=== PATIENT | male | born 1945 | race Caucasian/White ===

== ENCOUNTER 2019-10-08 14:46 | Outpatient (CLI) | payer MEDICARE, BC, SELFPAY ==
--- NOTE | ~2019-10-08 | US_ITS ---
EXAMINATION: US art doppler w press LE BI DATE: 10/08/2019 16:14 CDT INDICATION: Arterial insufficiency TECHNIQUE: Segmental pressures and plethysmographic and Doppler waveforms of the brachial and lower e xtremity arteries were obtained. COMPARISON: None. FINDINGS: Right and left brachial artery pressures of 139 mm Hg and 1:30 mm Hg, respectively, are concordant (n ormal difference <= 30 mmHg). The right high-thigh pressure index could not be calculated. (normal > 1.2). The right ankle-brachial index (MEÑO) is 1.33 (normal >= 0.9-1.0). The right great toe-brachial index (TBI) is 1.03 (normal >= 0.60). The right lower extremity segmental pressure gradients are normal (normal gradients <= 20-30 mmHg between adjacent levels on the same leg or the same levels on the two legs). Arterial Doppler wa veforms are biphasic. The left high-thigh pressure index is 1.37. The left MEÑO is 1.09. The left TBI is 0.99. The left lowe r extremity segmental pressure gradients are normal. Arterial Doppler waveforms are biphasic. IMPRESSION: 1. Normal bilateral ankle and toe brachial indices. Reviewed, dictated and finalized at location A.
== END 2019-10-08 14:47 | disposition home or self-care (01) ==
PROVIDERS: PCP Family Medicine; Visit Provider Orthopaedic Surgery
DX: I77.1 Stricture of artery (principal)
CPT/HCPCS: 93923

== ENCOUNTER 2022-01-24 15:46 | Inpatient (IN) | payer MEDICARE, BC, SELFPAY ==
--- NOTE | ~2022-01-24 | XR_ITS ---
EXAMINATION: XR foot LT 2V INDICATION: Left foot pain TECHNIQUE: Two views of the left foot are obtained in nonstandard projections. COMPARISON: None available FINDINGS: Fractures of the distal fibula and medial malleolus are described on the ankle radiographs. No definite additional fracture is identified. There is moderate osteoarthritis at the first metatar sophalangeal joint and severe osteoarthritis in multiple interphalangeal joints. IMPRESSION: 1. 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 2. Ankle fracture as detailed on the ankle radiographs. Reviewed, dictated and finalized at location A.
--- NOTE | ~2022-01-24 | XR_ITS ---
EXAMINATION: XR surgery orthopedic DATE: 02/02/2022 08:45 INDICATION: ORIF left ankle fracture. TECHNIQUE: 3 fluoroscopic images of the ankle were obtained during procedure performed by Dr. Hendrix . Radiologist was not present for the imaging or procedure. The amount of fluoroscopy time used durin g this procedure was 0.2 minutes. COMPARISON: 01/24/2022 FINDINGS: Interval open reduction internal fixation of the previously identified bimalleolar fracture of the le ft ankle. The medial malleolar fractures fixed with a single cannulated lag screw. The lateral malleo lar fractures fixed with a lateral plate and screws including 2 screws which span the distal tibiofib ular syndesmosis. Alignment appears near-anatomic. No new fractures identified. Expected small amount of postoperative gas in the soft tissues at the operative bed. The profiled portions of the tibiotal ar and subtalar joint spaces appear normal. IMPRESSION: 1. Near-anatomic alignment post internal fixation of medial and lateral malleolar fractures at the le ft ankle. Reviewed, dictated and finalized at location A. IMPRESSION: 1. Near-anatomic alignment post internal fixation of medial and lateral malleol ar fractures at the left ankle.
--- NOTE | ~2022-01-24 | XR_ITS ---
EXAMINATION: XR tibia fibula LT 2V INDICATION: Left leg pain and swelling TECHNIQUE: Two views of the left tibia and fibula are obtained. COMPARISON: None available FINDINGS: There are acute fractures of the distal fibula and medial malleolus, detailed on ankle radi ographs. No additional fracture is identified. Alignment at the knee is normal. IMPRESSION: 1. Acute fractures of the distal fibula and medial malleolus detailed on the ankle radiographs. Reviewed, dictated and finalized at location A. IMPRESSION: 1. Acute fractures of the distal fibula and medial malleolus detailed on the an kle radiographs.
--- NOTE | ~2022-01-24 | XR_ITS ---
EXAMINATION: XR chest 1V portable INDICATION: Tachycardia TECHNIQUE: Portable AP chest at 1755 hours COMPARISON: 09/15/2018 FINDINGS: The lungs are free of acute opacities. No pleural effusion or pneumothorax. The cardiomedia stinal silhouette is normal for technique. Changes of fusion procedure are noted in the lower cervica l spine. IMPRESSION: 1. No acute cardiopulmonary abnormality. Reviewed, dictated and finalized at location A.
--- NOTE | ~2022-01-24 | XR_ITS ---
EXAMINATION: XR ankle LT 2V DATE: 01/24/2022 16:51 INDICATION: Left ankle pain, initial encounter TECHNIQUE: Left ankle are obtained.. COMPARISON: None. FINDINGS: There is an acute, traumatic, closed, oblique fracture of the distal fibula extending to th e level of the tibial plafond. The distal fracture fragment is laterally displaced approximately one half shaft width. There is a transverse fracture of the medial malleolus just below the level of the tibial plafond. There is diffuse soft tissue swelling of ankle. Alignment at the tibiotalar joint joel ears to be maintained. No additional fracture is identified. IMPRESSION: 1. Acute oblique fracture of the distal fibula to the level of the tibial plafond with one half shaft width of lateral displacement of the distal fracture fragment. 2. Transverse fracture of the medial malleolus. Reviewed, dictated and finalized at location A. IMPRESSION: 1. Acute oblique fracture of the distal fibula to the level of the tibial plafo nd with one half shaft width of lateral displacement of the distal fracture fra gment. 2. Transverse fracture of the medial malleolus.
[2022-01-24 16:02] VITALS: BP 137/82; PULSE 101; RESP 16; TEMP 36.3; O2SAT 96
--- NOTE | 2022-01-24 16:24 | ED.LOWEXIN ---
HPI - Extremity Injury (Lower) General Chief Complaint: Extremity Injury, Lower Stated Complaint: FALL, LLE INJURY, ETOH ON BOARD Time Seen by Provider: 01/24/22 16:14 History of Present Illness HPI Narrative: pt drinks daily says no withdrawl shakes or sz but says fell yesterday or day before yesterday, son in room confirms it was yesterday due to etoh no loc/other injuryies all left ankle sweling bruising refusing pain meds on arrival not sure if previous injury Related Data Home Medications Medication Instructions Recorded Confirmed aspirin 81 mg tablet,delayed 81 mg PO DAILY 09/17/19 09/02/20 release (Adult Low Dose Aspirin) latanoprost 0.005 % eye drops 1 drop ophthalmic (eye) DAILY 09/17/19 09/02/20 donepezil 10 mg tablet 5 mg PO ONCE 09/01/20 09/02/20 Allergies Allergy/AdvReac Type Severity Reaction Status Date / Time house dust Allergy Unknown sneezing Verified 09/24/20 11:05 No Known Allergies Allergy Unknown Unverified 01/24/22 16:07 Review of Systems Constitutional: Comments: CONSTITUTIONAL: Denies fever, chills, or sweats. EYES: Denies visual changes, redness, or discharge. ENT: Denies rhinorrhea, congestion, sore throat, or otalgia. CARDIOVASCULAR: Denies chest pain, palpitations, or edema. RESPIRATORY: Denies cough or dyspnea. GASTROINTESTINAL: Denies abdominal pain, nausea, vomiting, or diarrhea. GENITOURINARY: Denies dysuria or hematuria. SKIN: Denies rash or itching. MUSCULOSKELETAL: Denies back pain, has left ankle bruising and swelling/injury NEUROLOGIC: Denies headache, numbness, or weakness. PSYCHIATRIC: Denies anxiety or depression. [facility] Past Medical History Medical History (Updated 01/24/22 @ 17:41 by Lucy Dee MD) Clawtoe, acquired Hallux valgus (acquired), right foot Hammertoe of right foot Family History Family History Father Family history of chronic obstructive pulmonary disease Patient's father is , Onset Age: 82 Diabetes mellitus Family history of hypercholesterolemia Family history of cardiovascular disease Family history of congestive heart failure Mother Family history of dementia Patient's mother is , Onset Age: 82 Diabetes mellitus Family history of hypercholesterolemia Family history of Alzheimer's disease Other Family history of arthritis Social History Social History Second hand tobacco smoke exposure: Yes Smoking end date: 07/30/77 Alcohol intake: current Alcohol use details: Patient is drinking at least a 12 pack of beer daily. Substance use: never Substance use type: does not use Gender identity (if verbalized by the patient): Male Exam Const: Other: APPEARANCE: Well appearing, no pain in distress, well-nourished. old etoh smell to breath Head normocephalic atraumtaic. EYES: PERRLA/EOMI, conjunctivae very clear. NOSE: Normal no drainage EARS:TMS clear Eris Snider, with good light reflex. THROAT: Pharynx clear, no exudate. NECK: Supple. No adenopathy, no masses. RESPIRATORY: Airway patent, repsirations nonlabored. Clear to auscultation bilaterally, no rales, rhonchi, wheezing. CARDIOVASCULAR: Regular rate and rhythm without murmurs rubs or gallops. ABDOMINAL: Soft, nontender, nondistended, no hepatosplenomegally MUSCULOSKELETAl: Moves all extremities. Strenght/ROM intact, No edema, No calf tenderness. but decreased rom left ankle with swelling/deformity some to foot and distal tib/fib no knee pain no hip pain or other ext injuries no neck or back pain NEURO: Alert. Cranial nerves II through XII intact. Good gait. Good coordination SKIN:: Warm, dry. Normal Color bruisin swelling left mid tib/fib to tip of toes PSYCHIATRIC: Normal affect/mood, normal interaction with parents. Course Consultations Consultation #1: called dr briones at 1730 wants admitted calling hospitalist at 1740 and pt updated and aw
[2022-01-24] MEDS: THIAMINE HCL 200 MG/2 ML VIAL 100 MG IV PUSH (17:44)
[2022-01-24] MEDS: LORazepam INJ (*CRX) 2 MG/ML VIAL 0.5 MG IV PUSH (17:44)
--- NOTE | 2022-01-24 17:48 | ECG_ITS ---
Measurements Intervals [place] Rate: 104 P: 52 NC: 198 QRS: 1 QRSD: 80 T: -21 QT: 325 QTc: 428 Interpretive Statements SINUS TACHYCARDIA NONSPECIFIC T-WAVE ABNORMALITY LOW VOLTAGE EKG COMPARED TO ECG 09/02/2018 19:35:59 SINUS TACHYCARDIA NOW PRESENT T-WAVE ABNORMALITY NOW PRESENT Electronically Signed On 01-24-2022 19:44:45 CDT by Priti Mendoza M.D.
[2022-01-24] MEDS: SODIUM CHLORIDE 0.9% IV 1,000 ML 150 ML IV CONT (17:52)
[2022-01-24 18:12] LABS: Basophils Percent Auto 0.3 % (0.2-1.2); Eosinophils Percent Auto 0.1 % (0-4.4); Hematocrit 41.1 % (42.0-52.0); Hemoglobin 14.5 g/dL (14.0-18.0); Immature Granulocyte Absolute 0.04 K/mm3 (0.00-0.031); Immature Granulocyte Percent A 0.4 % (0-0.5); Lymphocytes Absolute Auto 1.11 K/mm3 (0.9-3.2); Lymphocytes Percent Auto 10.5 % (18.3-44.2); Mean Corpuscular HGB Conc 35.3 g/dl (32-36); Mean Corpuscular Hemoglobin 33.1 pg (26-34); Mean Corpuscular Volume 93.8 fl (80-100); Monocytes Absolute Auto 0.9 K/mm3 (0.1-0.6); Monocytes Percent Auto 8.7 % (2.6-8.5); Neutrophils Absolute Auto 8.5 K/mm3 (1.3-6.7); Platelet Count Result 328 k/mm3 (150-375); Red Blood Count 4.38 M/mm3 (4.6-6.20); Red Cell Distribution Width 12.5 % (11.5-14.5); White Blood Count 10.6 K/mm3 (4.5-10.0)
[2022-01-24 18:21] LABS: Ethanol < 10 mg/dL (<10)
[2022-01-24 18:24] LABS: INR 1.2; Prothrombin Time 14.7 Seconds (11.1-14.7)
[2022-01-24 18:30] LABS: Alanine Aminotransferase 39 U/L (6-50); Albumin Level 4.5 g/dL (3.5-5.1); Alkaline Phosphatase 73 U/L (38-126); Anion Gap 10 mmol/L (8-16); Aspartate Amino Transferase 68 U/L (17-59); Bilirubin,Total 1.5 mg/dL (0.2-1.3); Blood Urea Nitrogen 7 mg/dL (9-20); Calcium 8.9 mg/dL (8.4-10.2); Carbon Dioxide 23 mmol/L (22-30); Chloride 94 mmol/L (98-107); Estimated CRCL calculation 69 ml/min; Estimated Glomerular Filt Rate > 60; Glucose 122 mg/dL (65-110); Magnesium 2.1 mg/dL (1.6-2.3); Potassium 4.2 mmol/L (3.4-5.0); Sodium 127 mmol/L (137-145)
[2022-01-24 18:53] VITALS: BP 154/94; PULSE 100; RESP 20; O2SAT 96
--- NOTE | 2022-01-24 19:00 | PM.IMHP ---
H&P: HPI History of Present Illness Date/Time: 01/24/22 190 Chief Complaint: Fall Narrative: Mr. Villalobos is a 76-year-old gentleman who states he fell yesterday and was having left ankle pain. Patient denies any lightheadedness, dizziness, syncopal, or near syncopal episodes. Patient states that he did simply tripped and fall. Patient denies any chest pain, shortness a breath, palpitations, orthopnea, or PND. States that he thought the pain would go away and then today when he was unable to move his ankle or bear weight he decided he needed to come to the hospital for further evaluation. Patient's son was at bedside earlier, but had to leave to go check on patient's spouse since she is hospitalized elsewhere. Patient's son did tell the emergency room provider that patient does drink daily between 6-12 beers. Patient's son stated that patient has gone through alcohol withdrawals in the past. Upon evaluation in emergency room patient was noted to have a bimalleolar fracture of the left lower extremity. Patient was noted to have a low-sodium, but it was improved from previous sodium of 123. Patient is unable to tell me what year it is or where he is at, but he is able to state who the president is. Patient did have a splint placed and Orthopedic surgery was consulted. Orthopedic surgery stated they would see patient in the a.m.. Patient has a known history of alcohol abuse, dyslipidemia, hypertension, Alzheimer's disease, and diabetes mellitus. Review of Systems Review of Systems: A 12 point review of systems was completed patient all pertinent positive and negative per HPI the remainder are unremarkable. [facility] Past Medical History Medical History (Updated 01/25/22 @ 00:55 by Susi Torres APRN) Alcohol abuse Benign essential HTN Clawtoe, acquired Dementia Hallux valgus (acquired), right foot Hammertoe of right foot Family History Family History Father Family history of chronic obstructive pulmonary disease Patient's father is , Onset Age: 82 Diabetes mellitus Family history of hypercholesterolemia Family history of cardiovascular disease Family history of congestive heart failure Mother Family history of dementia Patient's mother is , Onset Age: 82 Diabetes mellitus Family history of hypercholesterolemia Family history of Alzheimer's disease Other Family history of arthritis Social History Social History Smoking packs per day: 2 Smoking cigarettes per day: 40.0 Years smoked: 20 Smoking pack-years: 40.00 Smoking status: Former smoker Tobacco type: cigarettes Second hand tobacco smoke exposure: Yes Smoking end date: 01/25/80 Alcohol intake: never Drinks per week: 6 Alcohol use details: Patient is drinking at least a 12 pack of beer daily. Substance use: never Substance use type: does not use Gender identity (if verbalized by the patient): Male Spiritual care concerns: No Meds Home Medications and Allergies Home Medications Medication Instructions Recorded Confirmed Type aspirin 81 mg tablet,delayed 81 mg PO DAILY 09/17/19 01/24/22 History release (Adult Low Dose Aspirin) latanoprost 0.005 % eye drops 1 drop ophthalmic (eye) DAILY 09/17/19 01/24/22 History donepezil 10 mg tablet 5 mg PO ONCE 09/01/20 01/24/22 History amlodipine 5 mg tablet 5 mg PO DAILY 01/24/22 01/24/22 History atorvastatin 10 mg tablet 10 mg PO DAILY 01/24/22 01/24/22 History buspirone 10 mg tablet 10 mg PO BID 01/24/22 01/24/22 History lisinopril 20 1 tablet PO DAILY 01/24/22 01/24/22 History mg-hydrochlorothiazide 12.5 mg tablet metformin 500 mg tablet 500 mg PO BID 01/24/22 01/24/22 History quetiapine 25 mg tablet 25 mg PO BID 01/24/22 01/24/22 History sertraline 100 mg tablet 150 mg PO DAILY 01/24/22 01/24/22 History timolol maleate 0.5 % eye drops 1
[2022-01-24] MEDS: LORazepam INJ (*CRX) 2 MG/ML VIAL 1 MG IV PUSH (19:22)
[2022-01-24 20:00] VITALS: BP 148/75; PULSE 105; PULSE 99; RESP 18; TEMP 36.6; O2SAT 97
[2022-01-24 20:57] VITALS: BMI 28.3
--- NOTE | 2022-01-24 20:59 | ADMGEN ---
This patient, Zohaib Villalobos, was admitted to IMU Room 207-01. Patient/family oriented to hospital policies and general routines including ID bracelet, bed and alarms, visiting hours, pain management, procedures, bathroom and other care routines, personal items, smoking policy, room service/diet, and visiting hours. Information on how to activate the Rapid Response Team has been discussed. Patient/Family are encouraged to report perceived risks to care and to ask questions if they do not understand what they are told or what they should do.
[2022-01-24 22:00] VITALS: PULSE 112
[2022-01-24] MEDS: THIAMINE HCL INJ 100 MG, FOLIC ACID INJ 1 MG, MULTIVITAMINS-12 INJ VIAL 1 5 ML, MULTIVI... 125 MG IV CONT (22:30)
[2022-01-24] MEDS: chlordiazePOXIDE (*CRX) 25 MG CAPSULE PO (22:32)
[2022-01-25] VITALS (10 sets, daily range): BP systolic 138–158; BP diastolic 71–102; PULSE 77–99; RESP 18–22; TEMP 36.1–37.1; O2SAT 96–98
[2022-01-25 05:15] LABS: Basophils Percent Auto 0.3 % (0.2-1.2); Eosinophils Percent Auto 0.3 % (0-4.4); Hemoglobin 13.4 g/dL (14.0-18.0); Immature Granulocyte Absolute 0.04 K/mm3 (0.00-0.031); Immature Granulocyte Percent A 0.5 % (0-0.5); Lymphocytes Absolute Auto 1.34 K/mm3 (0.9-3.2); Lymphocytes Percent Auto 17.4 % (18.3-44.2); Mean Corpuscular HGB Conc 36.2 g/dl (32-36); Mean Corpuscular Hemoglobin 33.8 pg (26-34); Mean Corpuscular Volume 93.4 fl (80-100); Mean Platelet Volume 9.4 fl (7.4-10.4); Monocytes Absolute Auto 0.9 K/mm3 (0.1-0.6); Monocytes Percent Auto 11.2 % (2.6-8.5); Neutrophils Absolute Auto 5.4 K/mm3 (1.3-6.7); Neutrophils Percent Auto 70.3 % (45.5-73.1); Platelet Count Result 250 k/mm3 (150-375); Red Blood Count 3.96 M/mm3 (4.6-6.20); Red Cell Distribution Width 12.1 % (11.5-14.5); White Blood Count 7.7 K/mm3 (4.5-10.0)
[2022-01-25 05:26] LABS: Alanine Aminotransferase 32 U/L (6-50); Albumin Level 3.9 g/dL (3.5-5.1); Alkaline Phosphatase 61 U/L (38-126); Anion Gap 7 mmol/L (8-16); Aspartate Amino Transferase 47 U/L (17-59); Bilirubin,Total 1.4 mg/dL (0.2-1.3); Blood Urea Nitrogen 6 mg/dL (9-20); Calcium 8.2 mg/dL (8.4-10.2); Carbon Dioxide 25 mmol/L (22-30); Chloride 98 mmol/L (98-107); Estimated CRCL calculation 74 ml/min; Estimated Glomerular Filt Rate > 60; Glucose 87 mg/dL (65-110); Magnesium 2.2 mg/dL (1.6-2.3); Potassium 3.5 mmol/L (3.4-5.0); Sodium 130 mmol/L (137-145)
[2022-01-25] MEDS: chlordiazePOXIDE (*CRX) 25 MG CAPSULE PO ×3 (06:40→21:55)
--- NOTE | 2022-01-25 12:36 | PM.CNOR ---
Assessment and Plan Assessment and plan (1) Bimalleolar ankle fracture: Qualifiers: Encounter type: initial encounter Fracture type: closed Laterality: left Qualified Code(s): S82.842A - Displaced bimalleolar fracture of left lower leg, initial encounter for closed fracture Code(s): S82.843A - Displaced bimalleolar fracture of unspecified lower leg, initial encounter for closed fracture Status: Acute Assessment and Plan: Updated history, physical exam and radiographs reviewed with the patient. Interval changes reviewed. Previous patient for bilateral foot and toe deformity. Fall yesterday with left ankle fracture. Admitted for medical observation after splinting. Treatment options including surgical and nonoperative treatment were reviewed. Risks and benefits of each as well as alternatives reviewed. Conservative treatment ice, compression and elevation. Recommend surgical treatment once patient is medically stable. Discussed open reduction internal fixation. Nonweightbearing in the interim. History of Present Illness HPI Consult date: 01/25/22 Requesting physician: Lucy Dee MD Chief complaint: bimalleolar left ankle fx,etoh withdrawal/abuse Narrative: 76-year-old gentleman known to the Orthopedic service for bilateral foot deformity presented to the emergency room yesterday after a fall at home. Complaint of left ankle pain and swelling. Radiographs showed ankle fracture. Patient was splinted in the emergency room has been admitted to the hospital for further care. Patient has had history of multiple falls. He also has a history of neuropathy lower extremities. Complains of pain at the left ankle on both the inner and outer aspect. Denies loss of consciousness. Review of Systems Constitutional: Constitutional: Denies fever(s) Eyes: Eyes: Denies blurry vision ENT: Reports Normal hearing present Cardiovascular: Cardiovascular: Denies chest pain and Denies dyspnea Respiratory: Respiratory: Denies dyspnea and Denies wheezing Gastrointestinal: Gastrointestinal: Denies abdominal pain Genitourinary: Genitourinary: Denies urinary urgency Musculoskeletal: Musculoskeletal: Reports as per HPI and Denies numbness Integumentary/Breasts: Skin/Breast: Denies changing lesions and Denies sores Neurologic: Reports Normal hearing present, Denies behavioral changes, Denies confusion, Denies numbness and Denies convulsions Psychiatric: Psychiatric: Denies behavioral changes, Denies confusion and Denies hallucinations Endocrine: Endocrine: Denies heat intolerance Hematologic/Lymphatic: Hematologic/Lymphatic: Denies easy bleeding Allergic/Immunologic: Allergic/Immunologic: Denies wheezing PMFSH Past Medical History Medical History Alcohol abuse Benign essential HTN Clawtoe, acquired Dementia Hallux valgus (acquired), right foot Hammertoe of right foot Family History Family History Father Family history of chronic obstructive pulmonary disease Patient's father is , Onset Age: 82 Diabetes mellitus Family history of hypercholesterolemia Family history of cardiovascular disease Family history of congestive heart failure Mother Family history of dementia Patient's mother is , Onset Age: 82 Diabetes mellitus Family history of hypercholesterolemia Family history of Alzheimer's disease Other Family history of arthritis Social History Social History Smoking packs per day: 2 Smoking cigarettes per day: 40.0 Years smoked: 20 Smoking pack-years: 40.00 Smoking status: Former smoker Tobacco type: cigarettes Second hand tobacco smoke exposure: Yes Smoking end date: 01/25/80 Alcohol intake: never Drinks per week: 6 Alcohol use details: Patient is drinking at least a 12 pack
--- NOTE | 2022-01-25 14:02 | PM.IMPN ---
Progress Note: A&P Assessment and Plan (1) Bimalleolar ankle fracture: Qualifiers: Encounter type: initial encounter Fracture type: closed Laterality: left Qualified Code(s): S82.842A - Displaced bimalleolar fracture of left lower leg, initial encounter for closed fracture Code(s): S82.843A - Displaced bimalleolar fracture of unspecified lower leg, initial encounter for closed fracture Status: Acute Assessment and Plan: Orthopedic surgery has been consult and appreciate further recommendations. Patient does have a splint on at this time and states he is not having any pain. (2) Alcohol abuse: Code(s): F10.10 - Alcohol abuse, uncomplicated Status: Acute Assessment and Plan: Will place patient on CIWA protocol with p.r.n. Ativan IV. Will also place patient on scheduled Librium. Will also have banana bag infusing. (3) Benign essential HTN: Code(s): I10 - Essential (primary) hypertension Status: Acute Assessment and Plan: Will resume patient's home medications once verified home medication list and adjust medications accordingly for optimal blood pressure control. Subjective Date/time seen: 01/25/22 14:02 pain control no new complaints Exam Narrative: Constitutional: Patient is well-nourished in no acute distress. Patient is alert and oriented x1 HEENT: Moist mucous membranes. No scleral icterus. No lymphadenopathy. Neck: No carotid bruits noted no JVD noted Lungs: Lung sounds are clear to auscultation bilaterally. No accessory muscle use. No rhonchi, rales, or wheezes noted. Cardiovascular: Apical pulse is regular rate and rhythm. S1-S2 noted, no S3 or S4 noted. No gallops, murmurs, or rubs noted. Abdomen: Soft, round, and nontender. No palpable masses. Extremities: Patient has a splint noted to left lower extremity. Patient's cap refills less than 2 seconds. Patient is able to move toes without any difficulty. Skin: No rashes or lesions. Warm and dry. Skin is intact. Neurological: No focal neurological deficits. Cranial nerves II-XII grossly intact. Psychiatric: Cooperative, appropriate mood, and affect Objective Data Vital Signs Vital Signs: Vital Signs - 24 hr 01/24/22 16:02 01/24/22 18:53 01/24/22 20:00 Temperature 97.3 F L 97.9 F Pulse Rate 101 H 100 105 H Respiratory Rate 16 20 18 Blood Pressure 137/82 154/94 H 148/75 H Pulse Oximetry 96 96 97 Oxygen Delivery Room Air 01/25/22 00:00 01/24/22 20:00 01/25/22 00:00 Temperature 97.2 F L Pulse Rate 89 Respiratory Rate 20 Blood Pressure 152/95 H Pulse Oximetry 97 Oxygen Delivery Room Air Room Air 01/25/22 04:00 01/24/22 20:00 01/24/22 22:00 Temperature Pulse Rate 99 112 H Respiratory Rate Blood Pressure Pulse Oximetry Oxygen Delivery Room Air 01/25/22 00:00 01/25/22 02:00 01/25/22 04:00 Temperature Pulse Rate 88 93 95 Respiratory Rate Blood Pressure Pulse Oximetry Oxygen Delivery 01/25/22 06:00 01/25/22 04:00 01/25/22 08:03 Temperature 97.0 F L 98.6 F Pulse Rate 89 78 84 Respiratory Rate 22 H 20 Blood Pressure 138/88 143/83 H Pulse Oximetry 97 98 Oxygen Delivery 01/25/22 08:00 01/25/22 12:13 01/25/22 12:00 Temperature 98.8 F Pulse Rate 94 91 Respiratory Rate 20 Blood Pressure 150/85 H Pulse Oximetry 98 96 Oxygen Delivery Room Air Intake/Output Intake/Output: Intake & Output 01/22/22 01/23/22 01/24/22 01/25/22 23:59 23:59 23:59 23:59 Intake Total 1063.2 Output Total 225 Balance 838.2 Meds/Results Medications: Active Medications Generic Name Dose Route Start Last Admin Trade Name Freq PRN Reason Stop Dose Admin Chlordiazepoxide HCl 25 mg 01/24/22 22:00 01/25/22 06:40 Chlordiazepoxide (*Crx) 25 Mg Capsule PO 25 mg Q8HR HERMINIO Administration Lorazepam 1 mg 01/24/22 21:03 Lorazepam Inj (*Crx) 2 Mg/Ml Vial IV PUSH Q2H PRN Al
[2022-01-25 16:38] LABS: EDCOVIDSCREEN Negative (Negative)
--- NOTE | 2022-01-25 17:19 | PC.NURSE ---
This patient, Zohaib Villalobos, was transferred to [facility] on 01/25/22 at 1719. Personal belongings sent with patient. Report given to Caroline HUNTER. Appropriate documentation sent with patient.
[2022-01-25] MEDS: busPIRone HCL 10 MG TABLET PO (18:57)
[2022-01-25] MEDS: LATANOPROST 0.005% OP SOLN 2.5 ML BTL 1 DROP EACH EYE (21:55)
[2022-01-26 03:40] VITALS: O2SAT 95
[2022-01-26] MEDS: chlordiazePOXIDE (*CRX) 25 MG CAPSULE PO ×3 (05:53→21:22)
[2022-01-26 06:12] VITALS: BP 134/96; PULSE 76; RESP 18; TEMP 36.2; O2SAT 97
--- NOTE | 2022-01-26 09:21 | PM.PNORT ---
Progress Note: A&P Assessment and Plan (1) Bimalleolar ankle fracture: Qualifiers: Encounter type: initial encounter Fracture type: closed Laterality: left Qualified Code(s): S82.842A - Displaced bimalleolar fracture of left lower leg, initial encounter for closed fracture <Savannah Emelyn. Tanwe, COMPENSATION EXPERT - Last Filed: 01/26/22 12:43> Code(s): S82.843A - Displaced bimalleolar fracture of unspecified lower leg, initial encounter for closed fracture <Savannah M. Ruwe, COMPENSATION EXPERT - Last Filed: 01/26/22 12:43> Status: Acute <Savannah M. Ruwe, COMPENSATION EXPERT - Last Filed: 01/26/22 12:43> Assessment and Plan: Radiographs with left ankle fracture. The fracture type and injury as well as radiographs discussed with the patient. Operative and nonoperative treatment options reviewed. Patient is confused to place/situation today. Currently on ETOH withdrawal precautions. Risk of nonunion, malunion or late displacement discussed. Stiffness, pain and possible dysfunction of the joint discussed. Fracture precautions and activity restrictions reviewed. The patient verbalizes understanding. Plan: ORIF left ankle. Possibility of delayed surgical intervention due to swelling/current medical condition/mental status. Will determine surgical intervention plans pending discussion with Dr. Hendrix. Currently cleared from the hospitalist team to proceed with surgery. Continue NWB LLE. Pain control. Elevate heel. Ice. <Savannah Emelyn. Tanwe, COMPENSATION EXPERT - Last Filed: 01/26/22 12:43> (2) Hallux valgus (acquired), right foot: Code(s): M20.11 - Hallux valgus (acquired), right foot <Savannah M. Ruwe, COMPENSATION EXPERT - Last Filed: 01/26/22 12:43> Status: Acute <Savannah M. Tanwe, COMPENSATION EXPERT - Last Filed: 01/26/22 12:43> (3) Clawtoe, acquired: Qualifiers: Laterality: right Qualified Code(s): M20.5X1 - Other deformities of toe(s) (acquired), right foot <Savannah M. Ruwe, COMPENSATION EXPERT - Last Filed: 01/26/22 12:43> Code(s): M20.5X9 - Other deformities of toe(s) (acquired), unspecified foot <Savannah Callejas [facility] - Last Filed: 01/26/22 12:43> Status: Acute <Savannah Callejas [facility] - Last Filed: 01/26/22 12:43> (4) Hammertoe of right foot: Code(s): M20.41 - Other hammer toe(s) (acquired), right foot <Savannah Callejas [facility] - Last Filed: 01/26/22 12:43> Status: Acute <Savannah Callejas, [facility] - Last Filed: 01/26/22 12:43> (5) Alcohol abuse: Code(s): F10.10 - Alcohol abuse, uncomplicated <Savannah Callejas [facility] - Last Filed: 01/26/22 12:43> Status: Acute <Savannah Callejas [facility] - Last Filed: 01/26/22 12:43> Assessment and Plan: On ETOH withdrawal precautions. Disoriented to situation/place. <Savannah Callejas [facility] - Last Filed: 01/26/22 12:43> Additional Plan Concern for surgical treatment with patient's mental status inability to follow-up postoperative rehab limitations. In addition, patient with malnourishment and low oral intake. Current plan is to continue to monitor patient and if more stable proceed with surgery at that time. <Spenser Hendrix MD - Last Filed: 01/26/22 14:34> Subjective Subjective Date/Time Seen: 01/26/22 09:21 <Savannah Callejas [facility] - Last Filed: 01/26/22 12:43> Interval history: Left ankle fracture. Patient with some confusion regarding place/situation. Mild left ankle pain. Well controlled. No new concerns. <Savannah Callejas [facility] - Last Filed: 01/26/22 12:43> Review of Systems Review of Systems: All systems reviewed & are unremarkable except as noted in HPI and below <AMBROSE DaltonP - Last Filed: 01/26/22 12:43> Exam HENMT: Head: normal to inspection, normocephalic and atraumatic <FANNIE Dalton - Last Filed: 01/26/22 12:43> Neck: Neck: supple and nontender <FANNIE Dalton - Last Filed: 01/26/22 12:43> Chest: Chest palpation & inspection: normal inspection of the chest <FANNIE Dalton - Last Filed: 01/26/22 1
[2022-01-26] MEDS: busPIRone HCL 10 MG TABLET PO ×2 (09:40→16:38)
[2022-01-26] MEDS: SERTRALINE HCL 50 MG TABLET 150 MG PO (09:40)
[2022-01-26] MEDS: hydroCHLOROthiazide 12.5 MG CAPSULE PO (09:40)
[2022-01-26] MEDS: amLODIPine BESYLATE 5 MG TABLET PO (09:40)
[2022-01-26] MEDS: lisinopriL 20 MG TABLET PO (09:40)
[2022-01-26] MEDS: DONEPEZIL HCL 5 MG TABLET PO (09:41)
[2022-01-26] MEDS: ATORVASTATIN 10 MG TABLET PO (09:41)
[2022-01-26] MEDS: ASPIRIN 81 MG ENTERIC TABLET PO (09:41)
[2022-01-26] MEDS: TIMOLOL MALEATE 0.5% OP SOLN 5 ML BOTTLE 1 DROP EACH EYE (09:41)
--- NOTE | 2022-01-26 12:07 | PM.IMPN ---
Progress Note: A&P Assessment and Plan (1) Bimalleolar ankle fracture: Qualifiers: Encounter type: initial encounter Fracture type: closed Laterality: left Qualified Code(s): S82.842A - Displaced bimalleolar fracture of left lower leg, initial encounter for closed fracture Code(s): S82.843A - Displaced bimalleolar fracture of unspecified lower leg, initial encounter for closed fracture Status: Acute Assessment and Plan: Orthopedic surgery has been consult and appreciate further recommendations. Patient does have a splint on at this time and states he is not having any pain. patient is okay to proceed with surgery from medical standpoint. No further workup required preop. (2) Alcohol abuse: Code(s): F10.10 - Alcohol abuse, uncomplicated Status: Acute Assessment and Plan: Will place patient on CIWA protocol with p.r.n. Ativan IV. Will also place patient on scheduled Librium. Patient is not having any tremors or signs of withdrawal this point time. (3) Benign essential HTN: Code(s): I10 - Essential (primary) hypertension Status: Acute Assessment and Plan: Will resume patient's home medications once verified home medication list and adjust medications accordingly for optimal blood pressure control. Subjective Date/time seen: 01/26/22 12:07 Pain controlled, no new complaints Exam Narrative: Constitutional: Patient is well-nourished in no acute distress. Patient is alert and oriented x1 HEENT: Moist mucous membranes. No scleral icterus. No lymphadenopathy. Neck: No carotid bruits noted no JVD noted Lungs: Lung sounds are clear to auscultation bilaterally. No accessory muscle use. No rhonchi, rales, or wheezes noted. Cardiovascular: Apical pulse is regular rate and rhythm. S1-S2 noted, no S3 or S4 noted. No gallops, murmurs, or rubs noted. Abdomen: Soft, round, and nontender. No palpable masses. Extremities: Patient has a splint noted to left lower extremity. Patient's cap refills less than 2 seconds. Patient is able to move toes without any difficulty. Skin: No rashes or lesions. Warm and dry. Skin is intact. Neurological: No focal neurological deficits. Cranial nerves II-XII grossly intact. Psychiatric: Cooperative, appropriate mood, and affect Objective Data Vital Signs Vital Signs: Vital Signs - 24 hr 01/25/22 12:13 01/25/22 16:14 01/25/22 22:22 Temperature 98.8 F 98.1 F 97.7 F Pulse Rate 94 99 77 Respiratory Rate 20 20 18 Blood Pressure 150/85 H 151/71 H 158/102 H Pulse Oximetry 96 98 96 Oxygen Delivery 01/25/22 20:00 01/26/22 03:40 01/26/22 06:12 Temperature 97.2 F L Pulse Rate 76 Respiratory Rate 18 Blood Pressure 134/96 H Pulse Oximetry 95 97 Oxygen Delivery Room Air Room Air Intake/Output Intake/Output: Intake & Output 01/23/22 01/24/22 01/25/22 01/26/22 23:59 23:59 23:59 23:59 Intake Total 1620.2 150 Output Total 475 300 Balance 1145.2 -150 Meds/Results Medications: Active Medications Generic Name Dose Route Start Last Admin Trade Name Freq PRN Reason Stop Dose Admin Amlodipine Besylate 5 mg 01/26/22 09:00 01/26/22 09:40 Amlodipine Besylate 5 Mg Tablet PO 5 mg DAILY HERMINIO Administration Aspirin 81 mg 01/26/22 09:00 01/26/22 09:41 Aspirin 81 Mg Enteric Tablet PO 81 mg DAILY HERMINIO Administration Atorvastatin Calcium 10 mg 01/26/22 09:00 01/26/22 09:41 Atorvastatin 10 Mg Tablet PO 10 mg DAILY HERMINIO Administration Buspirone HCl 10 mg 01/25/22 17:00 01/26/22 09:40 Buspirone Hcl 10 Mg Tablet PO 10 mg BID HERMINIO Administration Chlordiazepoxide HCl 25 mg 01/24/22 22:00 01/26/22 05:53 Chlordiazepoxide (*Crx) 25 Mg Capsule PO 25 mg Q8HR HERMINIO Administration Donepezil HCl 5 mg 01/26/22 09:00 01/26/22 09:41 Donepezil Hcl 5 Mg Tablet PO 5 mg DAILY HERMINIO Administration Hydrochlorothiazide 12.5 mg 01/26/22 09:00 01/26/22 09:40
[2022-01-26 14:00] VITALS: BP 133/75; PULSE 80; RESP 16; TEMP 36.3; O2SAT 96
[2022-01-26] MEDS: LATANOPROST 0.005% OP SOLN 2.5 ML BTL 1 DROP EACH EYE (21:22)
[2022-01-26] MEDS: LORazepam INJ (*CRX) 2 MG/ML VIAL 1 MG IV PUSH (21:30)
[2022-01-26 21:55] VITALS: BP 128/74; PULSE 79; RESP 18; TEMP 36.3; O2SAT 94
[2022-01-26 21:59] LABS: Glucose Point of Care 111 mg/dl (65-105)
[2022-01-27] MEDS: chlordiazePOXIDE (*CRX) 25 MG CAPSULE PO ×3 (05:53→20:15)
[2022-01-27 06:00] VITALS: BP 153/105; PULSE 78; RESP 18; TEMP 36.6; O2SAT 97
[2022-01-27 08:02] LABS: Glucose Point of Care 111 mg/dl (65-105)
[2022-01-27] MEDS: amLODIPine BESYLATE 5 MG TABLET PO (09:09)
[2022-01-27] MEDS: ATORVASTATIN 10 MG TABLET PO (09:09)
[2022-01-27] MEDS: DONEPEZIL HCL 5 MG TABLET PO (09:09)
[2022-01-27] MEDS: ASPIRIN 81 MG ENTERIC TABLET PO (09:09)
[2022-01-27] MEDS: SERTRALINE HCL 50 MG TABLET 150 MG PO (09:09)
[2022-01-27] MEDS: hydroCHLOROthiazide 12.5 MG CAPSULE PO (09:09)
[2022-01-27] MEDS: busPIRone HCL 10 MG TABLET PO ×2 (09:10→17:49)
[2022-01-27] MEDS: TIMOLOL MALEATE 0.5% OP SOLN 5 ML BOTTLE 1 DROP EACH EYE (09:10)
[2022-01-27] MEDS: lisinopriL 20 MG TABLET PO (09:10)
[2022-01-27 09:33] LABS: Hematocrit 43.2 % (42.0-52.0); Hemoglobin 14.9 g/dL (14.0-18.0); Mean Corpuscular HGB Conc 34.5 g/dl (32-36); Mean Corpuscular Hemoglobin 33.1 pg (26-34); Mean Platelet Volume 9.2 fl (7.4-10.4); Platelet Count Result 293 k/mm3 (150-375); Red Cell Distribution Width 12.6 % (11.5-14.5); White Blood Count 8.7 K/mm3 (4.5-10.0)
[2022-01-27 09:51] LABS: Anion Gap 9 mmol/L (8-16); Blood Urea Nitrogen 8 mg/dL (9-20); Calcium 8.6 mg/dL (8.4-10.2); Carbon Dioxide 24 mmol/L (22-30); Chloride 98 mmol/L (98-107); Estimated CRCL calculation 74 ml/min; Estimated Glomerular Filt Rate > 60; Glucose 135 mg/dL (65-110); Potassium 3.3 mmol/L (3.4-5.0); Sodium 131 mmol/L (137-145)
--- NOTE | 2022-01-27 11:16 | PM.PNORT ---
Progress Note: A&P Assessment and Plan (1) Bimalleolar ankle fracture: Qualifiers: Encounter type: initial encounter Fracture type: closed Laterality: left Qualified Code(s): S82.842A - Displaced bimalleolar fracture of left lower leg, initial encounter for closed fracture Code(s): S82.843A - Displaced bimalleolar fracture of unspecified lower leg, initial encounter for closed fracture Status: Acute Assessment and Plan: More oriented today. Patient may have been in acute withdrawal. Pain controlled. Discussed operative and non operative treatment for his left ankle fracture. Patient needs to be coherent enough to follow postoperative rehab restrictions and protocol. Improved nutrition for wound healing. Tentatively scheduled for surgery next week if medically stable. Continue NWB LLE. Pain control. Elevate heel. Ice. Additional Plan Concern for surgical treatment with patient's mental status inability to follow-up postoperative rehab limitations. In addition, patient with malnourishment and low oral intake. Current plan is to continue to monitor patient and if more stable proceed with surgery at that time. Tentatively on schedule for February 02. Subjective Subjective Date/Time Seen: 01/27/22 11:16 Interval history: Left ankle fracture. Patient awake, more alert today. Oriented to self and place. Mild left ankle pain. Well controlled. No new concerns. Exam Const: General: No confusion Orientation/consciousness: No confusion HENMT: Head: normal to inspection, normocephalic and atraumatic Neck: Neck: supple and nontender Chest: Chest palpation & inspection: normal inspection of the chest Resp: Effort & Inspection: normal respiratory effort and no audible wheezes Cardio: Rate: regular rate : General: Yes deferred Skin: General skin exam: no rashes or lesions noted Neuro: General: No confusion Cranial nerves: Yes Normal hearing present Extrem: General: capillary refill normal Right upper extremity: normal to inspection Left upper extremity: normal to inspection Right lower extremity: normal to inspection and hip/thigh Details: normal to inspection Left lower extremity: hip/thigh Details: normal to inspection, knee Details: normal to inspection and knee ligament exam normal Details: anterior drawer test normal, valgus stress test normal, varus stress test normal and Chuy's test normal, ankle (no calf tenderness) Details: abnormal to inspection ( Obvious swelling at the ankle joint), tenderness ( lateral malleolus), swelling (moderate lateral ankle), abnormal ROM Details: pain with active ROM Details: with plantar flexion and with dorsiflexion and with range as follows ( limited secondary to injury), crepitus Details: at the lateral malleolus and other ( good capillary refill in toes, 2+ DP pulse) and foot Details: normal capillary refill, toes with normal ROM, vascular exam Details: dorsalis pedis pulse present and motor-sensory exam Psych: Affect: normal affect Objective Data Vital Signs Vital Signs: Vital Signs - 24 hr 01/26/22 13:06 01/26/22 13:27 01/26/22 14:00 Temperature 97.3 F L Pulse Rate 80 Respiratory Rate 16 Blood Pressure 133/75 Pulse Oximetry 96 Oxygen Delivery Room Air Room Air 01/26/22 21:55 01/26/22 20:00 01/27/22 06:00 Temperature 97.3 F L 97.8 F Pulse Rate 79 78 Respiratory Rate 18 18 Blood Pressure 128/74 153/105 H Pulse Oximetry 94 97 Oxygen Delivery Room Air Intake/Output Intake/Output: Intake & Output 01/24/22 01/25/22 01/26/22 01/27/22 23:59 23:59 23:59 23:59 Intake Total 1620.2 150 760 Output Total 475 300 200 Balance 1145.2 -150 560 Meds/Results Medications: Active Medications Generic Name Dose Route Start Last Admin Trade Name Freq PRN Reason Stop Dose Admin Amlodipine Besylate 5 mg 01/26/22 09:00 01/27/22 09:09 Amlodipine Besylate 5 Mg Tablet PO 5 mg DAILY [facility] Ad
[2022-01-27 11:42] LABS: Glucose Point of Care 120 mg/dl (65-105)
--- NOTE | 2022-01-27 11:43 | PM.IMPN ---
Progress Note: A&P Assessment and Plan (1) Bimalleolar ankle fracture: Qualifiers: Encounter type: initial encounter Fracture type: closed Laterality: left Qualified Code(s): S82.842A - Displaced bimalleolar fracture of left lower leg, initial encounter for closed fracture Code(s): S82.843A - Displaced bimalleolar fracture of unspecified lower leg, initial encounter for closed fracture Status: Acute Assessment and Plan: Orthopedic surgery has been consult and appreciate further recommendations. Patient does have a splint on at this time and states he is not having any pain. patient is okay to proceed with surgery from medical standpoint. That being said, patient did receive 1 dose of Ativan for confusion possibly related to alcohol withdrawal. Question baseline though. He may have some underlying dementia at baseline. Will discuss with family and see what baseline capacity is. (2) Alcohol abuse: Code(s): F10.10 - Alcohol abuse, uncomplicated Status: Acute Assessment and Plan: Will place patient on CIWA protocol with p.r.n. Ativan IV. Received 1 dose last night. (3) Benign essential HTN: Code(s): I10 - Essential (primary) hypertension Status: Acute Assessment and Plan: Continue current regimen Subjective Date/time seen: 01/27/22 11:43 Patient was mildly confused this morning. Was able to tell me he was at a medical facility but did know the name of the hospital and he also did not know the date. He was able to tell me why he was in the hospital understood was going on. He was able to tell me who the President and vice-president were. Denies pain or any other complaints. Question baseline capacity. He did receive 1 dose of Ativan last night for confusion but again I am unsure what his baseline is Exam Narrative: Constitutional: Patient is well-nourished in no acute distress. Patient is alert and oriented x2 HEENT: Moist mucous membranes. No scleral icterus. No lymphadenopathy. Neck: No carotid bruits noted no JVD noted Lungs: Lung sounds are clear to auscultation bilaterally. No accessory muscle use. No rhonchi, rales, or wheezes noted. Cardiovascular: Apical pulse is regular rate and rhythm. S1-S2 noted, no S3 or S4 noted. No gallops, murmurs, or rubs noted. Abdomen: Soft, round, and nontender. No palpable masses. Extremities: Patient has a splint noted to left lower extremity. Patient's cap refills less than 2 seconds. Patient is able to move toes without any difficulty. Skin: No rashes or lesions. Warm and dry. Skin is intact. Neurological: No focal neurological deficits. Cranial nerves II-XII grossly intact. Psychiatric: Cooperative, appropriate mood, and affect Objective Data Vital Signs Vital Signs: Vital Signs - 24 hr 01/26/22 13:06 01/26/22 13:27 01/26/22 14:00 Temperature 97.3 F L Pulse Rate 80 Respiratory Rate 16 Blood Pressure 133/75 Pulse Oximetry 96 Oxygen Delivery Room Air Room Air 01/26/22 21:55 01/26/22 20:00 01/27/22 06:00 Temperature 97.3 F L 97.8 F Pulse Rate 79 78 Respiratory Rate 18 18 Blood Pressure 128/74 153/105 H Pulse Oximetry 94 97 Oxygen Delivery Room Air Intake/Output Intake/Output: Intake & Output 01/24/22 01/25/22 01/26/22 01/27/22 23:59 23:59 23:59 23:59 Intake Total 1620.2 150 760 Output Total 475 300 200 Balance 1145.2 -150 560 Meds/Results Medications: Active Medications Generic Name Dose Route Start Last Admin Trade Name Freq PRN Reason Stop Dose Admin Amlodipine Besylate 5 mg 01/26/22 09:00 01/27/22 09:09 Amlodipine Besylate 5 Mg Tablet PO 5 mg DAILY HERMINIO Administration Aspirin 81 mg 01/26/22 09:00 01/27/22 09:09 Aspirin 81 Mg Enteric Tablet PO 81 mg DAILY HERMINIO Administration Atorvastatin Calcium 10 mg 01/26/22 09:00 01/27/22 09:09 Atorvastatin 10 Mg Tablet PO 10 mg DAILY HERMINIO Administration Buspirone HC
[2022-01-27 13:54] VITALS: BP 112/51; PULSE 63; RESP 18; TEMP 35.9; O2SAT 95
[2022-01-27 17:00] LABS: Glucose Point of Care 115 mg/dl (65-105)
[2022-01-27] MEDS: LATANOPROST 0.005% OP SOLN 2.5 ML BTL 1 DROP EACH EYE (20:16)
[2022-01-27] MEDS: LORazepam INJ (*CRX) 2 MG/ML VIAL 1 MG IV PUSH (20:19)
[2022-01-27 22:00] VITALS: BP 135/77; PULSE 70; RESP 16; TEMP 36.2; O2SAT 93
[2022-01-28] MEDS: chlordiazePOXIDE (*CRX) 25 MG CAPSULE PO ×2 (05:54→20:06)
[2022-01-28 06:00] VITALS: BP 152/95; PULSE 82; RESP 16; TEMP 36.1; O2SAT 93
[2022-01-28 07:39] LABS: Glucose Point of Care 93 mg/dl (65-105)
[2022-01-28] MEDS: SERTRALINE HCL 50 MG TABLET 150 MG PO (08:38)
[2022-01-28] MEDS: ATORVASTATIN 10 MG TABLET PO (08:39)
[2022-01-28] MEDS: ASPIRIN 81 MG ENTERIC TABLET PO (08:39)
[2022-01-28] MEDS: hydroCHLOROthiazide 12.5 MG CAPSULE PO (08:39)
[2022-01-28] MEDS: amLODIPine BESYLATE 5 MG TABLET PO (08:39)
[2022-01-28] MEDS: DONEPEZIL HCL 5 MG TABLET PO (08:39)
[2022-01-28] MEDS: TIMOLOL MALEATE 0.5% OP SOLN 5 ML BOTTLE 1 DROP EACH EYE (08:40)
[2022-01-28] MEDS: busPIRone HCL 10 MG TABLET PO ×2 (08:40→16:56)
[2022-01-28] MEDS: lisinopriL 20 MG TABLET PO (08:40)
[2022-01-28] MEDS: POTASSIUM CHLORIDE 20 MEQ PACKET (FOR LIQUID) 40 MEQ PO (10:13)
--- NOTE | 2022-01-28 10:47 | PM.PNORT ---
Progress Note: A&P Assessment and Plan (1) Bimalleolar ankle fracture: Qualifiers: Encounter type: initial encounter Fracture type: closed Laterality: left Qualified Code(s): S82.842A - Displaced bimalleolar fracture of left lower leg, initial encounter for closed fracture Code(s): S82.843A - Displaced bimalleolar fracture of unspecified lower leg, initial encounter for closed fracture Status: Acute Assessment and Plan: Pain controlled. Discussed operative and non operative treatment for his left ankle fracture. Patient needs to be coherent enough to follow postoperative rehab restrictions and protocol. Improved nutrition for wound healing. Tentatively scheduled for surgery next week if medically stable. Start nutritional support. Continue NWB LLE. Pain control. Elevate heel. Ice. Additional Plan Concern for surgical treatment with patient's mental status inability to follow-up postoperative rehab limitations. In addition, patient with malnourishment and low oral intake. Current plan is to continue to monitor patient and if more stable proceed with surgery at that time. Tentatively on schedule for February 02. Subjective Subjective Date/Time Seen: 01/28/22 10:47 Interval history: Left ankle fracture. Patient awake , no complaints at rest. Oriented to self and place. No new concerns. knows he is in hospital but not name of Hospital. Exam Const: General: No confusion Orientation/consciousness: No confusion HENMT: Head: normal to inspection, normocephalic and atraumatic Neck: Neck: supple and nontender Chest: Chest palpation & inspection: normal inspection of the chest Resp: Effort & Inspection: normal respiratory effort and no audible wheezes Cardio: Rate: regular rate : General: Yes deferred Skin: General skin exam: no rashes or lesions noted Neuro: General: No confusion Cranial nerves: Yes Normal hearing present Extrem: General: capillary refill normal Right upper extremity: normal to inspection Left upper extremity: normal to inspection Right lower extremity: normal to inspection and hip/thigh Details: normal to inspection Left lower extremity: hip/thigh Details: normal to inspection, knee Details: normal to inspection and knee ligament exam normal Details: anterior drawer test normal, valgus stress test normal, varus stress test normal and Chuy's test normal, ankle (no calf tenderness) Details: abnormal to inspection ( Obvious swelling at the ankle joint), tenderness ( lateral malleolus), swelling (moderate lateral ankle), abnormal ROM Details: pain with active ROM Details: with plantar flexion and with dorsiflexion and with range as follows ( limited secondary to injury), crepitus Details: at the lateral malleolus and other ( good capillary refill in toes, 2+ DP pulse) and foot Details: normal capillary refill, toes with normal ROM, vascular exam Details: dorsalis pedis pulse present and motor-sensory exam Psych: Affect: normal affect Objective Data Vital Signs Vital Signs: Vital Signs - 24 hr 01/27/22 13:54 01/27/22 22:00 01/27/22 20:00 Temperature 96.7 F L 97.1 F L Pulse Rate 63 70 Respiratory Rate 18 16 Blood Pressure 112/51 L 135/77 Pulse Oximetry 95 93 Oxygen Delivery Room Air 01/28/22 06:00 Temperature 96.9 F L Pulse Rate 82 Respiratory Rate 16 Blood Pressure 152/95 H Pulse Oximetry 93 Oxygen Delivery Intake/Output Intake/Output: Intake & Output 01/25/22 01/26/22 01/27/22 01/28/22 23:59 23:59 23:59 23:59 Intake Total 1620.2 150 1222 740 Output Total 475 300 700 500 Balance 1145.2 -150 522 240 Meds/Results Medications: Active Medications Generic Name Dose Route Start Last Admin Trade Name Freq PRN Reason Stop Dose Admin Amlodipine Besylate 5 mg 01/26/22 09:00 01/28/22 08:39 Amlodipine Besylate 5 Mg Tablet PO 5 mg DAILY HERMINIO Administration Aspirin 81 mg 01/26/22 09:00 01/28/22 08:39 Aspir
--- NOTE | 2022-01-28 12:36 | PM.IMPN ---
Progress Note: A&P Assessment and Plan (1) Bimalleolar ankle fracture: Qualifiers: Encounter type: initial encounter Fracture type: closed Laterality: left Qualified Code(s): S82.842A - Displaced bimalleolar fracture of left lower leg, initial encounter for closed fracture Code(s): S82.843A - Displaced bimalleolar fracture of unspecified lower leg, initial encounter for closed fracture Status: Acute Assessment and Plan: Orthopedic surgery has been consult and appreciate further recommendations. Patient does have a splint on at this time and states he is not having any pain. patient is okay to proceed with surgery from medical standpoint. Spoke with family and this is the patient's baseline functional capacity in mental status. (2) Alcohol abuse: Code(s): F10.10 - Alcohol abuse, uncomplicated Status: Acute Assessment and Plan: Will place patient on CIWA protocol with p.r.n. Ativan IV. Received 1 dose last night for confusion. . I think this is baseline I do not think this is related alcohol withdrawal. I will decrease his Librium and Dc his lorazepam. (3) Benign essential HTN: Code(s): I10 - Essential (primary) hypertension Status: Acute Assessment and Plan: Continue current regimen Subjective Date/time seen: 01/28/22 12:36 No acute issues. One dose of Ativan given Overnite for confusion. To the nurse spoke with the patient's family and he is apparently confused at baseline. This appears to be his baseline Exam Narrative: Constitutional: Patient is well-nourished in no acute distress. Patient is alert and oriented x2 HEENT: Moist mucous membranes. No scleral icterus. No lymphadenopathy. Neck: No carotid bruits noted no JVD noted Lungs: Lung sounds are clear to auscultation bilaterally. No accessory muscle use. No rhonchi, rales, or wheezes noted. Cardiovascular: Apical pulse is regular rate and rhythm. S1-S2 noted, no S3 or S4 noted. No gallops, murmurs, or rubs noted. Abdomen: Soft, round, and nontender. No palpable masses. Extremities: Patient has a splint noted to left lower extremity. Patient's cap refills less than 2 seconds. Patient is able to move toes without any difficulty. Skin: No rashes or lesions. Warm and dry. Skin is intact. Neurological: No focal neurological deficits. Cranial nerves II-XII grossly intact. Psychiatric: Cooperative, appropriate mood, and affect Objective Data Vital Signs Vital Signs: Vital Signs - 24 hr 01/27/22 13:54 01/27/22 22:00 01/27/22 20:00 Temperature 96.7 F L 97.1 F L Pulse Rate 63 70 Respiratory Rate 18 16 Blood Pressure 112/51 L 135/77 Pulse Oximetry 95 93 Oxygen Delivery Room Air 01/28/22 06:00 Temperature 96.9 F L Pulse Rate 82 Respiratory Rate 16 Blood Pressure 152/95 H Pulse Oximetry 93 Oxygen Delivery Intake/Output Intake/Output: Intake & Output 01/25/22 01/26/22 01/27/22 01/28/22 23:59 23:59 23:59 23:59 Intake Total 1620.2 150 1222 740 Output Total 475 300 700 500 Balance 1145.2 -150 522 240 Meds/Results Medications: Active Medications Generic Name Dose Route Start Last Admin Trade Name Freq PRN Reason Stop Dose Admin Amlodipine Besylate 5 mg 01/26/22 09:00 01/28/22 08:39 Amlodipine Besylate 5 Mg Tablet PO 5 mg DAILY HERMINIO Administration Aspirin 81 mg 01/26/22 09:00 01/28/22 08:39 Aspirin 81 Mg Enteric Tablet PO 81 mg DAILY HERMINIO Administration Atorvastatin Calcium 10 mg 01/26/22 09:00 01/28/22 08:39 Atorvastatin 10 Mg Tablet PO 10 mg DAILY HERMINIO Administration Buspirone HCl 10 mg 01/25/22 17:00 01/28/22 08:40 Buspirone Hcl 10 Mg Tablet PO 10 mg BID HERMINIO Administration Chlordiazepoxide HCl 25 mg 01/24/22 22:00 01/28/22 05:54 Chlordiazepoxide (*Crx) 25 Mg Capsule PO 25 mg Q8HR HERMINIO Administration Donepezil HCl 5 mg 01/26/22 09:00 01/28/22 08:39 Donepezil Hcl 5 Mg Tablet PO 5 mg DA
[2022-01-28 14:00] VITALS: BP 117/53; PULSE 77; RESP 16; TEMP 35.9; O2SAT 98
[2022-01-28] MEDS: LATANOPROST 0.005% OP SOLN 2.5 ML BTL 1 DROP EACH EYE (20:07)
[2022-01-28 22:00] VITALS: BP 113/69; PULSE 78; RESP 16; TEMP 36.2; O2SAT 96
[2022-01-29 05:47] LABS: Anion Gap 7 mmol/L (8-16); Blood Urea Nitrogen 11 mg/dL (9-20); Calcium 8.3 mg/dL (8.4-10.2); Carbon Dioxide 25 mmol/L (22-30); Chloride 98 mmol/L (98-107); Estimated CRCL calculation 74 ml/min; Estimated Glomerular Filt Rate > 60; Glucose 98 mg/dL (65-110); Potassium 3.2 mmol/L (3.4-5.0); Sodium 130 mmol/L (137-145)
[2022-01-29 06:00] VITALS: BP 122/84; PULSE 77; RESP 16; TEMP 36.2; O2SAT 95
[2022-01-29] MEDS: busPIRone HCL 10 MG TABLET PO ×2 (08:44→17:28)
[2022-01-29] MEDS: DONEPEZIL HCL 5 MG TABLET PO (08:44)
[2022-01-29] MEDS: SERTRALINE HCL 50 MG TABLET 150 MG PO (08:44)
[2022-01-29] MEDS: hydroCHLOROthiazide 12.5 MG CAPSULE PO (08:44)
[2022-01-29] MEDS: chlordiazePOXIDE (*CRX) 25 MG CAPSULE PO ×2 (08:44→20:03)
[2022-01-29] MEDS: lisinopriL 20 MG TABLET PO (08:44)
[2022-01-29] MEDS: amLODIPine BESYLATE 5 MG TABLET PO (08:45)
[2022-01-29] MEDS: TIMOLOL MALEATE 0.5% OP SOLN 5 ML BOTTLE 1 DROP EACH EYE (08:45)
[2022-01-29] MEDS: ATORVASTATIN 10 MG TABLET PO (08:45)
[2022-01-29] MEDS: ASPIRIN 81 MG ENTERIC TABLET PO (08:45)
[2022-01-29] MEDS: POTASSIUM CHLORIDE 20 MEQ PACKET (FOR LIQUID) 40 MEQ PO (08:47)
--- NOTE | 2022-01-29 11:04 | PM.IMPN ---
Progress Note: A&P Assessment and Plan (1) Bimalleolar ankle fracture: Qualifiers: Encounter type: initial encounter Fracture type: closed Laterality: left Qualified Code(s): S82.842A - Displaced bimalleolar fracture of left lower leg, initial encounter for closed fracture Code(s): S82.843A - Displaced bimalleolar fracture of unspecified lower leg, initial encounter for closed fracture Status: Acute Assessment and Plan: Orthopedic surgery has been consult and appreciate further recommendations. Patient does have a splint on at this time and states he is not having any pain. patient is okay to proceed with surgery from medical standpoint. Spoke with family and this is the patient's baseline functional capacity in mental status. Tentative plan for surgery for the 7th. (2) Alcohol abuse: Code(s): F10.10 - Alcohol abuse, uncomplicated Status: Acute Assessment and Plan: Monitor. (3) Benign essential HTN: Code(s): I10 - Essential (primary) hypertension Status: Acute Assessment and Plan: Continue current regimen Subjective Date/time seen: 01/29/22 11:04 No new complaints. Patient is pleasantly confused Exam Narrative: Constitutional: Patient is well-nourished in no acute distress. Patient is alert and oriented x2 HEENT: Moist mucous membranes. No scleral icterus. No lymphadenopathy. Neck: No carotid bruits noted no JVD noted Lungs: Lung sounds are clear to auscultation bilaterally. No accessory muscle use. No rhonchi, rales, or wheezes noted. Cardiovascular: Apical pulse is regular rate and rhythm. S1-S2 noted, no S3 or S4 noted. No gallops, murmurs, or rubs noted. Abdomen: Soft, round, and nontender. No palpable masses. Extremities: Patient has a splint noted to left lower extremity. Patient's cap refills less than 2 seconds. Patient is able to move toes without any difficulty. Skin: No rashes or lesions. Warm and dry. Skin is intact. Neurological: No focal neurological deficits. Cranial nerves II-XII grossly intact. Psychiatric: Cooperative, appropriate mood, and affect Objective Data Vital Signs Vital Signs: Vital Signs - 24 hr 01/28/22 14:00 01/28/22 22:00 01/28/22 20:00 Temperature 96.7 F L 97.1 F L Pulse Rate 77 78 Respiratory Rate 16 16 Blood Pressure 117/53 L 113/69 Pulse Oximetry 98 96 Oxygen Delivery Room Air 01/29/22 06:00 01/29/22 08:45 Temperature 97.2 F L Pulse Rate 77 Respiratory Rate 16 Blood Pressure 122/84 Pulse Oximetry 95 Oxygen Delivery Room Air Intake/Output Intake/Output: Intake & Output 01/26/22 01/27/22 01/28/22 01/29/22 23:59 23:59 23:59 23:59 Intake Total 150 1222 1562 980 Output Total 300 700 500 600 Balance -328 723 1825 380 Meds/Results Medications: Active Medications Generic Name Dose Route Start Last Admin Trade Name Freq PRN Reason Stop Dose Admin Amlodipine Besylate 5 mg 01/26/22 09:00 01/29/22 08:45 Amlodipine Besylate 5 Mg Tablet PO 5 mg DAILY HERMINIO Administration Aspirin 81 mg 01/26/22 09:00 01/29/22 08:45 Aspirin 81 Mg Enteric Tablet PO 81 mg DAILY HERMINIO Administration Atorvastatin Calcium 10 mg 01/26/22 09:00 01/29/22 08:45 Atorvastatin 10 Mg Tablet PO 10 mg DAILY HERMINIO Administration Buspirone HCl 10 mg 01/25/22 17:00 01/29/22 08:44 Buspirone Hcl 10 Mg Tablet PO 10 mg BID HERMINIO Administration Chlordiazepoxide HCl 25 mg 01/28/22 21:00 01/29/22 08:44 Chlordiazepoxide (*Crx) 25 Mg Capsule PO 25 mg Q12HR HERMINIO Administration Donepezil HCl 5 mg 01/26/22 09:00 01/29/22 08:44 Donepezil Hcl 5 Mg Tablet PO 5 mg DAILY HERMINIO Administration Hydrochlorothiazide 12.5 mg 01/26/22 09:00 01/29/22 08:44 Hydrochlorothiazide 12.5 Mg Capsule PO 02/25/22 08:59 12.5 mg DAILY HERMINIO Administration Latanoprost 1 drop 01/25/22 21:00 01/28/22 20:07 Latanoprost 0.005% Op Soln 2.5 Ml Btl EACH EYE 1
[2022-01-29 14:00] VITALS: BP 151/90; PULSE 78; RESP 20; TEMP 36.1; O2SAT 96
[2022-01-29 14:33] VITALS: O2SAT 95
[2022-01-29] MEDS: LATANOPROST 0.005% OP SOLN 2.5 ML BTL 1 DROP EACH EYE (20:05)
[2022-01-30 01:47] VITALS: BP 135/85; PULSE 77; RESP 18; TEMP 36.1; O2SAT 94
[2022-01-30 06:33] VITALS: BP 125/79; PULSE 75; RESP 18; TEMP 36.4; O2SAT 92
[2022-01-30 07:49] LABS: Glucose Point of Care 105 mg/dl (65-105)
[2022-01-30] MEDS: ASPIRIN 81 MG ENTERIC TABLET PO (09:10)
[2022-01-30] MEDS: hydroCHLOROthiazide 12.5 MG CAPSULE PO (09:10)
[2022-01-30] MEDS: DONEPEZIL HCL 5 MG TABLET PO (09:10)
[2022-01-30] MEDS: SERTRALINE HCL 50 MG TABLET 150 MG PO (09:10)
[2022-01-30] MEDS: amLODIPine BESYLATE 5 MG TABLET PO (09:11)
[2022-01-30] MEDS: busPIRone HCL 10 MG TABLET PO ×2 (09:11→16:39)
[2022-01-30] MEDS: lisinopriL 20 MG TABLET PO (09:11)
[2022-01-30] MEDS: ENOXAPARIN 40 MG/0.4 ML SYRINGE SUB-Q (09:11)
[2022-01-30] MEDS: TIMOLOL MALEATE 0.5% OP SOLN 5 ML BOTTLE 1 DROP EACH EYE (09:11)
[2022-01-30] MEDS: ATORVASTATIN 10 MG TABLET PO (09:11)
[2022-01-30 11:14] LABS: Glucose Point of Care 111 mg/dl (65-105)
--- NOTE | 2022-01-30 13:10 | PM.IMPN ---
Progress Note: A&P Assessment and Plan (1) Bimalleolar ankle fracture: Qualifiers: Encounter type: initial encounter Fracture type: closed Laterality: left Qualified Code(s): S82.842A - Displaced bimalleolar fracture of left lower leg, initial encounter for closed fracture Code(s): S82.843A - Displaced bimalleolar fracture of unspecified lower leg, initial encounter for closed fracture Status: Acute Assessment and Plan: Orthopedic surgery has been consult and appreciate further recommendations. Patient does have a splint on at this time and states he is not having any pain. patient is okay to proceed with surgery from medical standpoint. Spoke with family and this is the patient's baseline functional capacity in mental status. Tentative plan for surgery for the 7th. (2) Alcohol abuse: Code(s): F10.10 - Alcohol abuse, uncomplicated Status: Acute Assessment and Plan: Monitor. (3) Benign essential HTN: Code(s): I10 - Essential (primary) hypertension Status: Acute Assessment and Plan: Continue current regimen Subjective Date/time seen: 01/30/22 13:10 No new complaints. Exam Narrative: Constitutional: Patient is well-nourished in no acute distress. Patient is alert and oriented x2 HEENT: Moist mucous membranes. No scleral icterus. No lymphadenopathy. Neck: No carotid bruits noted no JVD noted Lungs: Lung sounds are clear to auscultation bilaterally. No accessory muscle use. No rhonchi, rales, or wheezes noted. Cardiovascular: Apical pulse is regular rate and rhythm. S1-S2 noted, no S3 or S4 noted. No gallops, murmurs, or rubs noted. Abdomen: Soft, round, and nontender. No palpable masses. Extremities: Patient has a splint noted to left lower extremity. Patient's cap refills less than 2 seconds. Patient is able to move toes without any difficulty. Skin: No rashes or lesions. Warm and dry. Skin is intact. Neurological: No focal neurological deficits. Cranial nerves II-XII grossly intact. Psychiatric: Cooperative, appropriate mood, and affect Objective Data Vital Signs Vital Signs: Vital Signs - 24 hr 01/29/22 14:00 01/29/22 14:33 01/30/22 01:47 Temperature 96.9 F L 97 F L Pulse Rate 78 77 Respiratory Rate 20 18 Blood Pressure 151/90 H 135/85 Pulse Oximetry 96 95 94 Oxygen Delivery Room Air 01/30/22 06:33 Temperature 97.6 F Pulse Rate 75 Respiratory Rate 18 Blood Pressure 125/79 Pulse Oximetry 92 Oxygen Delivery Intake/Output Intake/Output: Intake & Output 01/27/22 01/28/22 01/29/22 01/30/22 23:59 23:59 23:59 23:59 Intake Total 1222 1562 1450 50 Output Total 322 542 6487 500 Balance 522 1062 350 -450 Meds/Results Medications: Active Medications Generic Name Dose Route Start Last Admin Trade Name Freq PRN Reason Stop Dose Admin Amlodipine Besylate 5 mg 01/26/22 09:00 01/30/22 09:11 Amlodipine Besylate 5 Mg Tablet PO 5 mg DAILY HERMINIO Administration Aspirin 81 mg 01/26/22 09:00 01/30/22 09:10 Aspirin 81 Mg Enteric Tablet PO 81 mg DAILY HERMINIO Administration Atorvastatin Calcium 10 mg 01/26/22 09:00 01/30/22 09:11 Atorvastatin 10 Mg Tablet PO 10 mg DAILY HERMINIO Administration Buspirone HCl 10 mg 01/25/22 17:00 01/30/22 09:11 Buspirone Hcl 10 Mg Tablet PO 10 mg BID HERMINIO Administration Donepezil HCl 5 mg 01/26/22 09:00 01/30/22 09:10 Donepezil Hcl 5 Mg Tablet PO 5 mg DAILY HERMINIO Administration Enoxaparin Sodium 40 mg 01/30/22 09:00 01/30/22 09:11 Enoxaparin 40 Mg/0.4 Ml Syringe SUB-Q 40 mg DAILY HERMINIO Administration Hydrochlorothiazide 12.5 mg 01/26/22 09:00 01/30/22 09:10 Hydrochlorothiazide 12.5 Mg Capsule PO 02/25/22 08:59 12.5 mg DAILY HERMINIO Administration Latanoprost 1 drop 01/25/22 21:00 01/29/22 20:05 Latanoprost 0.005% Op Soln 2.5 Ml Btl EACH EYE 1 drop HS HERMINIO Administration Lisinopril 20 mg 01/26/22 09:00
[2022-01-30 16:11] LABS: Glucose Point of Care 127 mg/dl (65-105)
[2022-01-30] MEDS: chlordiazePOXIDE (*CRX) 25 MG CAPSULE PO (16:39)
[2022-01-30 17:00] VITALS: BP 122/64; PULSE 76; RESP 18; TEMP 36.6; O2SAT 94
[2022-01-30] MEDS: LATANOPROST 0.005% OP SOLN 2.5 ML BTL 1 DROP EACH EYE (21:21)
[2022-01-31 01:00] VITALS: BP 133/83; PULSE 87; RESP 16; TEMP 36.7; O2SAT 96
[2022-01-31 07:39] LABS: Hematocrit 41.3 % (42.0-52.0); Hemoglobin 14.8 g/dL (14.0-18.0); Mean Corpuscular HGB Conc 35.8 g/dl (32-36); Mean Corpuscular Hemoglobin 34.4 pg (26-34); Mean Platelet Volume 10.8 fl (7.4-10.4); Platelet Count Result 304 k/mm3 (150-375); Red Cell Distribution Width 12.5 % (11.5-14.5); White Blood Count 8.9 K/mm3 (4.5-10.0)
[2022-01-31 07:45] LABS: Glucose Point of Care 112 mg/dl (65-105)
[2022-01-31 08:22] VITALS: BP 117/68; PULSE 76; RESP 16; TEMP 36.8; O2SAT 97
[2022-01-31 09:02] LABS: Anion Gap 7 mmol/L (8-16); Blood Urea Nitrogen 12 mg/dL (9-20); Calcium 8.5 mg/dL (8.4-10.2); Carbon Dioxide 26 mmol/L (22-30); Chloride 98 mmol/L (98-107); Estimated CRCL calculation 74 ml/min; Estimated Glomerular Filt Rate > 60; Glucose 102 mg/dL (65-110); Potassium 3.3 mmol/L (3.4-5.0); Sodium 131 mmol/L (137-145)
--- NOTE | 2022-01-31 09:26 | PM.PNORT ---
Progress Note: A&P Assessment and Plan (1) Bimalleolar ankle fracture: Qualifiers: Encounter type: initial encounter Fracture type: closed Laterality: left Qualified Code(s): S82.842A - Displaced bimalleolar fracture of left lower leg, initial encounter for closed fracture Code(s): S82.843A - Displaced bimalleolar fracture of unspecified lower leg, initial encounter for closed fracture Status: Acute Assessment and Plan: Pain continues to be well controlled, patient requiring reorientation regarding broken ankle today. Discussed operative and non operative treatment for his left ankle fracture. Patient now showing signs of improvement in mentation, still with some concern regarding ability to follow postoperative rehab and protocols. Plan for surgery on 02/02 with ORIF of the left ankle. Continue conservative care in the interim. Continue NWB LLE. Pain control. Elevate heel. Ice. Subjective Subjective Date/Time Seen: 01/31/22 09:26 Interval history: Patient alert and oriented today to place/time today. Improvement in mentation overall but mildly confused about reason for hospitalization and situation. Unaware that his ankle was fractured. No other concerns. Review of Systems Review of Systems: All systems reviewed & are unremarkable except as noted in HPI and below Exam Const: General: No confusion Orientation/consciousness: No confusion HENMT: Head: normal to inspection, normocephalic and atraumatic Neck: Neck: supple and nontender Chest: Chest palpation & inspection: normal inspection of the chest Resp: Effort & Inspection: normal respiratory effort and no audible wheezes Cardio: Rate: regular rate : General: Yes deferred Skin: General skin exam: no rashes or lesions noted Neuro: General: No confusion Cranial nerves: Yes Normal hearing present Extrem: General: capillary refill normal Right upper extremity: normal to inspection Left upper extremity: normal to inspection Right lower extremity: normal to inspection and hip/thigh Details: normal to inspection Left lower extremity: hip/thigh Details: normal to inspection, knee Details: normal to inspection and knee ligament exam normal Details: anterior drawer test normal, valgus stress test normal, varus stress test normal and Chuy's test normal, ankle (no calf tenderness) Details: abnormal to inspection ( Obvious swelling at the ankle joint), tenderness ( lateral malleolus), swelling (moderate lateral ankle), abnormal ROM Details: pain with active ROM Details: with plantar flexion and with dorsiflexion and with range as follows ( limited secondary to injury), crepitus Details: at the lateral malleolus and other ( good capillary refill in toes, 2+ DP pulse) and foot Details: normal capillary refill, toes with normal ROM, vascular exam Details: dorsalis pedis pulse present and motor-sensory exam Psych: Affect: normal affect Objective Data Vital Signs Vital Signs: Vital Signs - 24 hr 01/30/22 17:00 01/30/22 20:00 01/31/22 01:00 Temperature 36.6 C 36.7 C Pulse Rate 76 87 Respiratory Rate 18 16 Blood Pressure 122/64 133/83 Pulse Oximetry 94 96 Oxygen Delivery Room Air 01/31/22 08:22 Temperature 36.8 C Pulse Rate 76 Respiratory Rate 16 Blood Pressure 117/68 Pulse Oximetry 97 Oxygen Delivery Intake/Output Intake/Output: Intake & Output 01/28/22 01/29/22 01/30/22 01/31/22 23:59 23:59 23:59 23:59 Intake Total 1562 1450 894 Output Total 500 1100 500 Balance 1062 350 394 Meds/Results Medications: Active Medications Generic Name Dose Route Start Last Admin Trade Name Freq PRN Reason Stop Dose Admin Amlodipine Besylate 5 mg 01/26/22 09:00 01/30/22 09:11 Amlodipine Besylate 5 Mg Tablet PO 5 mg DAILY HERMINIO Administration Aspirin 81 mg 01/26/22 09:00 01/30/22 09:10 Aspirin 81 Mg Enteric Tablet PO 81 mg DAILY HERMINIO Administration Atorvastatin Calcium
[2022-01-31] MEDS: SERTRALINE HCL 50 MG TABLET 150 MG PO (09:39)
[2022-01-31] MEDS: lisinopriL 20 MG TABLET PO (09:39)
[2022-01-31] MEDS: ATORVASTATIN 10 MG TABLET PO (09:39)
[2022-01-31] MEDS: busPIRone HCL 10 MG TABLET PO ×2 (09:39→17:16)
[2022-01-31] MEDS: ASPIRIN 81 MG ENTERIC TABLET PO (09:40)
[2022-01-31] MEDS: ENOXAPARIN 40 MG/0.4 ML SYRINGE SUB-Q (09:40)
[2022-01-31] MEDS: DONEPEZIL HCL 5 MG TABLET PO (09:40)
[2022-01-31] MEDS: amLODIPine BESYLATE 5 MG TABLET PO (09:40)
[2022-01-31] MEDS: hydroCHLOROthiazide 12.5 MG CAPSULE PO (09:40)
[2022-01-31] MEDS: chlordiazePOXIDE (*CRX) 25 MG CAPSULE PO ×2 (09:41→19:57)
[2022-01-31] MEDS: TIMOLOL MALEATE 0.5% OP SOLN 5 ML BOTTLE 1 DROP EACH EYE (09:45)
[2022-01-31 11:20] LABS: Glucose Point of Care 201 mg/dl (65-105)
--- NOTE | 2022-01-31 12:38 | PM.IMPN ---
Progress Note: A&P Assessment and Plan (1) Bimalleolar ankle fracture: Qualifiers: Encounter type: initial encounter Fracture type: closed Laterality: left Qualified Code(s): S82.842A - Displaced bimalleolar fracture of left lower leg, initial encounter for closed fracture Code(s): S82.843A - Displaced bimalleolar fracture of unspecified lower leg, initial encounter for closed fracture Status: Acute Assessment and Plan: Orthopedic surgery has been consult and appreciate further recommendations. Patient does have a splint on at this time and states he is not having any pain. patient is okay to proceed with surgery from medical standpoint. Spoke with family and this is the patient's baseline functional capacity in mental status. Tentative plan for surgery for the 7th. (2) Alcohol abuse: Code(s): F10.10 - Alcohol abuse, uncomplicated Status: Acute Assessment and Plan: Monitor. (3) Benign essential HTN: Code(s): I10 - Essential (primary) hypertension Status: Acute Assessment and Plan: Continue current regimen Subjective Date/time seen: 01/31/22 12:38 No new complaints Exam Narrative: Constitutional: Patient is well-nourished in no acute distress. Patient is alert and oriented x2 HEENT: Moist mucous membranes. No scleral icterus. No lymphadenopathy. Neck: No carotid bruits noted no JVD noted Lungs: Lung sounds are clear to auscultation bilaterally. No accessory muscle use. No rhonchi, rales, or wheezes noted. Cardiovascular: Apical pulse is regular rate and rhythm. S1-S2 noted, no S3 or S4 noted. No gallops, murmurs, or rubs noted. Abdomen: Soft, round, and nontender. No palpable masses. Extremities: Patient has a splint noted to left lower extremity. Patient's cap refills less than 2 seconds. Patient is able to move toes without any difficulty. Skin: No rashes or lesions. Warm and dry. Skin is intact. Neurological: No focal neurological deficits. Cranial nerves II-XII grossly intact. Psychiatric: Cooperative, appropriate mood, and affect Objective Data Vital Signs Vital Signs: Vital Signs - 24 hr 01/30/22 17:00 01/30/22 20:00 01/31/22 01:00 Temperature 98 F 98.1 F Pulse Rate 76 87 Respiratory Rate 18 16 Blood Pressure 122/64 133/83 Pulse Oximetry 94 96 Oxygen Delivery Room Air 01/31/22 08:22 Temperature 98.2 F Pulse Rate 76 Respiratory Rate 16 Blood Pressure 117/68 Pulse Oximetry 97 Oxygen Delivery Intake/Output Intake/Output: Intake & Output 01/28/22 01/29/22 01/30/22 01/31/22 23:59 23:59 23:59 23:59 Intake Total 1562 1450 894 240 Output Total 500 1100 500 Balance 1062 350 394 240 Meds/Results Medications: Active Medications Generic Name Dose Route Start Last Admin Trade Name Raven PRN Reason Stop Dose Admin Amlodipine Besylate 5 mg 01/26/22 09:00 01/31/22 09:40 Amlodipine Besylate 5 Mg Tablet PO 5 mg DAILY HERMINIO Administration Aspirin 81 mg 01/26/22 09:00 01/31/22 09:40 Aspirin 81 Mg Enteric Tablet PO 81 mg DAILY HERMINIO Administration Atorvastatin Calcium 10 mg 01/26/22 09:00 01/31/22 09:39 Atorvastatin 10 Mg Tablet PO 10 mg DAILY HERMINIO Administration Buspirone HCl 10 mg 01/25/22 17:00 01/31/22 09:39 Buspirone Hcl 10 Mg Tablet PO 10 mg BID HERMINIO Administration Chlordiazepoxide HCl 25 mg 01/30/22 16:25 01/31/22 09:41 Chlordiazepoxide (*Crx) 25 Mg Capsule PO 25 mg Q12HR HERMINIO Administration Donepezil HCl 5 mg 01/26/22 09:00 01/31/22 09:40 Donepezil Hcl 5 Mg Tablet PO 5 mg DAILY HERMINIO Administration Enoxaparin Sodium 40 mg 01/30/22 09:00 01/31/22 09:40 Enoxaparin 40 Mg/0.4 Ml Syringe SUB-Q 40 mg DAILY HERMINIO Administration Hydrochlorothiazide 12.5 mg 01/26/22 09:00 01/31/22 09:40 Hydrochlorothiazide 12.5 Mg Capsule PO 02/25/22 08:59 12.5 mg DAILY HERMINIO Administration Latanoprost 1 drop 01/25/22 21:00 01/30/22 2
--- NOTE | 2022-01-31 13:02 | PCNWS ---
Weekly nutritional screen. Patient is tolerating current diabetic consistent carbohydrate diet. His intakes are improving and he is drinking his Ensure Enlive TID: 350 kcals, 20 grams protein per shake. Weight is stable. No nutritional needs at this time.
--- NOTE | 2022-01-31 13:15 | PCOTNOTE ---
Attempted to see patient this am, however patient refused. Upon entering room, patient set off bed alarm sitting up between bed rails. Pt refused activity, however requested to sit edge of bed a few minutes. Assisted patient to call and sit edge of bed approximately 10 minutes, then returned to bed.
--- NOTE | 2022-01-31 13:15 | PCNSR ---
On 01/31/22, the student, Yumiko Pretty, provided care and completed [facility] documentation on this patient. I have reviewed the student's documentation and agree with the findings.
[2022-01-31] MEDS: POTASSIUM CHLORIDE 20 MEQ PACKET (FOR LIQUID) 40 MEQ PO (15:41)
[2022-01-31] MEDS: LATANOPROST 0.005% OP SOLN 2.5 ML BTL 1 DROP EACH EYE (19:57)
[2022-01-31 22:07] VITALS: BP 125/82; PULSE 93; RESP 18; TEMP 37.2; O2SAT 94
[2022-02-01 06:00] VITALS: BP 117/82; PULSE 84; RESP 20; TEMP 36.8; O2SAT 94
[2022-02-01] MEDS: ENOXAPARIN 40 MG/0.4 ML SYRINGE SUB-Q (09:09)
[2022-02-01] MEDS: SERTRALINE HCL 50 MG TABLET 150 MG PO (09:09)
[2022-02-01] MEDS: amLODIPine BESYLATE 5 MG TABLET PO (09:09)
[2022-02-01] MEDS: busPIRone HCL 10 MG TABLET PO ×2 (09:09→17:03)
[2022-02-01] MEDS: hydroCHLOROthiazide 12.5 MG CAPSULE PO (09:09)
[2022-02-01] MEDS: ASPIRIN 81 MG ENTERIC TABLET PO (09:09)
[2022-02-01] MEDS: TIMOLOL MALEATE 0.5% OP SOLN 5 ML BOTTLE 1 DROP EACH EYE (09:09)
[2022-02-01] MEDS: ATORVASTATIN 10 MG TABLET PO (09:09)
[2022-02-01] MEDS: lisinopriL 20 MG TABLET PO (09:10)
[2022-02-01] MEDS: DONEPEZIL HCL 5 MG TABLET PO (09:10)
[2022-02-01] MEDS: chlordiazePOXIDE (*CRX) 25 MG CAPSULE PO ×2 (09:12→20:04)
--- NOTE | 2022-02-01 13:06 | WPDANESEPPF ---
Anes - Initial Pre Proc Eval Procedure: Operation Date: 02/02/22 07:30 Proposed Procedures p Open Reduction Internal Fixation Left Ankle - Spenser Hendrix MD Date/Time: 02/01/22 13:06 Surgeon: Thelma Donovan DO Pre Op Diagnosis: bimalleolar left ankle fx,etoh withdrawal/abuse Patient Data Age: 76 Gender: M Height: 1.8 m Weight: 88.6 kg Last Vital Signs Temp 36.8 C 02/01/22 06:00 Pulse 84 02/01/22 06:00 Resp 20 02/01/22 06:00 BP 117/82 02/01/22 06:00 Pulse Ox 94 02/01/22 06:00 O2 Del Method Room Air 01/31/22 20:00 Allergies Allergy/AdvReac Type Severity Reaction Status Date / Time house dust Allergy Unknown sneezing Verified 01/27/22 12:56 Home Medications Medication Instructions Recorded Confirmed Type aspirin 81 mg tablet,delayed 81 mg PO DAILY 09/17/19 01/24/22 History release (Adult Low Dose Aspirin) latanoprost 0.005 % eye drops 1 drop ophthalmic (eye) DAILY 09/17/19 01/24/22 History donepezil 10 mg tablet 5 mg PO ONCE 09/01/20 01/24/22 History amlodipine 5 mg tablet 5 mg PO DAILY 01/24/22 01/24/22 History atorvastatin 10 mg tablet 10 mg PO DAILY 01/24/22 01/24/22 History buspirone 10 mg tablet 10 mg PO BID 01/24/22 01/24/22 History lisinopril 20 1 tablet PO DAILY 01/24/22 01/24/22 History mg-hydrochlorothiazide 12.5 mg tablet metformin 500 mg tablet 500 mg PO BID 01/24/22 01/24/22 History quetiapine 25 mg tablet 25 mg PO BID 01/24/22 01/24/22 History sertraline 100 mg tablet 150 mg PO DAILY 01/24/22 01/24/22 History timolol maleate 0.5 % eye drops 1 drop ophthalmic (eye) QAM 01/24/22 01/24/22 History Patient hx anesthesia problems: none Family hx anesthesia problems: none Results Review: All pre-operative results and documents have been reviewed as part of the pre-operative evaluation. [facility] Past Medical History Medical History (Updated 02/01/22 @ 13:08 by Junior Marie MD) Alcohol abuse Alzheimer disease Benign essential HTN Cirrhosis Clawtoe, acquired Dementia Diabetes Hallux valgus (acquired), right foot Hammertoe of right foot Hyperlipidemia Seizure Family History Family History Father Family history of chronic obstructive pulmonary disease Patient's father is , Onset Age: 82 Diabetes mellitus Family history of hypercholesterolemia Family history of cardiovascular disease Family history of congestive heart failure Mother Family history of dementia Patient's mother is , Onset Age: 82 Diabetes mellitus Family history of hypercholesterolemia Family history of Alzheimer's disease Other Family history of arthritis Social History Social History Smoking packs per day: 2 Smoking cigarettes per day: 40.0 Years smoked: 20 Smoking pack-years: 40.00 Smoking status: Former smoker Tobacco type: cigarettes Second hand tobacco smoke exposure: Yes Smoking end date: 01/25/80 Alcohol intake: never Drinks per week: 6 Alcohol use details: Patient is drinking at least a 12 pack of beer daily. Substance use: never Substance use type: does not use Gender identity (if verbalized by the patient): Male Spiritual care concerns: No Anes - Eval Final PreProcedure Day of Procedure 02/01/22 13:06 Patient weight: overweight Heart: regular rate and rhythm Lungs: clear to auscultation and normal air movement Airway: Mallampati scale class II Neurological: alert and oriented Last oral intake: >/= 8 hours ASA classification: IV Emergent: no Anesthetic plan: proceed Anesthesia type and monitoring: general LMA Results Review: All pre-operative results and documents have been reviewed as part of the pre-operative evaluation. Informed Consent: The patient's anesthetic plan and its attendant risks and benefits were discussed with the patient/family/POA. Questions were solicited and
[2022-02-01 14:00] VITALS: BP 114/70; PULSE 84; RESP 20; TEMP 36.8; O2SAT 94
--- NOTE | 2022-02-01 16:38 | PM.PNORT ---
Progress Note: A&P Assessment and Plan (1) Bimalleolar ankle fracture: Qualifiers: Encounter type: initial encounter Fracture type: closed Laterality: left Qualified Code(s): S82.842A - Displaced bimalleolar fracture of left lower leg, initial encounter for closed fracture Code(s): S82.843A - Displaced bimalleolar fracture of unspecified lower leg, initial encounter for closed fracture Status: Acute Assessment and Plan: Pain continues to be well controlled. Discussed operative and non operative treatment for his left ankle fracture. Patient now showing signs of improvement in mentation, still with some concern regarding ability to follow postoperative rehab and protocols. Time allowed for edema control and improvement in swelling. Questions answered. Patient would like to proceed with operative treatment. Discussed nonoperative and operative treatment options with the patient. Risks and benefits of each as well as alternatives were reviewed. All of the patient's questions were answered. The risks of surgery reviewed including but not limited to: Neurovascular damage, wound complication, infection, blood clot, pulmonary embolus, stroke, myocardial infarction, and anesthetic risks up to and including . Continued pain and possible dysfunction were explained. Specific risks of the procedure including later recurrence of deformity. No guarantees were offered. If hardware used, discussed risk of failure/ breakage and possible need for removal. If complications occur, the patient understands the need for further treatment, possible further surgery. Patient verbalizes understanding and wishes to proceed. PLAN: Plan for surgery on 02/02 with ORIF of the left ankle. Continue NWB LLE. Pain control. Elevate heel. Ice. Subjective Subjective Date/Time Seen: 02/01/22 16:38 Interval history: Left ankle fracture. Patient awake , no complaints at rest. Oriented to self and place. No new concerns. knows he is in hospital but not name of Hospital. Review of Systems Constitutional: Constitutional: Denies fever(s) Eyes: Eyes: Denies blurry vision ENT: Reports Normal hearing present Cardiovascular: Cardiovascular: Denies chest pain and Denies dyspnea Respiratory: Respiratory: Denies dyspnea and Denies wheezing Gastrointestinal: Gastrointestinal: Denies abdominal pain Genitourinary: Genitourinary: Denies urinary urgency Musculoskeletal: Musculoskeletal: Reports as per HPI and Denies numbness Integumentary/Breasts: Skin/Breast: Denies changing lesions and Denies sores Neurologic: Reports Normal hearing present, Denies behavioral changes, Denies confusion, Denies numbness and Denies convulsions Psychiatric: Psychiatric: Denies behavioral changes, Denies confusion and Denies hallucinations Endocrine: Endocrine: Denies heat intolerance Hematologic/Lymphatic: Hematologic/Lymphatic: Denies easy bleeding Allergic/Immunologic: Allergic/Immunologic: Denies wheezing Exam Const: General: No confusion Orientation/consciousness: No confusion HENMT: Head: normal to inspection, normocephalic and atraumatic Neck: Neck: supple and nontender Chest: Chest palpation & inspection: normal inspection of the chest Resp: Effort & Inspection: normal respiratory effort and no audible wheezes Cardio: Rate: regular rate : General: Yes deferred Skin: General skin exam: no rashes or lesions noted Neuro: General: No confusion Cranial nerves: Yes Normal hearing present Extrem: General: capillary refill normal Right upper extremity: normal to inspection Left upper extremity: normal to inspection Right lower extremity: normal to inspection and hip/thigh Details: normal to inspection Left lower extremity: hip/thigh Details: normal to inspection, knee Details: normal to inspection and knee ligament exam normal Details: anterior drawer test normal, valgus stress test normal, varus
--- NOTE | 2022-02-01 17:26 | PM.IMPN ---
Progress Note: A&P Assessment and Plan (1) Bimalleolar ankle fracture: Qualifiers: Encounter type: initial encounter Fracture type: closed Laterality: left Qualified Code(s): S82.842A - Displaced bimalleolar fracture of left lower leg, initial encounter for closed fracture Code(s): S82.843A - Displaced bimalleolar fracture of unspecified lower leg, initial encounter for closed fracture Status: Acute Assessment and Plan: Orthopedic surgery has been consult and appreciate further recommendations. Patient does have a splint on at this time and states he is not having any pain. patient is okay to proceed with surgery from medical standpoint. Spoke with family and this is the patient's baseline functional capacity in mental status. Tentative plan for surgery for the 7th. 02/02/2022 Interval history: patient is 76-year-old male with dementia presented emergency department with complaint of fall and pain in left ankle and his found to have by malleolar fracture, patient seen by orthopedic surgeon and scheduled to have ORIF tomorrow and will follow-up and monitor. patient unable to provide detailed review of symptom (2) Alcohol abuse: Code(s): F10.10 - Alcohol abuse, uncomplicated Status: Acute Assessment and Plan: Monitor. (3) Benign essential HTN: Code(s): I10 - Essential (primary) hypertension Status: Acute Assessment and Plan: Continue current regimen Subjective Date/time seen: 02/01/22 17:26 02/02/2022 Interval history: patient is 76-year-old male with dementia presented emergency department with complaint of fall and pain in left ankle and his found to have by malleolar fracture, patient seen by orthopedic surgeon and scheduled to have ORIF tomorrow and will follow-up and monitor. patient unable to provide detailed review of symptom Exam Narrative: Patient is comfortable, NAD HEENT: eyes are clear and none icteric LUNGS: normal respiratory effort ABD: distended Lower extremities: no edema MS: left lower extremity in immobilizer SKIN: nonjaundiced Neuro: grossly intact. Objective Data Vital Signs Vital Signs: Vital Signs - 24 hr 01/31/22 22:07 01/31/22 20:00 02/01/22 06:00 Temperature 99.0 F 98.2 F Pulse Rate 93 84 Respiratory Rate 18 20 Blood Pressure 125/82 117/82 Pulse Oximetry 94 94 Oxygen Delivery Room Air 02/01/22 14:00 02/01/22 09:05 Temperature 98.3 F Pulse Rate 84 Respiratory Rate 20 Blood Pressure 114/70 Pulse Oximetry 94 Oxygen Delivery Room Air Intake/Output Intake/Output: Intake & Output 01/29/22 01/30/22 01/31/22 02/01/22 23:59 23:59 23:59 23:59 Intake Total 1450 894 700 340 Output Total 1100 500 Balance 350 394 700 340 Meds/Results Medications: Active Medications Generic Name Dose Route Start Last Admin Trade Name Freq PRN Reason Stop Dose Admin Amlodipine Besylate 5 mg 01/26/22 09:00 02/01/22 09:09 Amlodipine Besylate 5 Mg Tablet PO 5 mg DAILY HERMINIO Administration Aspirin 81 mg 01/26/22 09:00 02/01/22 09:09 Aspirin 81 Mg Enteric Tablet PO 81 mg DAILY HERMINIO Administration Atorvastatin Calcium 10 mg 01/26/22 09:00 02/01/22 09:09 Atorvastatin 10 Mg Tablet PO 10 mg DAILY HERMINIO Administration Buspirone HCl 10 mg 01/25/22 17:00 02/01/22 17:03 Buspirone Hcl 10 Mg Tablet PO 10 mg BID HERMINIO Administration Chlordiazepoxide HCl 25 mg 01/30/22 16:25 02/01/22 09:12 Chlordiazepoxide (*Crx) 25 Mg Capsule PO 25 mg Q12HR HERMINIO Administration Donepezil HCl 5 mg 01/26/22 09:00 02/01/22 09:10 Donepezil Hcl 5 Mg Tablet PO 5 mg DAILY HERMINIO Administration Enoxaparin Sodium 40 mg 01/30/22 09:00 02/01/22 09:09 Enoxaparin 40 Mg/0.4 Ml Syringe SUB-Q 40 mg DAILY HERMINIO Administration Fentanyl Citrate 25 mcg 02/01/22 13:02 Fentanyl Citrate Inj (*Crx) 100 Mcg/2 Ml Vial IV PUSH Q2M PRN Pain Hydrochlorothiazide 12.5 mg
[2022-02-01] MEDS: LATANOPROST 0.005% OP SOLN 2.5 ML BTL 1 DROP EACH EYE (20:03)
[2022-02-01 21:00] VITALS: BP 118/83; PULSE 85; RESP 16; TEMP 36.3; O2SAT 93
[2022-02-02] VITALS (16 sets, daily range): BP systolic 93–144; BP diastolic 61–105; PULSE 62–93; RESP 12–18; TEMP 36.2–37.2; O2SAT 92–100
--- NOTE | 2022-02-02 06:50 | WPDHPUPDATE1 ---
History and Physical Update Update Date/Time: 02/02/22 06:50 History and Physical has been reviewed, including an updated exam of the patient. There are NO changes in the patient's condition. Risks, benefits, and alternatives have been discussed and questions answered. Patient agrees to proceed with procedure.
--- NOTE | 2022-02-02 06:54 | SUR.PREOP ---
SPOKE TO DR MEDRANO. DO NOT REMOVE SPLINT, NO SHAVE
[2022-02-02] MEDS: LACTATED RINGERS 1,000 ML 30 ML IV CONT (07:01)
[2022-02-02] MEDS: KETOROLAC 15 MG/ML VIAL (*BKC) IV PUSH (07:02)
[2022-02-02] MEDS: ACETAMINOPHEN 500 MG TABLET 1000 MG PO (07:04)
[2022-02-02 07:22] LABS: Glucose Point of Care 101 mg/dl (65-105)
[2022-02-02] MEDS: ceFAZolin 2 GM/D5W 50 ML 2 GM/50 ML BAG IVPB (07:34)
[2022-02-02] MEDS: BUPIVACAINE/EPINEPHRINE 0.25% 50 ML VIAL INFILTRATE (08:01)
--- NOTE | 2022-02-02 09:12 | W.PM.PROC2 ---
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 Has been medically stabilized and cleared for surgery. Description of Procedure After informed consent, the operative extremity was marked in the preoperative holding area. Patient received intravenous antibiotics. Patient was then taken to the operating room and underwent general anesthesia by the anesthesia team. Positioned supine on the operating room table with a soft bump under the ipsilateral hip. A time-out was performed confirming the patient, site of the surgery, operative plan. Lower extremity then prepped and draped in the usual sterile surgical fashion using ChloraPrep skin solution. Foot and ankle exsanguinated and a thigh tourniquet inflated to 250 mmHg. Longitudinal incision made over the lateral ankle distal fibula with a 15 blade knife. Hemostasis controlled with electrocautery. Full-thickness soft tissue flaps developed and the fascia was incised in line with the skin incision. Fracture identified and cleared with a dental pick, irrigation and rongeur. Large amount of fracture hematoma extending to the anterior ankle joint evacuated. Fracture reduced and held with bone-holding clamp. Image intensification confirmed reduction of the fracture and the ankle mortise. Neutralization with a lateral plate with unicortical screws distal to fracture and bicortical screws proximal to the fracture. Good alignment and stability of the fracture noted. Image intensification used to confirm reduction of the fracture and placement of the hardware. Medial side then addressed. Longitudinal incision made with a 15 blade knife over the medial malleolus fracture. Hemostasis controlled with electrocautery. Fascia incised in line with skin incision. Periosteum cleared from the medial malleolus fracture. Medial side of the joint inspected and noted to have mild amount of trauma to the chondral surface. Thorough irrigation of the ankle joint and suctioned out. Fracture reduced and provisionally pinned. Fixation achieved with 4.0 mm partially threaded cancellous screws x1 placed in cannulated screw fashion. Image intensification confirmed reduction of the fracture and placement of the hardware. Stress of the ankle performed with instability of the syndesmosis noted. Visualization of the syndesmosis anterior to the fibula at the tibial incisura performed. Fibular reduced. Fixation achieved with 3.5 mm cortical screws placed from lateral to medial. Verified with image intensification. Ankle taken through range of motion as well as stability with fluoroscopy and noted to be stable in all directions. Wounds thoroughly irrigated with antibiotic solution. Fascia repaired with 00 Vicryl interrupted suture. Subcutaneous tissue repaired with 000 Monocryl interrupted suture and Skin approximated with interrupted 4-0 nylon suture Sterile dressings applied followed by bulky dressing and splint. Patient awoken from anesthesia, extubated and taken to the recovery room in stable condition. All sponge, needle and instrument counts correct at the end of the case. Palpable dorsalis pedis pulse noted prior to dressing. Implants Arthrex 08/01 tubular 8 hole locking plate. 4.0 mm cannulated screw x1. 3.5 mm syndesmosis screws x2 Estimated Blood Loss 10 Tourniquet Time 65 Urine Output 300 Drains No Packing No Pathology None sent Complications None Condition Stable Disposition PACU
[2022-02-02 09:15] LABS: Glucose Point of Care 107 mg/dl (65-105)
--- NOTE | 2022-02-02 10:15 | PC.NURSE ---
Back from OR via bed. Report received from Tone HUNTER.
--- NOTE | 2022-02-02 13:20 | PM.IMPN ---
Progress Note: A&P Assessment and Plan (1) Bimalleolar ankle fracture: Qualifiers: Encounter type: initial encounter Fracture type: closed Laterality: left Qualified Code(s): S82.842A - Displaced bimalleolar fracture of left lower leg, initial encounter for closed fracture Code(s): S82.843A - Displaced bimalleolar fracture of unspecified lower leg, initial encounter for closed fracture Status: Acute Assessment and Plan: Orthopedic surgery has been consult and appreciate further recommendations. Patient does have a splint on at this time and states he is not having any pain. patient is okay to proceed with surgery from medical standpoint. Spoke with family and this is the patient's baseline functional capacity in mental status. Tentative plan for surgery for the 7th. 02/02/2022 Interval history: patient is 76-year-old male with dementia presented emergency department with complaint of fall and pain in left ankle and his found to have by malleolar fracture, patient seen by orthopedic surgeon and scheduled to have ORIF tomorrow and will follow-up and monitor. patient unable to provide detailed review of symptom. 02/03/2022 Interval history: patient is 76-year-old male with dementia presented emergency department with complaint of fall and pain in left ankle and he is found to have by bimalleolar fracture, patient wasseen by orthopedic surgeon and had ORIF today and will follow-up and monitor. patient unable to provide detailed review of symptom, will have a PT OT evaluate the patient patient will benefit going to acute rehab (2) Alcohol abuse: Code(s): F10.10 - Alcohol abuse, uncomplicated Status: Acute Assessment and Plan: Monitor. (3) Benign essential HTN: Code(s): I10 - Essential (primary) hypertension Status: Acute Assessment and Plan: Continue current regimen Subjective Date/time seen: 02/02/22 13:20 02/03/2022 Interval history: patient is 76-year-old male with dementia presented emergency department with complaint of fall and pain in left ankle and he is found to have by bimalleolar fracture, patient wasseen by orthopedic surgeon and had ORIF today and will follow-up and monitor. patient unable to provide detailed review of symptom, will have a PT OT evaluate the patient patient will benefit going to acute rehab Exam Narrative: Patient is comfortable, NAD HEENT: eyes are clear and none icteric LUNGS: normal respiratory effort ABD: distended Lower extremities: no edema MS: left lower extremity in immobilizer SKIN: nonjaundiced Neuro: grossly intact. Objective Data Vital Signs Vital Signs: Vital Signs - 24 hr 02/01/22 14:00 02/01/22 21:00 02/01/22 20:00 Temperature 98.3 F 97.4 F L Pulse Rate 84 85 Respiratory Rate 20 16 Blood Pressure 114/70 118/83 Pulse Oximetry 94 93 Oxygen Delivery Room Air Oxygen Flow Rate 02/02/22 06:00 02/02/22 07:08 02/02/22 09:05 Temperature 97.2 F L 99 F 97.5 F L Pulse Rate 93 87 62 Respiratory Rate 18 18 13 Blood Pressure 142/98 H 134/91 H 98/68 L Pulse Oximetry 93 96 98 Oxygen Delivery Room Air Simple Face Mask Oxygen Flow Rate 8 02/02/22 09:20 02/02/22 09:35 02/02/22 09:50 Temperature Pulse Rate 65 66 79 Respiratory Rate 12 12 12 Blood Pressure 103/71 111/61 137/92 H Pulse Oximetry 94 100 92 Oxygen Delivery Simple Face Mask Simple Face Mask Room Air Oxygen Flow Rate 8 8 02/02/22 10:05 02/02/22 10:13 02/02/22 10:28 Temperature 97.8 F 97.8 F Pulse Rate 77 77 80 Respiratory Rate 12 14 16 Blood Pressure 132/83 127/73 115/76 Pulse Oximetry 99 99 98 Oxygen Delivery Nasal Cannula Oxygen Flow Rate 2 02/02/22 10:58 02/02/22 12:54 02/02/22 10:15 Temperature 97.8 F 97.7 F Pulse Rate 76 77 Respiratory Rate 16 16 Blood Pressure 105/72 108/78 Pulse Oximetry 95 95 99 Oxygen Delivery Nasal Cannula Oxygen Flow Rate 1 Intake/Output Intake/Output: Inta
[2022-02-02] MEDS: KCL 20 MEQ/D5/0.45% SOD CHL 1,000 ML 80 ML IV CONT (13:26)
[2022-02-02] MEDS: hydroCHLOROthiazide 12.5 MG CAPSULE PO (16:00)
[2022-02-02] MEDS: amLODIPine BESYLATE 5 MG TABLET PO (16:00)
[2022-02-02] MEDS: busPIRone HCL 10 MG TABLET PO ×2 (16:00→21:34)
[2022-02-02] MEDS: ASPIRIN 81 MG ENTERIC TABLET PO (16:01)
[2022-02-02] MEDS: ATORVASTATIN 10 MG TABLET PO (16:01)
[2022-02-02] MEDS: DONEPEZIL HCL 5 MG TABLET PO (16:04)
[2022-02-02] MEDS: SERTRALINE HCL 50 MG TABLET 150 MG PO (16:04)
[2022-02-02] MEDS: TIMOLOL MALEATE 0.5% OP SOLN 5 ML BOTTLE 1 DROP EACH EYE (16:04)
[2022-02-02] MEDS: lisinopriL 20 MG TABLET PO (16:04)
[2022-02-02] MEDS: ENOXAPARIN 40 MG/0.4 ML SYRINGE SUB-Q (16:04)
[2022-02-02] MEDS: FAMOTIDINE 20 MG TABLET PO (21:33)
[2022-02-02] MEDS: chlordiazePOXIDE (*CRX) 25 MG CAPSULE PO (21:34)
[2022-02-02] MEDS: LATANOPROST 0.005% OP SOLN 2.5 ML BTL 1 DROP EACH EYE (21:34)
[2022-02-02] MEDS: ACETAMINOPHEN 325 MG TABLET 650 MG PO (23:28)
[2022-02-03] VITALS (7 sets, daily range): BP systolic 116–140; BP diastolic 63–84; PULSE 83–101; RESP 18–22; TEMP 36.3–37.2; O2SAT 93–98; BMI 10.0
[2022-02-03 06:29] LABS: Anion Gap 8 mmol/L (8-16); Blood Urea Nitrogen 12 mg/dL (9-20); Calcium 8.4 mg/dL (8.4-10.2); Carbon Dioxide 20 mmol/L (22-30); Chloride 98 mmol/L (98-107); Estimated CRCL calculation 66 ml/min; Estimated Glomerular Filt Rate > 60; Glucose 112 mg/dL (65-110); Potassium 3.7 mmol/L (3.4-5.0); Sodium 126 mmol/L (137-145)
[2022-02-03 07:56] LABS: Basophils Percent Auto 0.3 % (0.2-1.2); Eosinophils Percent Auto 0.3 % (0-4.4); Hematocrit 42.3 % (42.0-52.0); Hemoglobin 14.5 g/dL (14.0-18.0); Immature Granulocyte Absolute 0.04 K/mm3 (0.00-0.031); Immature Granulocyte Percent A 0.3 % (0-0.5); Lymphocytes Absolute Auto 1.65 K/mm3 (0.9-3.2); Lymphocytes Percent Auto 14.4 % (18.3-44.2); Mean Corpuscular HGB Conc 34.3 g/dl (32-36); Mean Corpuscular Hemoglobin 33.6 pg (26-34); Mean Corpuscular Volume 98.1 fl (80-100); Mean Platelet Volume 9.6 fl (7.4-10.4); Monocytes Absolute Auto 1.5 K/mm3 (0.1-0.6); Monocytes Percent Auto 12.9 % (2.6-8.5); Neutrophils Absolute Auto 8.2 K/mm3 (1.3-6.7); Neutrophils Percent Auto 71.8 % (45.5-73.1); Platelet Count Result 292 k/mm3 (150-375); Red Blood Count 4.31 M/mm3 (4.6-6.20); Red Cell Distribution Width 12.2 % (11.5-14.5); White Blood Count 11.4 K/mm3 (4.5-10.0)
[2022-02-03] MEDS: amLODIPine BESYLATE 5 MG TABLET PO (09:58)
[2022-02-03] MEDS: ASPIRIN 81 MG ENTERIC TABLET PO (09:58)
[2022-02-03] MEDS: ATORVASTATIN 10 MG TABLET PO (09:58)
[2022-02-03] MEDS: FAMOTIDINE 20 MG TABLET PO ×2 (09:58→21:13)
[2022-02-03] MEDS: hydroCHLOROthiazide 12.5 MG CAPSULE PO (09:58)
[2022-02-03] MEDS: lisinopriL 20 MG TABLET PO (09:58)
[2022-02-03] MEDS: busPIRone HCL 10 MG TABLET PO ×2 (09:59→18:46)
[2022-02-03] MEDS: SENNA/DOCUSATE SODIUM TABLET 2 TAB PO ×2 (09:59→18:46)
[2022-02-03] MEDS: chlordiazePOXIDE (*CRX) 25 MG CAPSULE PO ×2 (09:59→21:13)
[2022-02-03] MEDS: DONEPEZIL HCL 5 MG TABLET PO (09:59)
[2022-02-03] MEDS: polyethylene glycoL 3350 17 GM POWD.PACK PO (09:59)
[2022-02-03] MEDS: TIMOLOL MALEATE 0.5% OP SOLN 5 ML BOTTLE 1 DROP EACH EYE (10:00)
[2022-02-03] MEDS: SERTRALINE HCL 50 MG TABLET 150 MG PO (10:31)
--- NOTE | 2022-02-03 11:17 | PM.PNORT ---
Subjective Subjective Date/Time Seen: 02/03/22 11:17 Post Op day: 1 Principal diagnosis: Left ankle fracture Interval history: patient complains of muscle spasms left leg. Some pain with movement. Exam Const: General: No confusion Orientation/consciousness: No confusion HENMT: Head: normal to inspection, normocephalic and atraumatic Neck: Neck: supple and nontender Chest: Chest palpation & inspection: normal inspection of the chest Resp: Effort & Inspection: normal respiratory effort and no audible wheezes Cardio: Rate: regular rate : General: Yes deferred Skin: General skin exam: no rashes or lesions noted Neuro: General: No confusion Cranial nerves: Yes Normal hearing present Extrem: General: capillary refill normal Right upper extremity: normal to inspection Left upper extremity: normal to inspection Right lower extremity: normal to inspection and hip/thigh Details: normal to inspection Left lower extremity: hip/thigh Details: normal to inspection, knee Details: normal to inspection and knee ligament exam normal Details: anterior drawer test normal, valgus stress test normal, varus stress test normal and Chuy's test normal, ankle (no calf tenderness) Details: abnormal to inspection ( Obvious swelling at the ankle joint), tenderness ( lateral malleolus), swelling (moderate lateral ankle), abnormal ROM Details: pain with active ROM Details: with plantar flexion and with dorsiflexion and with range as follows ( limited secondary to injury), crepitus Details: at the lateral malleolus and other ( good capillary refill in toes, 2+ DP pulse) and foot Details: normal capillary refill, toes with normal ROM, vascular exam Details: dorsalis pedis pulse present and motor-sensory exam Other: Splint in place left ankle. Toes pink and warm. Able to move. Psych: Affect: normal affect Objective Data Vital Signs Vital Signs: Vital Signs - 24 hr 02/02/22 12:54 02/02/22 14:43 02/02/22 16:15 Temperature 97.7 F 97.1 F L Pulse Rate 77 85 Respiratory Rate 16 18 Blood Pressure 108/78 93/65 L Pulse Oximetry 95 94 Oxygen Delivery Nasal Cannula Oxygen Flow Rate 1 02/02/22 19:58 02/02/22 20:00 02/02/22 23:58 Temperature 97.3 F L 98.7 F Pulse Rate 83 86 Respiratory Rate 18 18 Blood Pressure 144/105 H 128/80 Pulse Oximetry 94 93 Oxygen Delivery Room Air Oxygen Flow Rate 02/03/22 03:58 02/03/22 07:58 Temperature 97.3 F L 97.8 F Pulse Rate 83 90 Respiratory Rate 18 20 Blood Pressure 140/84 125/70 Pulse Oximetry 98 98 Oxygen Delivery Oxygen Flow Rate Intake/Output Intake/Output: Intake & Output 01/31/22 02/01/22 02/02/22 02/03/22 23:59 23:59 23:59 23:59 Intake Total 671 762 9237 200 Output Total 300 300 300 Balance 945 604 1628 -100 Meds/Results Medications: Active Medications Generic Name Dose Route Start Last Admin Trade Name Freq PRN Reason Stop Dose Admin Acetaminophen 650 mg 02/02/22 10:13 02/02/22 23:28 Acetaminophen 325 Mg Tablet PO 650 mg Q6H PRN Administration Pain Rated 1-3 Amlodipine Besylate 5 mg 01/26/22 09:00 02/03/22 09:58 Amlodipine Besylate 5 Mg Tablet PO 5 mg DAILY HERMINIO Administration Aspirin 81 mg 01/26/22 09:00 02/03/22 09:58 Aspirin 81 Mg Enteric Tablet PO 81 mg DAILY HERMINIO Administration Atorvastatin Calcium 10 mg 01/26/22 09:00 02/03/22 09:58 Atorvastatin 10 Mg Tablet PO 10 mg DAILY HERMINIO Administration Bisacodyl 10 mg 02/02/22 10:13 Bisacodyl 10 Mg Suppository RECTAL DAILY PRN Constipation Buspirone HCl 10 mg 01/25/22 17:00 02/03/22 09:59 Buspirone Hcl 10 Mg Tablet PO 10 mg BID HERMINIO Administration Chlordiazepoxide HCl 25 mg 01/30/22 16:25 02/03/22 09:59 Chlordiazepoxide (*Crx) 25 Mg Capsule PO 25 mg Q12HR HERMINIO Administration Donepezil HCl 5 mg 01/26/22 09:00 02/03/22 09:59 Donepezil Hcl 5 Mg Tablet PO 5 mg DAILY HERMINIO Administration
[2022-02-03] MEDS: LORazepam INJ (*CRX) 2 MG/ML VIAL 1 MG IV PUSH (11:33)
--- NOTE | 2022-02-03 14:16 | PM.IMPN ---
Progress Note: A&P Assessment and Plan (1) Bimalleolar ankle fracture: Qualifiers: Encounter type: initial encounter Fracture type: closed Laterality: left Qualified Code(s): S82.842A - Displaced bimalleolar fracture of left lower leg, initial encounter for closed fracture Code(s): S82.843A - Displaced bimalleolar fracture of unspecified lower leg, initial encounter for closed fracture Status: Acute Assessment and Plan: Orthopedic surgery has been consult and appreciate further recommendations. Patient does have a splint on at this time and states he is not having any pain. patient is okay to proceed with surgery from medical standpoint. Spoke with family and this is the patient's baseline functional capacity in mental status. Tentative plan for surgery for the 7th. 02/01/2022 Interval history: patient is 76-year-old male with dementia presented emergency department with complaint of fall and pain in left ankle and his found to have by malleolar fracture, patient seen by orthopedic surgeon and scheduled to have ORIF tomorrow and will follow-up and monitor. patient unable to provide detailed review of symptom. 02/02/2022 Interval history: patient is 76-year-old male with dementia presented emergency department with complaint of fall and pain in left ankle and he is found to have by bimalleolar fracture, patient wasseen by orthopedic surgeon and had ORIF today and will follow-up and monitor. patient unable to provide detailed review of symptom, will have a PT OT evaluate the patient patient will benefit going to acute rehab, 02/03/2022 Interval history: patient is 76-year-old male with dementia presented emergency department with complaint of fall and pain in left ankle and he is found to have by bimalleolar fracture, patient was seen by orthopedic surgeon and had ORIF on 02/02 POD #1, today patient stats pain in the leg persist, and will follow-up and monitor. patient unable to provide detailed review of symptom, will have a PT OT evaluate the patient patient will benefit going to acute rehab. (2) Alcohol abuse: Code(s): F10.10 - Alcohol abuse, uncomplicated Status: Acute Assessment and Plan: Monitor. (3) Benign essential HTN: Code(s): I10 - Essential (primary) hypertension Status: Acute Assessment and Plan: Continue current regimen Subjective Date/time seen: 02/03/22 14:16 02/03/2022 Interval history: patient is 76-year-old male with dementia presented emergency department with complaint of fall and pain in left ankle and he is found to have by bimalleolar fracture, patient was seen by orthopedic surgeon and had ORIF on 02/02 POD #1, today patient stats pain in the leg persist, and will follow-up and monitor. patient unable to provide detailed review of symptom, will have a PT OT evaluate the patient patient will benefit going to acute rehab. Exam Narrative: Patient is comfortable, NAD HEENT: eyes are clear and none icteric LUNGS: normal respiratory effort ABD: distended Lower extremities: no edema MS: left lower extremity in immobilizer SKIN: nonjaundiced Neuro: grossly intact. Objective Data Vital Signs Vital Signs: Vital Signs - 24 hr 02/02/22 14:43 02/02/22 16:15 02/02/22 19:58 Temperature 97.1 F L 97.3 F L Pulse Rate 85 83 Respiratory Rate 18 18 Blood Pressure 93/65 L 144/105 H Pulse Oximetry 94 94 Oxygen Delivery Nasal Cannula Oxygen Flow Rate 1 02/02/22 20:00 02/02/22 23:58 02/03/22 03:58 Temperature 98.7 F 97.3 F L Pulse Rate 86 83 Respiratory Rate 18 18 Blood Pressure 128/80 140/84 Pulse Oximetry 93 98 Oxygen Delivery Room Air Oxygen Flow Rate 02/03/22 07:58 02/03/22 08:00 02/03/22 11:58 Temperature 97.8 F 98.8 F Pulse Rate 90 97 Respiratory Rate 20 22 H Blood Pressure 125/70 116/63 Pulse Oximetry 98 98 95 Oxygen Delivery Room Air Oxygen Flow Rate Intake/Output Intake/O
[2022-02-03] MEDS: LATANOPROST 0.005% OP SOLN 2.5 ML BTL 1 DROP EACH EYE (21:13)
[2022-02-04 05:49] VITALS: BP 117/74; PULSE 93; RESP 20; TEMP 36.8; O2SAT 97
[2022-02-04] MEDS: lisinopriL 20 MG TABLET PO (09:02)
[2022-02-04] MEDS: TIMOLOL MALEATE 0.5% OP SOLN 5 ML BOTTLE 1 DROP EACH EYE (09:02)
[2022-02-04] MEDS: SENNA/DOCUSATE SODIUM TABLET 2 TAB PO (09:02)
[2022-02-04] MEDS: FAMOTIDINE 20 MG TABLET PO ×2 (09:02→20:05)
[2022-02-04] MEDS: SERTRALINE HCL 50 MG TABLET 150 MG PO (09:02)
[2022-02-04] MEDS: amLODIPine BESYLATE 5 MG TABLET PO (09:02)
[2022-02-04] MEDS: ATORVASTATIN 10 MG TABLET PO (09:02)
[2022-02-04] MEDS: hydroCHLOROthiazide 12.5 MG CAPSULE PO (09:02)
[2022-02-04] MEDS: ASPIRIN 81 MG ENTERIC TABLET PO (09:02)
[2022-02-04] MEDS: DONEPEZIL HCL 5 MG TABLET PO (09:02)
[2022-02-04] MEDS: busPIRone HCL 10 MG TABLET PO ×2 (09:02→17:12)
--- NOTE | 2022-02-04 10:31 | PM.DS ---
DS: Summary Time Spent with Patient Time attestation: Total time spent providing and/or coordinating discharge services: Discharge Plan Discharge Attending physician on discharge: Brett Tello Consulting providers: Spenser Hendrix Discharging Clinician: Brett Tello Patient Disposition: Acute Care Hospital Activity: no driving and as tolerated Diet: heart healthy Discharge Instructions: patient to follow discharge care instruction from his surgeon and follow up as scheduled, patient to follow up with is primary care provider as soon as possible. if any symptoms worsen, please go to nearest ER. Patient Instructions: Antibiotic Form, Hyponatremia (DC), Abuse of Alcohol (DC), Alcohol Withdrawal (DC), ORIF of an Arm Fracture (DC) Follow-up/Referrals: Waldo Gil MD [Primary Care Provider] - Spenser Hendrix MD [Physician] - Discharge Medications: New loperamide 2 mg Capsule 2 mg PO PRN PRN (Reason: Diarrhea) Qty: 20 0RF sennosides-docusate sodium [Senokot-S] 8.6-50 mg Tablet 2 tab PO BID Qty: 30 0RF famotidine 20 mg Tablet 20 mg PO Q12HR Qty: 30 0RF polyethylene glycol 3350 [Miralax] 17 gram Powder In Packet 17 g PO QAM Qty: 30 0RF Continued latanoprost 0.005 % drops 1 drop EACH EYE DAILY aspirin [Adult Low Dose Aspirin] 81 mg tablet,delayed release (DR/EC) 81 mg PO DAILY donepezil 10 mg tablet 5 mg PO ONCE metformin 500 mg tablet 500 mg PO BID buspirone 10 mg tablet 10 mg PO BID amlodipine 5 mg tablet 5 mg PO DAILY quetiapine 25 mg tablet 25 mg PO BID atorvastatin 10 mg tablet 10 mg PO DAILY lisinopril-hydrochlorothiazide 20-12.5 mg tablet 1 tablet PO DAILY sertraline 100 mg tablet 150 mg PO DAILY timolol maleate 0.5 % drops 1 drop EACH EYE QAM Date of admission: 01/24/22 17:50 Primary Care Provider: Waldo Gil Admitting Provider: Thelma Donovan Attending physician on admission: Thelma Donovan Condition: Stable
[2022-02-04] MEDS: KCL 20 MEQ/D5/0.45% SOD CHL 1,000 ML 80 ML IV CONT (12:42)
--- NOTE | 2022-02-04 13:30 | PM.IMPN ---
Progress Note: A&P Assessment and Plan (1) Bimalleolar ankle fracture: Qualifiers: Encounter type: initial encounter Fracture type: closed Laterality: left Qualified Code(s): S82.842A - Displaced bimalleolar fracture of left lower leg, initial encounter for closed fracture Code(s): S82.843A - Displaced bimalleolar fracture of unspecified lower leg, initial encounter for closed fracture Status: Acute Assessment and Plan: (1) Bimalleolar ankle fracture: ?Qualifiers: ?Encounter type:?initial encounter??Fracture type:?closed??Laterality:?left? Qualified Code(s):?S82.842A - Displaced bimalleolar fracture of left lower leg, initial encounter for closed fracture ?Code(s): S82.843A - Displaced bimalleolar fracture of unspecified lower leg, initial encounter for closed fracture ?Status:?Acute ?Assessment and Plan: Orthopedic surgery has been consult and appreciate further recommendations.? Patient does have a splint on at this time and states he is not having any pain. patient is okay to proceed with surgery from medical standpoint.? Spoke with family and this is the patient's baseline functional capacity in mental status.? Tentative plan for surgery for the 7th. 02/01/2022 Interval history:? patient is 76-year-old male with dementia presented emergency department with complaint of fall and pain in left ankle and his found to have by malleolar fracture, patient seen by orthopedic surgeon and scheduled to have ORIF tomorrow and will follow-up and monitor.? patient unable to provide detailed review of symptom. 02/02/2022 Interval history:? patient is 76-year-old male with dementia presented emergency department with complaint of fall and pain in left ankle and he is? found to have by bimalleolar fracture, patient wasseen by orthopedic surgeon and had ORIF today and will follow-up and monitor.? patient unable to provide detailed review of symptom,? will have a PT OT evaluate the patient patient will benefit going to acute rehab, 02/03/2022 Interval history:? patient is 76-year-old male with dementia presented emergency department with complaint of fall and pain in left ankle and he is? found to have by bimalleolar fracture, patient was seen by orthopedic surgeon and had ORIF on 02/02 POD #1, today patient stats pain in the leg persist,? and will follow-up and monitor.? patient unable to provide detailed review of symptom,? will have a PT OT evaluate the patient patient will benefit going to acute rehab. 02/04/2022 Interval history:? patient is 76-year-old male with dementia presented emergency department with complaint of fall and pain in left ankle and he is? found to have by bimalleolar fracture, patient was seen by orthopedic surgeon and had ORIF on 02/02 POD #2 today patient stats pain in the leg persist,?today patient sodium levle is 126, will place patient on fluids restriction, will monitor and will follow-up and monitor.? patient unable to provide detailed review of symptom,? will have a PT OT evaluate the patient patient will benefit going to acute rehab. (2) Alcohol abuse: Code(s): F10.10 - Alcohol abuse, uncomplicated Status: Acute Assessment and Plan: remains clinically stable does not show any sign of DT (3) Benign essential HTN: Code(s): I10 - Essential (primary) hypertension Status: Acute Assessment and Plan: will continue home regimen Subjective Date/time seen: 02/04/22 13:30 02/04/2022 Interval history:? patient is 76-year-old male with dementia presented emergency department with complaint of fall and pain in left ankle and he is? found to have by bimalleolar fracture, patient was seen by orthopedic surgeon and had ORIF on 02/02 POD #2 today patient stats pain in the leg persist,?today patient sodium levle is 126, will place patient on fluids restriction, will monitor and will follow-up and monitor.? patient unable to provide detailed review of symptom,?
[2022-02-04 14:00] VITALS: BP 104/69; PULSE 107; RESP 14; TEMP 36.4; O2SAT 95
[2022-02-04] MEDS: SODIUM CHLORIDE 0.9% IV 250 ML 999 ML (14:46)
[2022-02-04] MEDS: LATANOPROST 0.005% OP SOLN 2.5 ML BTL 1 DROP EACH EYE (20:05)
[2022-02-04 21:19] VITALS: BP 132/76; PULSE 100; RESP 18; TEMP 36.5; O2SAT 92
[2022-02-04 22:27] VITALS: O2SAT 93
[2022-02-05] MEDS: KCL 20 MEQ/D5/0.45% SOD CHL 1,000 ML 80 ML IV CONT (03:25)
[2022-02-05 06:23] VITALS: BP 129/79; PULSE 90; RESP 20; TEMP 36.1; O2SAT 96
[2022-02-05 06:42] LABS: Hematocrit 36.7 % (42.0-52.0); Hemoglobin 12.2 g/dL (14.0-18.0); Mean Corpuscular HGB Conc 33.2 g/dl (32-36); Mean Corpuscular Hemoglobin 32.7 pg (26-34); Mean Corpuscular Volume 98.4 fl (80-100); Mean Platelet Volume 9.4 fl (7.4-10.4); Platelet Count Result 344 k/mm3 (150-375); Red Blood Count 3.73 M/mm3 (4.6-6.20); Red Cell Distribution Width 12.3 % (11.5-14.5); White Blood Count 9.5 K/mm3 (4.5-10.0)
[2022-02-05 06:57] LABS: Anion Gap 1 mmol/L (8-16); Blood Urea Nitrogen 13 mg/dL (9-20); Calcium 8.3 mg/dL (8.4-10.2); Carbon Dioxide 33 mmol/L (22-30); Chloride 98 mmol/L (98-107); Estimated CRCL calculation 74 ml/min; Estimated Glomerular Filt Rate > 60; Glucose 123 mg/dL (65-110); Potassium 3.4 mmol/L (3.4-5.0); Sodium 132 mmol/L (137-145)
[2022-02-05] MEDS: ATORVASTATIN 10 MG TABLET PO (08:52)
[2022-02-05] MEDS: busPIRone HCL 10 MG TABLET PO (08:52)
[2022-02-05] MEDS: ASPIRIN 81 MG ENTERIC TABLET PO (08:52)
[2022-02-05] MEDS: amLODIPine BESYLATE 5 MG TABLET PO (08:52)
[2022-02-05] MEDS: TIMOLOL MALEATE 0.5% OP SOLN 5 ML BOTTLE 1 DROP EACH EYE (08:53)
[2022-02-05] MEDS: hydroCHLOROthiazide 12.5 MG CAPSULE PO (08:53)
[2022-02-05] MEDS: lisinopriL 20 MG TABLET PO (08:53)
[2022-02-05] MEDS: FAMOTIDINE 20 MG TABLET PO (08:53)
[2022-02-05] MEDS: DONEPEZIL HCL 5 MG TABLET PO (08:53)
[2022-02-05] MEDS: SERTRALINE HCL 50 MG TABLET 150 MG PO (08:53)
--- NOTE | 2022-02-05 10:16 | PM.DS ---
DS: Admitting Diagnosis Discharge Date 02/05/2022 Admitting Diagnosis Fall DS: Discharge Diagnosis Discharge Diagnosis (1) Bimalleolar ankle fracture: Qualifiers: Encounter type: subsequent encounter Fracture healing: with routine healing Fracture type: closed Laterality: left Qualified Code(s): S82.842D - Displaced bimalleolar fracture of left lower leg, subsequent encounter for closed fracture with routine healing Code(s): S82.843A - Displaced bimalleolar fracture of unspecified lower leg, initial encounter for closed fracture Status: Acute Assessment and Plan: (1) Bimalleolar ankle fracture: ?Qualifiers: ?Encounter type:?initial encounter??Fracture type:?closed??Laterality:?left? Qualified Code(s):?S82.842A - Displaced bimalleolar fracture of left lower leg, initial encounter for closed fracture ?Code(s): S82.843A - Displaced bimalleolar fracture of unspecified lower leg, initial encounter for closed fracture ?Status:?Acute ?Assessment and Plan: Orthopedic surgery has been consult and appreciate further recommendations.? Patient does have a splint on at this time and states he is not having any pain. patient is okay to proceed with surgery from medical standpoint.? Spoke with family and this is the patient's baseline functional capacity in mental status.? Tentative plan for surgery for the 7th. 02/01/2022 Interval history:? patient is 76-year-old male with dementia presented emergency department with complaint of fall and pain in left ankle and his found to have by malleolar fracture, patient seen by orthopedic surgeon and scheduled to have ORIF tomorrow and will follow-up and monitor.? patient unable to provide detailed review of symptom. 02/02/2022 Interval history:? patient is 76-year-old male with dementia presented emergency department with complaint of fall and pain in left ankle and he is? found to have by bimalleolar fracture, patient wasseen by orthopedic surgeon and had ORIF today and will follow-up and monitor.? patient unable to provide detailed review of symptom,? will have a PT OT evaluate the patient patient will benefit going to acute rehab, 02/03/2022 Interval history:? patient is 76-year-old male with dementia presented emergency department with complaint of fall and pain in left ankle and he is? found to have by bimalleolar fracture, patient was seen by orthopedic surgeon and had ORIF on 02/02 POD #1, today patient stats pain in the leg persist,? and will follow-up and monitor.? patient unable to provide detailed review of symptom,? will have a PT OT evaluate the patient patient will benefit going to acute rehab. 02/04/2022 Interval history:? patient is 76-year-old male with dementia presented emergency department with complaint of fall and pain in left ankle and he is? found to have by bimalleolar fracture, patient was seen by orthopedic surgeon and had ORIF on 02/02 POD #2 today patient stats pain in the leg persist,?today patient sodium levle is 126, will place patient on fluids restriction, will monitor and will follow-up and monitor.? patient unable to provide detailed review of symptom,? will have a PT OT evaluate the patient patient will benefit going to acute rehab. (2) Alcohol abuse: Code(s): F10.10 - Alcohol abuse, uncomplicated Status: Acute Assessment and Plan: remains clinically stable does not show any sign of DT (3) Benign essential HTN: Code(s): I10 - Essential (primary) hypertension Status: Acute Assessment and Plan: will continue home regimen DS: Summary Hospital Course Reason for hospitalization: Chief Complaint: Fall Narrative: Mr. Villalobos is a 76-year-old gentleman who states he fell yesterday and was having left ankle pain.? Patient denies any lightheadedness, dizziness, syncopal, or near syncopal episodes.? Patient states that he did simply tripped and fall.? Patient denies any chest pain, shortness a
== END 2022-02-05 12:30 | DRG 494 ==
LOC: ANHED 17:41 → ANHIMU 01-25 06:32 → ANH3MEDSUR 01-26 10:49 → ANHIMU 02-07 08:37
PROVIDERS: Chiropractor; Nurse Practitioner Adult Health; Orthopaedic Surgery; Admitting Provider Student in an Organized Health Care Education/Training Program; Emergency Provider Emergency Medicine; PCP Family Medicine; Visit Provider Family Medicine
PROC: 0QSK04Z Reposition Left Fibula with Internal Fixation Device, Open Approach (ICD-10-PCS; principal; 2022-02-02 07:30)
DX: S82.842A Displaced bimalleolar fracture of left lower leg, initial encounter for closed fracture (principal); F10.10 Alcohol abuse, uncomplicated; G30.9 Alzheimer's disease, unspecified; F02.80 Dementia in other diseases classified elsewhere, unspecified severity, without behavioral disturbance, psychotic disturbance, mood disturbance, and anxiety; S93.432A Sprain of tibiofibular ligament of left ankle, initial encounter; Z20.822 Contact with and (suspected) exposure to COVID-19; E78.5 Hyperlipidemia, unspecified; E11.40 Type 2 diabetes mellitus with diabetic neuropathy, unspecified; M20.11 Hallux valgus (acquired), right foot; I10 Essential (primary) hypertension; M20.41 Other hammer toe(s) (acquired), right foot; M20.5X1 Other deformities of toe(s) (acquired), right foot; W01.0XXA Fall on same level from slipping, tripping and stumbling without subsequent striking against object, initial encounter; Z79.82 Long term (current) use of aspirin; Z79.84 Long term (current) use of oral hypoglycemic drugs; Z87.891 Personal history of nicotine dependence
CPT/HCPCS: 36415; 71045; 73590; 73600; 73620; 80048; 80053; 80307; 82948; 83735; 85025; 85027; 85610; 85730; 87426; 93005; 96374; 96375; 97110; 97162; 97165; 97166; 97530; 97535; 99285; A9270; C1713; C1769; C9803; J0690; J1100; J1650; J1885; J2060; J2405; J2704; J3010; J3411; J3475; J3480; J7030; J7050; J7120

== ENCOUNTER 2022-02-08 16:04 | Emergency (ER) | payer OTHER, BC, SELFPAY ==
[2022-02-08] VITALS (16 sets, daily range): BP systolic 123–157; BP diastolic 81–97; PULSE 80–88; RESP 12–21; TEMP 36.4; O2SAT 95–98
--- NOTE | ~2022-02-08 | CT_ITS ---
EXAMINATION: CT brain wo con DATE: 02/08/2022 17:18 INDICATION: Status post fall. Head injury. TECHNIQUE: Computed tomography (CT) of the head was performed without intravenous contrast. The dose- length product was 832.33 mGy-cm. Automated exposure control and iterative reconstruction technique w ere employed. COMPARISON: CT dated 10/13/2018 FINDINGS: Generalized atrophy. There are scattered moderate-severe periventricular and subcortical wh ite matter changes, most likely related to small vessel ischemic disease (microangiopathy). No midlin e shift. Basilar cisterns are patent. There is intracranial atherosclerosis. Study limited by motion artifact. Paranasal sinuses and mastoids are pneumatized. No depressed skull fractures. Midline sagit chris images demonstrate a normal corpus callosum and craniovertebral junction. IMPRESSION: 1. No acute intracranial abnormality. Chronic age-related findings. Reviewed, dictated and finalized at location A.
--- NOTE | ~2022-02-08 | XR_ITS ---
XR shoulder LT min 2V 02/08/2022 19:03 Indication: Post reduction left shoulder Procedure: 2 views left shoulder Comparison: Comparison to multiple prior studies sequentially, with oldest reviewed study dated 10/2014. Findings: Interval reduction of anterior shoulder dislocation post reduction. There are superior subl uxation of humeral head suggesting rotator cuff tear. There are degenerative changes of the shoulder. No acute fracture is identified. Impression: 1: Near-anatomic alignment of the left shoulder post reduction. Superior subluxation of the humeral h ead suggests rotator cuff tear. Reviewed, dictated and finalized at location A. Impression: 1: Near-anatomic alignment of the left shoulder post reduction. Superior sublux ation of the humeral head suggests rotator cuff tear.
--- NOTE | ~2022-02-08 | CT_ITS ---
EXAMINATION: CT cervical spine wo con DATE: 02/08/2022 17:18 INDICATION: Status post fall. Neck pain. TECHNIQUE: Computed tomography (CT) of the cervical spine was performed without intravenous contrast. The dose-length product was 486 mGy-cm. Automated exposure control and iterative reconstruction tech nique were employed. COMPARISON: C-spine CT dated 10/13/2018 FINDINGS: There is 3 mm anterolisthesis at C7-T1. There are changes of anterior fusion at C5-6 with i nterbody bone graft and anterior plate with screws. Vertebral body heights are maintained. There is d isc narrowing at all cervical spine levels. Odontoid process is unremarkable. Lung apices are normal. No paraspinal soft tissue abnormalities. No acute fracture or traumatic malalignment. IMPRESSION: 1. No acute fracture. 2: Severe cervical spondylosis with anterior cervical fusion at C5-6. Reviewed, dictated and finalized at location A.
--- NOTE | ~2022-02-08 | XR_ITS ---
XR shoulder LT min 2V 02/08/2022 17:28 Indication: Left shoulder deformity after fall Procedure: 3 views left shoulder Comparison: Comparison to multiple prior studies sequentially, with oldest reviewed study dated 06/29. Findings: There is a left anterior shoulder dislocation with Hill-Sachs fracture deformity of the hum erus, likely chronic. No acute fracture is identified. There are degenerative changes of the acromioc lavicular joint. Impression: 1: Left anterior shoulder dislocation with probable chronic Hill-Sachs fracture deformity of the fritz madalyn. Reviewed, dictated and finalized at location A. Impression: 1: Left anterior shoulder dislocation with probable chronic Hill-Sachs fracture deformity of the humerus.
--- NOTE | ~2022-02-08 | XR_ITS ---
XR ankle LT min 3V 02/08/2022 17:28 Indication: Left ankle pain after fall Procedure: 3 views left ankle Comparison: 01/24/2022 Findings: There is anatomic alignment of the left ankle status post internal fixation with fibular si deplate, screws as well as lag screw transfixing the medial malleolus. Ankle mortise intact. Study pe rformed in plaster cast which obscures bone detail. Talar dome is unremarkable. No gross fracture celio e is identified. There are mild degenerative changes of the midfoot. Osteopenia. Impression: 1: Anatomic alignment of left ankle post reduction with sideplate and screws. Reviewed, dictated and finalized at location A. Impression: 1: Anatomic alignment of left ankle post reduction with sideplate and screws.
[2022-02-08] MEDS: HYDROmorphone HCL INJ (*CRX) 1 MG/ML SYR IV PUSH (18:02)
[2022-02-08] MEDS: ONDANSETRON INJ 4 MG/2 ML VIAL IV PUSH (18:03)
--- NOTE | 2022-02-08 18:14 | ED.FALL ---
HPI - Fall General Chief Complaint: Fall Stated Complaint: GLF LF SHOULDER AND HEAD INJURY Time Seen by Provider: 02/08/22 16:34 Source: patient, family, RN notes reviewed and old records reviewed Mode of arrival: EMS Limitations: dementia History of Present Illness HPI Narrative: This is a 76 year old male with history of dementia who presents for evaluation after a fall. Patient's son is at bedside to assist with history. HE states he received a call that patient fell and he has left shoulder dislocation. Nursing reports patient was walking when he is not suppose to and he tripped. He fell and hit his head. Patient denies headache, dizzy, nausea, vomiting rib pain. He has mild left shoulder pain. He denies chest pain or shortness of breath. He has suffered left ankle fracture that was repaired last week. Related Data Home Medications Medication Instructions Recorded Confirmed aspirin 81 mg tablet,delayed 81 mg PO DAILY 09/17/19 01/24/22 release (Adult Low Dose Aspirin) latanoprost 0.005 % eye drops 1 drop ophthalmic (eye) DAILY 09/17/19 01/24/22 donepezil 10 mg tablet 5 mg PO ONCE 09/01/20 01/24/22 amlodipine 5 mg tablet 5 mg PO DAILY 01/24/22 01/24/22 atorvastatin 10 mg tablet 10 mg PO DAILY 01/24/22 01/24/22 buspirone 10 mg tablet 10 mg PO BID 01/24/22 01/24/22 lisinopril 20 1 tablet PO DAILY 01/24/22 01/24/22 mg-hydrochlorothiazide 12.5 mg tablet metformin 500 mg tablet 500 mg PO BID 01/24/22 01/24/22 quetiapine 25 mg tablet 25 mg PO BID 01/24/22 01/24/22 sertraline 100 mg tablet 150 mg PO DAILY 01/24/22 01/24/22 timolol maleate 0.5 % eye drops 1 drop ophthalmic (eye) QAM 01/24/22 01/24/22 Allergies Allergy/AdvReac Type Severity Reaction Status Date / Time house dust Allergy Unknown sneezing Verified 01/27/22 12:56 Review of Systems Review of Systems: All systems reviewed & are unremarkable except as noted in HPI and below Constitutional: Constitutional: Denies chills, Denies fatigue and Denies fever(s) Cardiovascular: Cardiovascular: Denies chest pain Respiratory: Respiratory: Denies chest congestion and Denies cough PMFSH Past Medical History Medical History Alcohol abuse Alzheimer disease Benign essential HTN Cirrhosis Clawtoe, acquired Dementia Diabetes Hallux valgus (acquired), right foot Hammertoe of right foot Hyperlipidemia Seizure Family History Family History Father Family history of chronic obstructive pulmonary disease Patient's father is , Onset Age: 82 Diabetes mellitus Family history of hypercholesterolemia Family history of cardiovascular disease Family history of congestive heart failure Mother Family history of dementia Patient's mother is , Onset Age: 82 Diabetes mellitus Family history of hypercholesterolemia Family history of Alzheimer's disease Other Family history of arthritis Social History Social History Smoking packs per day: 2 Smoking cigarettes per day: 40.0 Years smoked: 20 Smoking pack-years: 40.00 Smoking status: Former smoker Tobacco type: cigarettes Second hand tobacco smoke exposure: Yes Smoking end date: 01/25/80 Alcohol intake: never Drinks per week: 6 Alcohol use details: Patient is drinking at least a 12 pack of beer daily. Substance use: never Substance use type: does not use Gender identity (if verbalized by the patient): Male Spiritual care concerns: No Exam Const: General: no acute distress and alert Other: oriented to self and place HENMT: Head: normal to inspection Face and sinus: normal facial exam Mouth: Yes Normal oral and palatal mucosa present Throat: posterior oropharynx normal Eyes: Conjunctivae: conjunctivae normal Pupils: Equal, round and reactive pupils present EOM: EOMs intact rach
== END 2022-02-08 21:13 | disposition home or self-care (01) ==
PROVIDERS: Emergency Provider General Practice; PCP Physician Assistant
DX: S43.005A Unspecified dislocation of left shoulder joint, initial encounter (principal); S09.90XA Unspecified injury of head, initial encounter; S82.892D Other fracture of left lower leg, subsequent encounter for closed fracture with routine healing; I10 Essential (primary) hypertension; E11.9 Type 2 diabetes mellitus without complications; E78.5 Hyperlipidemia, unspecified; G30.9 Alzheimer's disease, unspecified; F02.80 Dementia in other diseases classified elsewhere, unspecified severity, without behavioral disturbance, psychotic disturbance, mood disturbance, and anxiety; Z87.891 Personal history of nicotine dependence; Z79.82 Long term (current) use of aspirin; Z79.84 Long term (current) use of oral hypoglycemic drugs; W01.0XXA Fall on same level from slipping, tripping and stumbling without subsequent striking against object, initial encounter
CPT/HCPCS: 23650; 70450; 72125; 73030; 73610; 96374; 96375; 99285; J1170; J2405

== ENCOUNTER 2022-04-27 17:49 | Emergency (ER) | payer MEDICARE, BC, SELFPAY ==
--- NOTE | ~2022-04-27 | CT_ITS ---
EXAMINATION: CT brain wo con DATE: 04/27/2022 20:30 INDICATION: Syncope. Possible head injury. TECHNIQUE: Computed tomography (CT) of the head was performed without intravenous contrast. Sagittal and coronal reconstructions were performed. The mA was adjusted according to patient size. Iterative reconstruction technique was employed. The dose-length product was 605.33 mGy-cm. COMPARISON: head CT dated 02/08/2022 FINDINGS: No fracture. No acute intracranial hemorrhage, acute infarction or abnormal extra axial fluid collect ion. There is moderate scattered white matter hypoattenuation consistent with chronic small vessel is chemic disease. Symmetric prominence of the sulci and ventricles consistent with moderate age-appropr iate diffuse cerebral volume loss. No mass/mass effect. The orbits, paranasal sinuses and mastoid air cells are normal. IMPRESSION: 1. No fracture or acute intracranial process. 2. Age-related changes including moderate diffuse volume loss and moderate scattered white matter hyp oattenuation consistent with chronic small vessel ischemic disease. Reviewed, dictated and finalized at location A. IMPRESSION: 1. No fracture or acute intracranial process. 2. Age-related changes including moderate diffuse volume loss and moderate scat tered white matter hypoattenuation consistent with chronic small vessel ischemi c disease.
[2022-04-27 17:53] VITALS: BP 160/93; PULSE 66; RESP 16; TEMP 36.6; O2SAT 99
--- NOTE | 2022-04-27 18:59 | ECG_ITS ---
Measurements Intervals [place] Rate: 64 P: 2 ME: 184 QRS: 2 QRSD: 89 T: -10 QT: 404 QTc: 417 Interpretive Statements SINUS RHYTHM VENTRICULAR PREMATURE COMPLEX EARLY PRECORDIAL R/S TRANSITION BORDERLINE ST-T WAVE ABNORMALITY- INFERIOR LEADS BASELINE ARTIFACT- I, III, AVR, AVL BORDERLINE ECG COMPARED TO ECG 01/24/2022 18:39:57 SINUS RHYTHM NOW PRESENT Electronically Signed On 04-27-2022 20:15:39 CDT by Thanh Massey D.O.
[2022-04-27 19:21] LABS: Basophils Percent Auto 0.3 % (0.2-1.2); Eosinophils Absolute Auto 0.1 K/mm3 (0-0.3); Eosinophils Percent Auto 0.7 % (0-4.4); Immature Granulocyte Absolute 0.03 K/mm3 (0.00-0.031); Immature Granulocyte Percent A 0.3 % (0-0.5); Lymphocytes Absolute Auto 3.02 K/mm3 (0.9-3.2); Lymphocytes Percent Auto 31.1 % (18.3-44.2); Mean Corpuscular HGB Conc 33.3 g/dl (32-36); Mean Corpuscular Hemoglobin 32.3 pg (26-34); Mean Corpuscular Volume 96.8 fl (80-100); Mean Platelet Volume 9.8 fl (7.4-10.4); Monocytes Absolute Auto 0.6 K/mm3 (0.1-0.6); Monocytes Percent Auto 6.6 % (2.6-8.5); Neutrophils Absolute Auto 5.9 K/mm3 (1.3-6.7); Platelet Count Result 351 k/mm3 (150-375); Red Blood Count 4.03 M/mm3 (4.6-6.20); Red Cell Distribution Width 12.3 % (11.5-14.5); White Blood Count 9.7 K/mm3 (4.5-10.0)
[2022-04-27 19:31] LABS: Alanine Aminotransferase 15 U/L (6-50); Albumin Level 4.3 g/dL (3.5-5.1); Alkaline Phosphatase 66 U/L (38-126); Anion Gap 14 mmol/L (8-16); Aspartate Amino Transferase 22 U/L (17-59); Bilirubin,Total 0.5 mg/dL (0.2-1.3); Blood Urea Nitrogen 9 mg/dL (9-20); Calcium 8.9 mg/dL (8.4-10.2); Carbon Dioxide 26 mmol/L (22-30); Chloride 98 mmol/L (98-107); Estimated CRCL calculation 47 ml/min; Estimated Glomerular Filt Rate > 60; Glucose 132 mg/dL (65-110); Potassium 3.8 mmol/L (3.4-5.0); Sodium 138 mmol/L (137-145)
--- NOTE | 2022-04-27 19:41 | ED.SYNCOPE ---
HPI - Syncope General Chief Complaint: Syncope Stated Complaint: SYNCOPE AFTER POSITION CHANGE Time Seen by Provider: 04/27/22 19:30 Source: patient, family, EMS and RN notes reviewed Mode of arrival: EMS Limitations: dementia History of Present Illness HPI narrative: This is a 76 year old male with history of dementia, hypertension and anxiety who presents for evaluation of syncopal episode. Nursing reports patient got up too fast and he passed out. Patient is unsure if he passed out. He denies any complaints. He denies headache, dizziness, chest pain , shortness of breath, nausea, vomiting, diarrhea or abdominal pain. His is at bedside and she states this is patient's first episode. He was started on Depakote today for treatment of anxiety per his . She states patient used to take xanax until a few months ago. He has been having increasing issues with anxiety and panic attacks. Related Data Home Medications Medication Instructions Recorded Confirmed aspirin 81 mg tablet,delayed 81 mg PO DAILY 09/17/19 02/17/22 release (Adult Low Dose Aspirin) latanoprost 0.005 % eye drops 1 drop ophthalmic (eye) DAILY 09/17/19 02/17/22 amlodipine 5 mg tablet 5 mg PO DAILY 01/24/22 02/17/22 buspirone 10 mg tablet 10 mg PO BID 01/24/22 02/17/22 metformin 500 mg tablet 500 mg PO BID 01/24/22 02/17/22 quetiapine 25 mg tablet 25 mg PO BID 01/24/22 02/17/22 sertraline 100 mg tablet 150 mg PO DAILY 01/24/22 02/17/22 timolol maleate 0.5 % eye drops 1 drop ophthalmic (eye) QAM 01/24/22 02/17/22 bisacodyl 10 mg rectal suppository 10 mg RECTAL DAILY PRN 02/21/22 cephalexin 500 mg capsule 500 mg PO Q6H 02/21/22 cholecalciferol (vitamin D3) 25 25 mcg PO DAILY 02/21/22 mcg (1,000 unit) capsule gentamicin sulfate ointment 0.1% topical DIRECTED 02/21/22 magnesium citrate (Citroma oral 296 ml PO DAILY PRN 02/21/22 solution) magnesium hydroxide 400 mg/5 mL 5 ml PO DAILY PRN 02/21/22 oral suspension (Milk of Magnesia) sodium phosphates [Fleet Enema RECTAL DIRECTED 02/21/22 Extra] Allergies Allergy/AdvReac Type Severity Reaction Status Date / Time house dust Allergy Unknown sneezing Verified 02/17/22 11:01 Review of Systems Review of Systems: CONSTITUTIONAL: Denies fever, chills, or sweats. EYES: Denies visual changes, redness, or discharge. ENT: Denies rhinorrhea, congestion, sore throat, or otalgia. CARDIOVASCULAR: Denies chest pain, palpitations, or edema. RESPIRATORY: Denies cough or dyspnea. GASTROINTESTINAL: Denies abdominal pain, nausea, vomiting, or diarrhea. GENITOURINARY: Denies dysuria or hematuria. SKIN: Denies rash or itching. MUSCULOSKELETAL: Denies back pain, joint pain, or myalgia. NEUROLOGIC: Denies headache, numbness, or weakness. PSYCHIATRIC: Denies anxiety or depression. All systems reviewed & are unremarkable except as noted in HPI and below PMFSH Past Medical History Medical History (Updated 04/27/22 @ 22:38 by Fior Blackwood MD) Alcohol abuse Alzheimer disease Anxiety Benign essential HTN Cirrhosis Clawtoe, acquired Convulsions Dementia Depression Diabetes Hallux valgus (acquired), right foot Hammertoe of right foot Hyperlipidemia Seizure Vitamin D deficiency Family History Family History Father Family history of chronic obstructive pulmonary disease Patient's father is , Onset Age: 82 Diabetes mellitus Family history of hypercholesterolemia Family history of cardiovascular disease Family history of congestive heart failure Mother Family history of dementia Patient's mother is , Onset Age: 82 Diabetes mellitus Family history of hypercholesterolemia Family history of Alzheimer's disease Other Family history of arthritis Social History Social History Smoking packs per day: 2 Smoking cigarettes per day: 40.0 Years smoked: 20
[2022-04-27 21:13] LABS: Valproic Acid < 10.0 ug/mL (50-120)
[2022-04-27 22:24] VITALS: BP 136/91; BP 139/91; PULSE 62; PULSE 68
[2022-04-27 22:25] VITALS: BP 148/80; PULSE 76
[2022-04-27 23:07] VITALS: BP 145/89; PULSE 67; RESP 20; O2SAT 98
== END 2022-04-27 23:22 | disposition home or self-care (01) ==
PROVIDERS: Emergency Medicine; Emergency Provider General Practice
DX: R55 Syncope and collapse (principal); I10 Essential (primary) hypertension; F41.9 Anxiety disorder, unspecified; G30.9 Alzheimer's disease, unspecified; F02.80 Dementia in other diseases classified elsewhere, unspecified severity, without behavioral disturbance, psychotic disturbance, mood disturbance, and anxiety; E11.9 Type 2 diabetes mellitus without complications; K74.60 Unspecified cirrhosis of liver; E78.5 Hyperlipidemia, unspecified; E55.9 Vitamin D deficiency, unspecified; Z79.84 Long term (current) use of oral hypoglycemic drugs; Z79.82 Long term (current) use of aspirin; Z87.891 Personal history of nicotine dependence; I49.3 Ventricular premature depolarization; R94.31 Abnormal electrocardiogram [ECG] [EKG]
CPT/HCPCS: 36415; 70450; 80053; 80164; 85025; 93005; 99284

== ENCOUNTER 2022-04-29 19:39 | Inpatient (IN) | payer MEDICARE, BC, SELFPAY ==
--- NOTE | ~2022-04-29 | US_ITS ---
EXAMINATION: US carotid duplex BI DATE: 04/30/2022 11:51 INDICATION: Left-sided numbness TECHNIQUE: Grayscale, color Doppler, and pulsed Doppler images of the cervical carotid arteries were obtained. The degree of vessel stenosis is placed in one of the following categories: normal, <50%, 5 0-69%, >=70% but less than near-occlusion, near-occlusion, or total occlusion. Note that percent sten osis relative to normal distal artery lumen diameter is indirectly measured from velocity measurement s as described by Oswaldo, et al. Radiology 2003; 229:340-346. COMPARISON: None. FINDINGS: RIGHT: The right common carotid artery (CCA) peak systolic velocity (PSV) is 67 cm/s. The right internal car otid artery (ICA) PSV is 50 cm/s. The right ICA end-diastolic velocity (EDV) is 17 cm/s. The right IC A/CCA PSV ratio is 0.7. Grayscale and color Doppler images yield an estimate of <50% diameter reducti on from plaque in the ICA. The external carotid artery (ECA) PSV is 52 cm/s. There is antegrade flow in the right vertebral artery. LEFT: The left CCA PSV is 48 cm/s. The left ICA PSV is 55 cm/s. The left ICA EDV is 18 cm/s. The left ICA/C CA PSV ratio is 1.1. Grayscale and color Doppler images yield an estimate of <50% diameter reduction from plaque in the ICA. The ECA PSV is 63 cm/s. There is antegrade flow in the left vertebral artery. IMPRESSION: 1. <50% stenosis in the right internal carotid artery. 2. <50% stenosis in the left internal carotid artery. Reviewed, dictated and finalized at location A.
--- NOTE | ~2022-04-29 | XR_ITS ---
EXAMINATION: XR chest 1V portable Exam Date/Time: 04/29/2022 19:45 CDT HISTORY: BILATERAL HAND NUMBNESS. HX BENIGN ESSENTIAL HTN Comparison: 01/24/2022. RESULT: Lines, tubes, and devices: Incompletely visualized cervical fusion hardware. Lungs and pleura: Senescent change. Cardiomediastinal silhouette: Stable. Other: No acute osseous or upper abdominal finding. IMPRESSION: No acute cardiopulmonary process. Reviewed, dictated and finalized at location K.
--- NOTE | ~2022-04-29 | MR_ITS ---
EXAMINATION: MR brain/brain stem wo/w con DATE: 04/30/2022 12:50 INDICATION: Left-sided numbness. TECHNIQUE: Magnetic resonance imaging (MRI) of the brain and brainstem was performed without and with 17 mL MultiHance intravenous contrast. COMPARISON: Head CT 04/29/2022, 02/08/2022 FINDINGS: There is no acute ischemic infarct. There is chronic encephalomalacia in right frontopariet al region with old blood products. There are scattered areas of nonspecific increased T2-weighted sig nal intensity in the cerebral white matter and randell. There is a 6 mm lesion of cortical enhancement i n left frontal lobe. The ventricles are normal in size. The paranasal sinuses are clear. The orbits a re normal. The mastoid air cells are normal. IMPRESSION: 1. 6 mm lesion of cortical enhancement in left frontal lobe, most likely a subacute infarct. Brain MR I without and with contrast is recommended in 3 months to exclude malignancy. 2. Chronic encephalomalacia in right frontoparietal region with old blood products. 3. Moderate nonspecific cerebral white matter disease and pontine disease, which likely represents ch ronic small vessel ischemic disease. Reviewed, dictated and finalized at location A. IMPRESSION: 1. 6 mm lesion of cortical enhancement in left frontal lobe, most likely a suba cute infarct. Brain MRI without and with contrast is recommended in 3 months to exclude malignancy. 2. Chronic encephalomalacia in right frontoparietal region with old blood produ cts. 3. Moderate nonspecific cerebral white matter disease and pontine disease, whic h likely represents chronic small vessel ischemic disease.
--- NOTE | ~2022-04-29 | CT_ITS ---
EXAMINATION: CT brain wo con DATE: 04/29/2022 20:49 INDICATION: r side facial numbness that has resolved, bilat hand numbnes . TECHNIQUE: Computed tomography (CT) of the head was performed without intravenous contrast. The mA wa s adjusted according to patient size. Iterative reconstruction technique was employed. The dose-lengt h product was 605.33 mGy-cm. COMPARISON: 04/27/2022 FINDINGS: No acute intracranial hemorrhage or extra-axial fluid collection. No hydrocephalus, mass, or herniation. No acute ischemic infarct. Unremarkable dural venous sinus attenuation. No acute osseous abnormality. The aerated spaces are clear. Moderate atrophy. Severe chronic white matter change. Atherosclerotic intracranial calcifications. IMPRESSION: No acute intracranial process. Reviewed, dictated and finalized at location K.
[2022-04-29 19:38] VITALS: BP 137/80; PULSE 65; RESP 17; TEMP 36.6; O2SAT 99
--- NOTE | 2022-04-29 19:45 | ECG_ITS ---
Measurements Intervals [place] Rate: 62 P: 15 AL: 182 QRS: 9 QRSD: 85 T: -15 QT: 420 QTc: 427 Interpretive Statements SINUS RHYTHM WITH OCCASIONAL VENTRICULAR PREMATURE COMPLEXES ST-T WAVE ABNORMALITY IN INFERIOR LEADS COMPARED TO ECG 04/27/2022 19:07:51 NO SIGNIFICANT CHANGES Electronically Signed On 04-30-2022 17:41:47 CDT by Pratik Norris M.D.
--- NOTE | 2022-04-29 19:46 | ED.GENADULT ---
HPI - General Adult General Chief complaint: Extremity Problem,Nontraumatic Stated complaint: numbness to both hands Source: RN notes reviewed History of Present Illness HPI narrative: Patient presents emergency department from [facility] via EMS for left-sided numbness. Patient states symptoms began approximately 1 PM today he states he noticed numbness in his left face as well and is in his left arm he states he has been having numbness in his bilateral fingertips over the past week but the facial numbness left arm numbness was new. He states that his numbness is improved at this time. He denies any extremity weakness during this time he denies any difficulty speaking or dizziness he denies any chest pain or shortness of breath. Patient states that he had no trouble eating or drinking Related Data Home Medications Medication Instructions Recorded Confirmed aspirin 81 mg tablet,delayed 81 mg PO DAILY 09/17/19 02/17/22 release (Adult Low Dose Aspirin) latanoprost 0.005 % eye drops 1 drop ophthalmic (eye) DAILY 09/17/19 02/17/22 amlodipine 5 mg tablet 5 mg PO DAILY 01/24/22 02/17/22 buspirone 10 mg tablet 10 mg PO BID 01/24/22 02/17/22 metformin 500 mg tablet 500 mg PO BID 01/24/22 02/17/22 quetiapine 25 mg tablet 25 mg PO BID 01/24/22 02/17/22 sertraline 100 mg tablet 150 mg PO DAILY 01/24/22 02/17/22 timolol maleate 0.5 % eye drops 1 drop ophthalmic (eye) QAM 01/24/22 02/17/22 bisacodyl 10 mg rectal suppository 10 mg RECTAL DAILY PRN 02/21/22 cephalexin 500 mg capsule 500 mg PO Q6H 02/21/22 cholecalciferol (vitamin D3) 25 25 mcg PO DAILY 02/21/22 mcg (1,000 unit) capsule gentamicin sulfate ointment 0.1% topical DIRECTED 02/21/22 magnesium citrate (Citroma oral 296 ml PO DAILY PRN 02/21/22 solution) magnesium hydroxide 400 mg/5 mL 5 ml PO DAILY PRN 02/21/22 oral suspension (Milk of Magnesia) sodium phosphates [Fleet Enema RECTAL DIRECTED 02/21/22 Extra] Allergies Allergy/AdvReac Type Severity Reaction Status Date / Time house dust Allergy Unknown sneezing Verified 02/17/22 11:01 Review of Systems Review of Systems: Gen.: Denies fevers or chills Eyes: Denies eye pain or visual change ENT: Denies congestion Respiratory: Denies shortness of breath or cough CV: Denies chest pain or palpitations GI: Denies abdominal pain nausea, emesis or diarrhea Musculoskeletal: Denies back pain or muscle pain Neuro: See HPI Skin: Denies rash Except as documented, all other systems reviewed and negative [facility] Past Medical History Medical History Alcohol abuse Alzheimer disease Anxiety Benign essential HTN Cirrhosis Clawtoe, acquired Convulsions Dementia Depression Diabetes Hallux valgus (acquired), right foot Hammertoe of right foot Hyperlipidemia Seizure Vitamin D deficiency Family History Family History Father Family history of chronic obstructive pulmonary disease Patient's father is , Onset Age: 82 Diabetes mellitus Family history of hypercholesterolemia Family history of cardiovascular disease Family history of congestive heart failure Mother Family history of dementia Patient's mother is , Onset Age: 82 Diabetes mellitus Family history of hypercholesterolemia Family history of Alzheimer's disease Other Family history of arthritis Social History Social History Smoking packs per day: 2 Smoking cigarettes per day: 40.0 Years smoked: 20 Smoking pack-years: 40.00 Smoking status: Former smoker Tobacco type: cigarettes Second hand tobacco smoke exposure: Yes Smoking end date: 01/25/80 Alcohol intake: never Drinks per week: 6 Alcohol use details: Patient is drinking at least a 12 pack of beer daily. Substance use: never Substance use type: does not use Gender identity (if verbali
[2022-04-29 19:56] LABS: Glucose Point of Care 107 mg/dl (65-105)
[2022-04-29 19:57] VITALS: PULSE 65; RESP 17; O2SAT 97
[2022-04-29 20:09] LABS: Basophils Percent Auto 0.4 % (0.2-1.2); Eosinophils Absolute Auto 0.2 K/mm3 (0-0.3); Eosinophils Percent Auto 2.2 % (0-4.4); Hematocrit 38.4 % (42.0-52.0); Hemoglobin 13.1 g/dL (14.0-18.0); Immature Granulocyte Absolute 0.02 K/mm3 (0.00-0.031); Immature Granulocyte Percent A 0.2 % (0-0.5); Lymphocytes Absolute Auto 2.77 K/mm3 (0.9-3.2); Lymphocytes Percent Auto 34.3 % (18.3-44.2); Mean Corpuscular HGB Conc 34.1 g/dl (32-36); Mean Corpuscular Hemoglobin 32.8 pg (26-34); Mean Corpuscular Volume 96.2 fl (80-100); Mean Platelet Volume 9.6 fl (7.4-10.4); Monocytes Absolute Auto 0.7 K/mm3 (0.1-0.6); Monocytes Percent Auto 8.3 % (2.6-8.5); Neutrophils Absolute Auto 4.4 K/mm3 (1.3-6.7); Neutrophils Percent Auto 54.6 % (45.5-73.1); Platelet Count Result 345 k/mm3 (150-375); Red Blood Count 3.99 M/mm3 (4.6-6.20); Red Cell Distribution Width 12.3 % (11.5-14.5); White Blood Count 8.1 K/mm3 (4.5-10.0)
[2022-04-29 20:19] LABS: Alanine Aminotransferase 15 U/L (6-50); Alkaline Phosphatase 60 U/L (38-126); Anion Gap 8 mmol/L (8-16); Aspartate Amino Transferase 21 U/L (17-59); Bilirubin,Total 0.5 mg/dL (0.2-1.3); Blood Urea Nitrogen 14 mg/dL (9-20); Calcium 8.5 mg/dL (8.4-10.2); Carbon Dioxide 25 mmol/L (22-30); Chloride 101 mmol/L (98-107); Estimated CRCL calculation 55 ml/min; Estimated Glomerular Filt Rate > 60; Glucose 101 mg/dL (65-110); Sodium 134 mmol/L (137-145)
[2022-04-29 20:21] LABS: INR 1.1; Prothrombin Time 14.1 Seconds (11.1-14.7)
[2022-04-29 20:22] LABS: Partial Thromboplastin Time 24.1 SECONDS (22.3-36.8)
[2022-04-29 20:30] LABS: Troponin I < 0.012 ng/mL (0.000-0.034)
[2022-04-29 21:48] LABS: Valproic Acid 25.7 ug/mL (50-120)
[2022-04-29 22:21] VITALS: BP 112/76; PULSE 65; RESP 14; O2SAT 98
[2022-04-29] MEDS: ASPIRIN 81 MG CHEWABLE TABLET 324 MG PO (22:40)
[2022-04-29 22:58] VITALS: BP 109/71; PULSE 64; RESP 15; O2SAT 100
[2022-04-29 23:30] VITALS: BP 135/82; PULSE 65; RESP 19; O2SAT 98
[2022-04-29 23:38] VITALS: BMI 30.2
[2022-04-29 23:40] VITALS: BP 127/94; PULSE 61; RESP 16; TEMP 37.1; O2SAT 98
[2022-04-29 23:53] VITALS: BMI 29.2
--- NOTE | 2022-04-29 23:53 | ADMGEN ---
This patient, Zohaib Villalobos, was admitted to Medical Room 251-01. Patient/family oriented to hospital policies and general routines including ID bracelet, bed and alarms, visiting hours, pain management, procedures, bathroom and other care routines, personal items, smoking policy, room service/diet, and visiting hours. Information on how to activate the Rapid Response Team has been discussed. Patient/Family are encouraged to report perceived risks to care and to ask questions if they do not understand what they are told or what they should do.
[2022-04-30] VITALS (7 sets, daily range): BP systolic 133–151; BP diastolic 73–88; PULSE 60–87; RESP 18–20; TEMP 36.6–36.7; O2SAT 93–98
[2022-04-30 01:54] LABS: Troponin I < 0.012 ng/mL (0.000-0.034)
[2022-04-30 05:10] LABS: Basophils Percent Auto 0.4 % (0.2-1.2); Eosinophils Absolute Auto 0.2 K/mm3 (0-0.3); Eosinophils Percent Auto 2.3 % (0-4.4); Hematocrit 39.2 % (42.0-52.0); Immature Granulocyte Absolute 0.02 K/mm3 (0.00-0.031); Immature Granulocyte Percent A 0.3 % (0-0.5); Lymphocytes Absolute Auto 2.74 K/mm3 (0.9-3.2); Lymphocytes Percent Auto 34.7 % (18.3-44.2); Mean Corpuscular HGB Conc 33.2 g/dl (32-36); Mean Corpuscular Hemoglobin 32.2 pg (26-34); Monocytes Absolute Auto 0.6 K/mm3 (0.1-0.6); Monocytes Percent Auto 7.1 % (2.6-8.5); Neutrophils Absolute Auto 4.4 K/mm3 (1.3-6.7); Neutrophils Percent Auto 55.2 % (45.5-73.1); Platelet Count Result 280 k/mm3 (150-375); Red Blood Count 4.04 M/mm3 (4.6-6.20); Red Cell Distribution Width 12.3 % (11.5-14.5); White Blood Count 7.9 K/mm3 (4.5-10.0)
[2022-04-30 06:00] LABS: Troponin I 0.012 ng/mL (0.000-0.034)
[2022-04-30 06:43] LABS: Anion Gap 7 mmol/L (8-16); Blood Urea Nitrogen 10 mg/dL (9-20); Calcium 8.4 mg/dL (8.4-10.2); Carbon Dioxide 27 mmol/L (22-30); Chloride 104 mmol/L (98-107); Estimated CRCL calculation 55 ml/min; Estimated Glomerular Filt Rate > 60; Glucose 86 mg/dL (65-110); Potassium 3.8 mmol/L (3.4-5.0); Sodium 138 mmol/L (137-145)
[2022-04-30 09:17] LABS: Magnesium 2.4 mg/dL (1.6-2.3)
[2022-04-30 09:35] LABS: Vitamin D 25 Hydroxy 29.3 ng/mL
--- NOTE | 2022-04-30 12:47 | PM.IMHP ---
H&P: HPI History of Present Illness Date/Time: 04/30/22 12:47 Chief Complaint: Left facial and left arm numbness Narrative: Zohaib Villalobos 76 yo male with non-insulin dependent diabetes mellitus, dementia, seizure disorder, liver cirrhosis, hypertension, and hyperlipidemia who [facility] for evaluation of left-sided facial numbness and left arm numbness. The patient is forgetful and not a good historian. Most information was obtained from ED and primary medical records. The facial numbness reportedly started at approximately 1300 on 04/29/22 and localized to the left side of his face and left arm. He had also reported numbness to both fingertips for a week prior to this. He reportedly had no changes in speech, word finding, unilateral extremity weakness, gait changes, chest pain, palpitations or shortness of breath. Upon arrival to the ED, the patient's symptoms had resolved. Today, he denies return of symptoms. In the ED, his vitals were stable. Head CT was negative for acute bleed or infarct. Chest x-ray was negative for acute disease. EKG showed sinus rhythm with occasional PVCs and nonspecific T-wave changes in leads III and aVF. Lab work showed mildly decreased sodium 134, but otherwise normal CBC and CMP. He had negative troponin x3. Of note, the patient was seen in our ED on 04/27/22 for evaluation of syncope and head CT at that time showed no acute disease but moderate small vessel disease. Review of Systems Review of Systems: All systems reviewed & are unremarkable except as noted in HPI and below PMFSH Past Medical History Medical History (Updated 04/30/22 @ 13:38 by Lizzy Jiménez APRN) Alcohol abuse Alzheimer disease Anxiety Benign essential HTN Cirrhosis Clawtoe, acquired Convulsions Dementia Depression Diabetes Hallux valgus (acquired), right foot Hammertoe of right foot Hyperlipidemia Seizure Vitamin D deficiency Surgical History Surgical History (Updated 04/30/22 @ 13:08 by Lizzy Jiménez APRN) H/O hernia repair Status post open reduction with internal fixation (ORIF) of fracture of ankle 02/02/22 left ankle bimalleolar fracture with ORIF left ankle syndesmosis Family History Family History Father Family history of chronic obstructive pulmonary disease Patient's father is , Onset Age: 82 Diabetes mellitus Family history of hypercholesterolemia Family history of cardiovascular disease Family history of congestive heart failure Mother Family history of dementia Patient's mother is , Onset Age: 82 Diabetes mellitus Family history of hypercholesterolemia Family history of Alzheimer's disease Other Family history of arthritis Social History Social History Smoking packs per day: 2 Smoking cigarettes per day: 40.0 Years smoked: 20 Smoking pack-years: 40.00 Smoking status: Never smoker Tobacco type: cigarettes Second hand tobacco smoke exposure: Yes Smoking end date: 01/25/80 Alcohol intake: current Drinks per week: 3 Alcohol use details: Patient is drinking at least a 12 pack of beer daily. Substance use: never Substance use type: does not use Gender identity (if verbalized by the patient): Male Spiritual care concerns: No Meds Home Medications and Allergies Home Medications Medication Instructions Recorded Confirmed Type aspirin 81 mg tablet,delayed 81 mg PO DAILY 09/17/19 04/30/22 History release (Adult Low Dose Aspirin) latanoprost 0.005 % eye drops 1 drop ophthalmic (eye) DAILY 09/17/19 04/30/22 History amlodipine 5 mg tablet 5 mg PO DAILY 01/24/22 04/30/22 History buspirone 10 mg tablet 10 mg PO BID 01/24/22 04/30/22 History metformin 500 mg tablet 500 mg PO BID 01/24/22 04/30/22 History quetiapine 25 mg tablet 25 mg PO BID 01/24/22 04/30/22 History sertraline 100
[2022-04-30 15:28] LABS: Ammonia 13 umol/L (9-30)
[2022-04-30] MEDS: busPIRone HCL 10 MG TABLET PO (15:42)
[2022-04-30] MEDS: QUEtiapine FUMARATE 25 MG TABLET PO (15:42)
[2022-04-30] MEDS: LORazepam (*CRX) 0.5 MG TABLET PO ×2 (16:48→22:29)
[2022-04-30 16:52] LABS: Glucose Point of Care 114 mg/dl (65-105)
[2022-04-30] MEDS: DONEPEZIL HCL 5 MG TABLET PO (20:28)
[2022-04-30] MEDS: LATANOPROST 0.005% OP SOLN 2.5 ML BTL 1 DROP EACH EYE (20:28)
[2022-04-30] MEDS: FAMOTIDINE 20 MG TABLET PO (20:28)
[2022-04-30 21:09] LABS: Glucose Point of Care 109 mg/dl (65-105)
--- NOTE | 2022-05-01 | ECHO_ITS ---
Patient Info Name: Zohaib Villalobos Age: 76 years : 1945 Gender: Male Ht: 68 in Wt: 192 lbs BSA: 2.07 m2 HR: 59 bpm BP: 144 / 73 mmHg Heart Rhythm: Sinus Rhythm Exam Date: 05/01/2022 9:16 AM Exam Location: [facility] Patient Status: Inpatient Admit Date: 04/29/2022 Staff Ordering Physician: Lizzy Jiménez APRN Unified Communications Engineer: Carlos Lebron RDCS, RT Attending Provider: Blanca Gill DO Referring Physician: Jessy COHN; Exam Type: CA echo doppler w bubble study Study Info Indications G45.8 - Other transient cerebral ischemic attacks and related syndromes Complete two-dimensional, color flow and Doppler transthoracic echocardiogram is performed with agitated saline. Strain analysis performed. Summary 1. Left ventricular chamber dimension is normal. 2. Left ventricular systolic function is normal, estimated at 60-65%. 3. Left atrial chamber dimension is mildly enlarged. 4. Agitated saline injection demonstrates no intracardiac shunt. Left Ventricle Left ventricular chamber dimension is normal. Left ventricular systolic function is normal, estimated at 60-65%. The left ventricular diastolic function is grade I diastolic dysfunction. Right Ventricle Right ventricular chamber dimension is normal. Left Atria Left atrial chamber dimension is mildly enlarged. Right Atria Right atrial chamber dimension is normal. Atrial Septum Intact interatrial septum visualized by agitated saline imaging. Agitated saline injection demonstrates no intracardiac shunt. Aortic Valve The aortic valve is normal. Pulmonic Valve The pulmonic valve is not well visualized. Mitral Valve The mitral valve has normal leaflets. Tricuspid Valve The tricuspid valve leaflets are normal. Pericardium/Pleural The pericardium appears normal. Aorta The aortic root size at the sinus of Valsalva is normal. Left Ventricular Outflow Tract Name Value Normal LVOT 2D LVOT Diameter 2.2 cm LVOT Doppler LVOT Peak Gradient 3 mmHg LVOT Mean Gradient 2 mmHg LVOT VTI 19 cm LVOT VTI/AV VTI Ratio 0.8 LVOT Stroke Volume 73 ml LVOT CO 4.2 l/min LVOT CI 2.0 l/min/m2 Mitral Valve Name Value Normal MV Doppler MV Decel [place] 286 cm/s2 MV PHT 58 ms MV Area (PHT) 3.8 cm2 4.0-5.0 MV Diastolic Function MV E Peak Velocity 57 cm/s MV A Peak Velocity 61 cm/s MV E/A 0.9 MV Decel Time
[2022-05-01 06:08] LABS: Hematocrit 38.4 % (42.0-52.0); Hemoglobin 12.7 g/dL (14.0-18.0); Mean Corpuscular HGB Conc 33.1 g/dl (32-36); Mean Corpuscular Hemoglobin 31.8 pg (26-34); Mean Corpuscular Volume 96.2 fl (80-100); Mean Platelet Volume 10.1 fl (7.4-10.4); Platelet Count Result 301 k/mm3 (150-375); Red Blood Count 3.99 M/mm3 (4.6-6.20); Red Cell Distribution Width 12.1 % (11.5-14.5); White Blood Count 8.1 K/mm3 (4.5-10.0)
[2022-05-01 06:42] LABS: Alanine Aminotransferase 13 U/L (6-50); Albumin Level 3.8 g/dL (3.5-5.1); Alkaline Phosphatase 59 U/L (38-126); Anion Gap 8 mmol/L (8-16); Aspartate Amino Transferase 19 U/L (17-59); Bilirubin,Total 0.4 mg/dL (0.2-1.3); Blood Urea Nitrogen 11 mg/dL (9-20); Calcium 8.6 mg/dL (8.4-10.2); Carbon Dioxide 26 mmol/L (22-30); Chloride 103 mmol/L (98-107); Cholesterol 136 mg/dL (0-200); Estimated CRCL calculation 55 ml/min; Estimated Glomerular Filt Rate > 60; Glucose 81 mg/dL (65-110); HDL Direct 33 mg/dL; Potassium 3.6 mmol/L (3.4-5.0); Sodium 137 mmol/L (137-145); Triglycerides 92 mg/dL (<150)
[2022-05-01 06:53] LABS: LDL Cholesterol Direct 81 mg/dL
[2022-05-01] MEDS: busPIRone HCL 10 MG TABLET PO ×2 (08:31→16:10)
[2022-05-01] MEDS: ASPIRIN 81 MG ENTERIC TABLET PO (08:31)
[2022-05-01] MEDS: ATORVASTATIN 10 MG TABLET PO (08:31)
[2022-05-01] MEDS: amLODIPine BESYLATE 5 MG TABLET PO (08:31)
[2022-05-01] MEDS: CHOLECALCIFEROL 1,000 UNITS TABLET 2000 UNITS PO (08:32)
[2022-05-01] MEDS: FAMOTIDINE 20 MG TABLET PO ×2 (08:32→21:08)
[2022-05-01] MEDS: SENNA/DOCUSATE SODIUM TABLET 2 TAB PO ×2 (08:32→16:11)
[2022-05-01] MEDS: TIMOLOL MALEATE 0.5% OP SOLN 5 ML BOTTLE 1 DROP EACH EYE (08:33)
[2022-05-01] MEDS: QUEtiapine FUMARATE 25 MG TABLET PO ×2 (08:33→16:10)
[2022-05-01] MEDS: SERTRALINE HCL 50 MG TABLET PO (08:33)
[2022-05-01 08:37] LABS: Glucose Point of Care 94 mg/dl (65-105)
[2022-05-01 11:52] LABS: Glucose Point of Care 95 mg/dl (65-105)
--- NOTE | 2022-05-01 12:48 | WPDNEURCNPN ---
Assessment and Plan Assessment and plan (1) TIA (transient ischemic attack): Code(s): G45.9 - Transient cerebral ischemic attack, unspecified Status: Acute Plan in addition to the ongoing history of multiple problems as outlined above, the symptomatology could be related to transient ischemic attack even though considering his history of chronic alcoholism and diabetes mellitus the symptomatology also be related to the neuropathy with possibility of carpal tunnel syndrome MRI of the brain has been obtained which revealed chronic encephalomalacia in the frontoparietal region old blood products again raising the possibility of the focal lesion with possibility of the unwitnessed seizure as well. Additionally he has been noted to have 6mm lesion of the cortical enhancement in the left frontal lobe which could very well be subacute infarct but the repeated studies necessary rule out the possibility of any malignancy. We will obtain the EEG as mentioned above and carotid Doppler study is negative Consult date: 05/01/22 Time Seen: 11:00 Reason for consult: numbness HPI: Zohaib Villalobos is a 76 year old male admitted to the hospital through the emergency room where he was sent via EMS from [facility] for the complaints of numbness of the left side which started around 1:00 p.m. involving the left side of the face, left upper extremity in addition to the history of numbness of both hands finger tips over the last 1 week by the time he came to the emergency room numbness was gone. Patient has been taking multiple medications which included aspirin 81 mg daily, metformin 500 mg twice a day, Seroquel 25 mg twice a day, sertraline 150 mg daily. Patient does have ongoing history of 1 Alzheimer's disease 2 doses 3 dementia for depression 5 diabetes mellitus 6 seizure disorder and 7 alcohol abuse. He is a former smoker with 40 smoking pack years, evaluation in the emergency room revealed normal vital signs, normal routine labs, sodium of 134 negative, CT scan of the head negative, x-ray of the chest , l EKG Review of Systems Review of Systems: All systems reviewed & are unremarkable except as noted in HPI and below [facility] Past Medical History Medical History (Updated 04/30/22 @ 13:38 by Lizzy Jiménez APRN) Alcohol abuse Alzheimer disease Anxiety Benign essential HTN Cirrhosis Clawtoe, acquired Convulsions Dementia Depression Diabetes Hallux valgus (acquired), right foot Hammertoe of right foot Hyperlipidemia Seizure Vitamin D deficiency Surgical History Surgical History (Updated 04/30/22 @ 13:08 by Lizzy Jiménez APRN) H/O hernia repair Status post open reduction with internal fixation (ORIF) of fracture of ankle 02/02/22 left ankle bimalleolar fracture with ORIF left ankle syndesmosis Family History Family History Father Family history of chronic obstructive pulmonary disease Patient's father is , Onset Age: 82 Diabetes mellitus Family history of hypercholesterolemia Family history of cardiovascular disease Family history of congestive heart failure Mother Family history of dementia Patient's mother is , Onset Age: 82 Diabetes mellitus Family history of hypercholesterolemia Family history of Alzheimer's disease Other Family history of arthritis Social History Social History Smoking packs per day: 2 Smoking cigarettes per day: 40.0 Years smoked: 20 Smoking pack-years: 40.00 Smoking status: Never smoker Tobacco type: cigarettes Second hand tobacco smoke exposure: Yes Smoking end date: 01/25/80 Alcohol intake: current Drinks per week: 3 Alcohol use details: Patient is drinking at least a 12 pack of beer daily. Substance use: never Substance use type: does not use Gender identity (if verbalized by the patient): Male Spiritual care concerns:
--- NOTE | 2022-05-01 13:32 | P.PNIM_ITS ---
Progress Note: A&P Assessment and Plan (1) TIA (transient ischemic attack): Code(s): G45.9 - Transient cerebral ischemic attack, unspecified Status: Acute Assessment and Plan: Presented with left facial and left arm numbness. H/O alcohol abuse and [id number] smoking history. Comorbid hypertension, type 2 diabetes mellitus, hyperlipidemia and recent documented COVID19 positive 03/06/22 (per care home notes.) * CT head negative for acute bleeding or infarct * MRI brain- shows 1.6 mm lesion of cortical enhancement in left frontal lobe, most likely a subacute infarct. Brain MRI without and with contrast is recommended in 3 months to exclude malignancy. Chronic encephalomalacia in right frontoparietal region with old blood products that may be secondary lesion or seizure. * Carotid ultrasound <50% stenosis bilateral ICA * Transthoracic echocardiogram with bubble study pending * EKG with nonspecific T-wave changes, troponin negative x3. * Continue aspirin, lipitor, and amlodipine * A1c 5% and stable. * lipid panel - LDL 81, HDL 33, limited use of statin due to liver cirrhosis. * TSH 2.9 * B12 920 and folate 12.2 on 02/10/22 * Monitor neuro status. Control for hypertension and hyperglycemia. * Neurology consulted and appreciate recommendations- recommending EEG which is pending. * PT/OT consulted. (2) Diabetes: Qualifiers: Diabetes mellitus type: type 2 Diabetes mellitus intermodal truck driver insulin use: without alf use Diabetes mellitus complication status: without complication Qualified Code(s): E11.9 - Type 2 diabetes mellitus without complications Code(s): E11.9 - Type 2 diabetes mellitus without complications Status: Chronic Assessment and Plan: Chronic, stable. non-insulin dependent, A1c 5% * Hold metformin while inpatient * Accu-checks AC/HS with aspart low-dose meal correction. Consider DC'ing if glucose <150 mg/dL x24 hours * Hypoglycemia protocol (3) Cirrhosis: Qualifiers: Hepatic cirrhosis type: alcoholic cirrhosis Ascites presence: without ascites Qualified Code(s): K70.30 - Alcoholic cirrhosis of liver without ascites Code(s): K74.60 - Unspecified cirrhosis of liver Status: Chronic Assessment and Plan: Chronic, presumed secondary to alcohol abuse, compensated. * ammonia level 13 * LFTs within normal limits. * on statin for above. lipid panel as above (4) Benign essential HTN: Code(s): I10 - Essential (primary) hypertension Status: Chronic Assessment and Plan: Chronic, stable * continue amlodipine * Avoid hypotension (5) Hyperlipidemia: Qualifiers: Hyperlipidemia type: mixed hyperlipidemia Qualified Code(s): E78.2 - Mixed hyperlipidemia Code(s): E78.5 - Hyperlipidemia, unspecified Status: Chronic Assessment and Plan: Chronic, stable, * continue low dose lipitor. * lipid panel as above. (6) Alzheimer disease: Code(s): G30.9 - Alzheimer's disease, unspecified; F02.80 - Dementia in other diseases classified elsewhere, unspecified severity, without behavioral disturbance, p sychotic disturbance, mood disturbance, and anxiety Status: Chronic Assessment and Plan: Chronic, stable, no behavioral disturbances noted. * Continue donepezil * [place] as needed. * Continue buspirone and sertraline for depression. * Delirium protocol - keep awake during the day, ambulate 3 times daily, natural light, open blinds, minimize sleep disturbances at night, avoid sedating
--- NOTE | 2022-05-01 13:32 | PM.IMPN ---
Progress Note: A&P Assessment and Plan (1) TIA (transient ischemic attack): Code(s): G45.9 - Transient cerebral ischemic attack, unspecified Status: Acute Assessment and Plan: Presented with left facial and left arm numbness. H/O alcohol abuse and [id number] smoking history. Comorbid hypertension, type 2 diabetes mellitus, hyperlipidemia and recent documented COVID19 positive 03/06/22 (per [facility].) CT head negative for acute bleeding or infarct MRI brain- shows 1.6 mm lesion of cortical enhancement in left frontal lobe, most likely a subacute infarct. Brain MRI without and with contrast is recommended in 3 months to exclude malignancy. Chronic encephalomalacia in right frontoparietal region with old blood products that may be secondary lesion or seizure. Carotid ultrasound <50% stenosis bilateral ICA Transthoracic echocardiogram with bubble study pending EKG with nonspecific T-wave changes, troponin negative x3. Continue aspirin, lipitor, and amlodipine A1c 5% and stable. lipid panel - LDL 81, HDL 33, limited use of statin due to liver cirrhosis. TSH 2.9 B12 920 and folate 12.2 on 02/10/22 Monitor neuro status. Control for hypertension and hyperglycemia. Neurology consulted and appreciate recommendations- recommending EEG which is pending. PT/OT consulted. (2) Diabetes: Qualifiers: Diabetes mellitus type: type 2 Diabetes mellitus petroleum terminal plant operator insulin use: without care home use Diabetes mellitus complication status: without complication Qualified Code(s): E11.9 - Type 2 diabetes mellitus without complications Code(s): E11.9 - Type 2 diabetes mellitus without complications Status: Chronic Assessment and Plan: Chronic, stable. non-insulin dependent, A1c 5% Hold metformin while inpatient Accu-checks AC/HS with aspart low-dose meal correction. Consider DC'ing if glucose <150 mg/dL x24 hours Hypoglycemia protocol (3) Cirrhosis: Qualifiers: Hepatic cirrhosis type: alcoholic cirrhosis Ascites presence: without ascites Qualified Code(s): K70.30 - Alcoholic cirrhosis of liver without ascites Code(s): K74.60 - Unspecified cirrhosis of liver Status: Chronic Assessment and Plan: Chronic, presumed secondary to alcohol abuse, compensated. ammonia level 13 LFTs within normal limits. on statin for above. lipid panel as above (4) Benign essential HTN: Code(s): I10 - Essential (primary) hypertension Status: Chronic Assessment and Plan: Chronic, stable continue amlodipine Avoid hypotension (5) Hyperlipidemia: Qualifiers: Hyperlipidemia type: mixed hyperlipidemia Qualified Code(s): E78.2 - Mixed hyperlipidemia Code(s): E78.5 - Hyperlipidemia, unspecified Status: Chronic Assessment and Plan: Chronic, stable, continue low dose lipitor. lipid panel as above. (6) Alzheimer disease: Code(s): G30.9 - Alzheimer's disease, unspecified; F02.80 - Dementia in other diseases classified elsewhere, unspecified severity, without behavioral disturbance, psychotic disturbance, mood disturbance, and anxiety Status: Chronic Assessment and Plan: Chronic, stable, no behavioral disturbances noted. Continue donepezil [place] as needed. Continue buspirone and sertraline for depression. Delirium protocol - keep awake during the day, ambulate 3 times daily, natural light, open blinds, minimize sleep disturbances at night, avoid sedating medications, orient as needed. Plan CODE STATUS: DNR Disposition: return to SNF GI prophylaxis: home famotidine PO Bowel regimen: home senna with PRN miralax. Time Spent With Patient Time with patient: 15 - 25 minutes Subjective Date/time seen: 05/01/22 13:32 Patient sitting up in bed sleeping. He arouses easily. He reports intermittent left facial numbness at the corner of his upper and lower lip
[2022-05-01 14:00] VITALS: BP 134/81; PULSE 66; RESP 18; TEMP 36.5; O2SAT 99
[2022-05-01] MEDS: LORazepam (*CRX) 0.5 MG TABLET PO ×2 (14:56→21:08)
[2022-05-01 17:00] LABS: Glucose Point of Care 105 mg/dl (65-105)
--- NOTE | 2022-05-01 17:27 | PC.NURSE ---
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 Salesperson [employer] able to get pt to go back to chair and sit down and alarm was reassembled. Pt is very admit that he does not want that damn thing going off , pt want to be able to get up and move around when he wants, educated pt on safety.
[2022-05-01] MEDS: LATANOPROST 0.005% OP SOLN 2.5 ML BTL 1 DROP EACH EYE (21:08)
[2022-05-01] MEDS: DONEPEZIL HCL 5 MG TABLET PO (21:09)
[2022-05-01 21:17] LABS: Glucose Point of Care 90 mg/dl (65-105)
[2022-05-01 21:56] VITALS: BP 118/64; PULSE 68; RESP 20; TEMP 36.2; O2SAT 98
[2022-05-02 05:58] VITALS: BP 121/73; PULSE 65; RESP 18; TEMP 36.2; O2SAT 96
[2022-05-02 08:00] LABS: Glucose Point of Care 77 mg/dl (65-105)
[2022-05-02] MEDS: CHOLECALCIFEROL 1,000 UNITS TABLET 2000 UNITS PO (08:02)
[2022-05-02] MEDS: amLODIPine BESYLATE 5 MG TABLET PO (08:02)
[2022-05-02] MEDS: ATORVASTATIN 10 MG TABLET PO (08:03)
[2022-05-02] MEDS: SENNA/DOCUSATE SODIUM TABLET 2 TAB PO ×2 (08:03→16:06)
[2022-05-02] MEDS: ASPIRIN 81 MG ENTERIC TABLET PO (08:03)
[2022-05-02] MEDS: SERTRALINE HCL 50 MG TABLET PO (08:03)
[2022-05-02] MEDS: QUEtiapine FUMARATE 25 MG TABLET PO ×2 (08:04→16:06)
[2022-05-02] MEDS: busPIRone HCL 10 MG TABLET PO ×2 (08:04→16:06)
[2022-05-02] MEDS: TIMOLOL MALEATE 0.5% OP SOLN 5 ML BOTTLE 1 DROP EACH EYE (08:04)
[2022-05-02] MEDS: FAMOTIDINE 20 MG TABLET PO ×2 (08:04→20:05)
--- NOTE | 2022-05-02 11:58 | WPDNEUROPN ---
Subjective Date/time seen: 05/02/22 11:58 Interval history: Follow-up for TIA in addition to the ongoing history of chronic alcoholism with dementia, neuropathy but abnormal MRI with chronic encephalomalacia in the frontoparietal region in addition to 6 mm lesion of the cortical enhancement left frontal lobe which again could be subacute infarct but will need the follow-up study. Echocardiogram revealed only mild enlargement of left atrium and no intracardiac shunt, will benefit from the EEG Exam Const: General: cooperative, comfortable and no acute distress Nutritional Appearance: average body habitus Orientation/consciousness: oriented to person and oriented to place HENMT: Head: normocephalic Ears: hearing grossly normal bilaterally Face/Nose/Sinus: Normal external nose present Face and sinus: normal facial exam Mouth: Yes Normal oral and palatal mucosa present Eyes: General: appearance normal, both eyes and all related structures Visual Clay: normal visual clay by confrontation Alignment and Position: alignment normal Periorbital: periorbital findings normal Eyelids: eyelids normal Conjunctivae: conjunctivae normal Sclera: sclerae normal Cornea: corneas normal EOM: EOMs intact bilaterally Neck: Neck: full ROM Resp: Effort & Inspection: able to speak in complete sentences Auscultation: clear to auscultation bilaterally Cardio: Jugular venous distension: no JVD Rate: regular rate Rhythm: regular rhythm Neuro: General: oriented to person and oriented to place Cranial nerves: Yes CN's II-XII intact bilaterally Cognition (Neuro): abnormal cognition Speech: normal speech Gait exam (Neuro): Normal gait present Motor exam (neuro): Pronator motor function not present, No tremor noted and Normal motor muscle tone present throughout Plantar Reflex Responses: downgoing: bilateral Coordination: [id number] test normal Psych: Appearance: grossly normal Speech and movement: Clear speech present Affect: Animated affect present Attitude: cooperative Thought process: Circumstantial thought process present Thought content: Yes Normal thought content present Insight: Fair insight present (Psych) Judgement: Fair judgement present (Psych) Objective Data Vital Signs Vital Signs: Vital Signs - 24 hr 05/01/22 14:21 05/01/22 14:00 05/01/22 21:56 Temperature 36.5 C 36.2 C L Pulse Rate 66 68 Respiratory Rate 18 20 Blood Pressure 134/81 118/64 Pulse Oximetry 99 98 Oxygen Delivery Room Air 05/01/22 21:00 05/02/22 05:58 05/02/22 08:00 Temperature 36.2 C L Pulse Rate 65 Respiratory Rate 18 Blood Pressure 121/73 Pulse Oximetry 96 Oxygen Delivery Room Air Room Air Intake/Output Intake/Output: Intake & Output 04/29/22 04/30/22 05/01/22 05/02/22 23:59 23:59 23:59 23:59 Intake Total 1310 1372 980 Balance 1310 1372 980 Meds/Results Medications: Active Medications Generic Name Dose Route Start Last Admin Trade Name Freq PRN Reason Stop Dose Admin Acetaminophen 650 mg 04/30/22 13:11 Acetaminophen 325 Mg Tablet PO Q4H PRN Mild Pain (1-3) or Fever Amlodipine Besylate 5 mg 05/01/22 09:00 05/02/22 08:02 Amlodipine Besylate 5 Mg Tablet PO 5 mg DAILY HERMINIO Administration Aspirin 81 mg 05/01/22 09:00 05/02/22 08:03 Aspirin 81 Mg Enteric Tablet PO 81 mg DAILY HERMINIO Administration Atorvastatin Calcium 10 mg 05/01/22 09:00 05/02/22 08:03 Atorvastatin 10 Mg Tablet PO 10 mg DAILY HERMINIO Administration Buspirone HCl 10 mg 04/30/22 17:00 05/02/22 08:04 Buspirone Hcl 10 Mg Tablet PO 10 mg BID HERMINIO Administration Dextrose 12.5 gm 04/30/22 13:31 Dextrose 50% 25 Gm/50 Ml Syringe IV PUSH PRN PRN Hypoglycemia Protocol Donepezil HCl 5 mg 04/30/22 21:00 05/01/22 21:09 Donepezil Hcl 5 Mg Tablet PO 5 mg HS HERMINIO Administration Famotidine 20 mg 04/30/22 21:00 05/02/22 08:04 Famotidine 20 Mg Tablet PO 2
[2022-05-02 12:10] LABS: Glucose Point of Care 133 mg/dl (65-105)
[2022-05-02 14:00] VITALS: BP 129/76; PULSE 77; RESP 20; TEMP 36.7; O2SAT 92
--- NOTE | 2022-05-02 16:07 | P.PNIM_ITS ---
Progress Note: A&P Assessment and Plan (1) TIA (transient ischemic attack): Code(s): G45.9 - Transient cerebral ischemic attack, unspecified Status: Acute Assessment and Plan: Presented with left facial and left arm numbness. H/O alcohol abuse and 97-[id number]-[id number] smoking history. Comorbid hypertension, type 2 diabetes mellitus, hyperlipidemia and recent documented COVID19 positive 03/06/22 (per custodial notes.) * CT head negative for acute bleeding or infarct * MRI brain- shows 1.6 mm lesion of cortical enhancement in left frontal lobe, most likely a subacute infarct. Brain MRI without and with contrast is recommended in 3 months to exclude malignancy. Chronic encephalomalacia in right frontoparietal region with old blood products that may be secondary lesion or seizure. * Carotid ultrasound <50% stenosis bilateral ICA * Transthoracic echocardiogram with bubble study pending * EKG with nonspecific T-wave changes, troponin negative x3. * Continue aspirin, lipitor, and amlodipine * A1c 5% and stable. * lipid panel - LDL 81, HDL 33, limited use of statin due to liver cirrhosis. * TSH 2.9 * B12 920 and folate 12.2 on 02/10/22 * Monitor neuro status. Control for hypertension and hyperglycemia. * Neurology consulted and appreciate recommendations- recommending EEG * PT/OT consulted. * EEG ordered and pending. 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 non-insulin dependent, A1c 5% * Hold metformin while inpatient * Accu-checks AC/HS with aspart low-dose meal correction. Consider DC'ing if glucose <150 mg/dL x24 hours * Hypoglycemia protocol (3) Cirrhosis: Qualifiers: Ascites presence: without ascites Hepatic cirrhosis type: alcoholic cirrhosis Qualified Code(s): K70.30 - Alcoholic cirrhosis of liver without ascites Code(s): K74.60 - Unspecified cirrhosis of liver Status: Chronic Assessment and Plan: Chronic, presumed secondary to alcohol abuse, compensated. * ammonia level 13 * LFTs within normal limits. * on statin for above. lipid panel as above (4) Benign essential HTN: Code(s): I10 - Essential (primary) hypertension Status: Chronic Assessment and Plan: Chronic, stable * continue amlodipine * Avoid hypotension (5) Hyperlipidemia: Qualifiers: Hyperlipidemia type: mixed hyperlipidemia Qualified Code(s): E78.2 - Mixed hyperlipidemia Code(s): E78.5 - Hyperlipidemia, unspecified Status: Chronic Assessment and Plan: Chronic, stable, * continue low dose lipitor. * lipid panel as above. (6) Alzheimer disease: Code(s): G30.9 - Alzheimer's disease, unspecified; F02.80 - Dementia in other diseases classified elsewhere, unspecified severity, without behavioral disturbance, psychotic disturbance, mood disturbance, and anxiety Status: Chronic Assessment and Plan: Chronic, stable, no behavioral disturbances noted. * Continue donepezil * [place] as needed. * Continue buspirone and sertraline for depression. * Delirium protocol - keep awake during the day, ambulate 3 times daily, natural light, open blinds, minimize sleep di
--- NOTE | 2022-05-02 16:07 | PM.IMPN ---
Progress Note: A&P Assessment and Plan (1) TIA (transient ischemic attack): Code(s): G45.9 - Transient cerebral ischemic attack, unspecified Status: Acute Assessment and Plan: Presented with left facial and left arm numbness. H/O alcohol abuse and [id number] smoking history. Comorbid hypertension, type 2 diabetes mellitus, hyperlipidemia and recent documented COVID19 positive 03/06/22 (per longterm notes.) CT head negative for acute bleeding or infarct MRI brain- shows 1.6 mm lesion of cortical enhancement in left frontal lobe, most likely a subacute infarct. Brain MRI without and with contrast is recommended in 3 months to exclude malignancy. Chronic encephalomalacia in right frontoparietal region with old blood products that may be secondary lesion or seizure. Carotid ultrasound <50% stenosis bilateral ICA Transthoracic echocardiogram with bubble study pending EKG with nonspecific T-wave changes, troponin negative x3. Continue aspirin, lipitor, and amlodipine A1c 5% and stable. lipid panel - LDL 81, HDL 33, limited use of statin due to liver cirrhosis. TSH 2.9 B12 920 and folate 12.2 on 02/10/22 Monitor neuro status. Control for hypertension and hyperglycemia. Neurology consulted and appreciate recommendations- recommending EEG PT/OT consulted. EEG ordered and pending. 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 non-insulin dependent, A1c 5% Hold metformin while inpatient Accu-checks AC/HS with aspart low-dose meal correction. Consider DC'ing if glucose <150 mg/dL x24 hours Hypoglycemia protocol (3) Cirrhosis: Qualifiers: Ascites presence: without ascites Hepatic cirrhosis type: alcoholic cirrhosis Qualified Code(s): K70.30 - Alcoholic cirrhosis of liver without ascites Code(s): K74.60 - Unspecified cirrhosis of liver Status: Chronic Assessment and Plan: Chronic, presumed secondary to alcohol abuse, compensated. ammonia level 13 LFTs within normal limits. on statin for above. lipid panel as above (4) Benign essential HTN: Code(s): I10 - Essential (primary) hypertension Status: Chronic Assessment and Plan: Chronic, stable continue amlodipine Avoid hypotension (5) Hyperlipidemia: Qualifiers: Hyperlipidemia type: mixed hyperlipidemia Qualified Code(s): E78.2 - Mixed hyperlipidemia Code(s): E78.5 - Hyperlipidemia, unspecified Status: Chronic Assessment and Plan: Chronic, stable, continue low dose lipitor. lipid panel as above. (6) Alzheimer disease: Code(s): G30.9 - Alzheimer's disease, unspecified; F02.80 - Dementia in other diseases classified elsewhere, unspecified severity, without behavioral disturbance, psychotic disturbance, mood disturbance, and anxiety Status: Chronic Assessment and Plan: Chronic, stable, no behavioral disturbances noted. Continue donepezil [place] as needed. Continue buspirone and sertraline for depression. Delirium protocol - keep awake during the day, ambulate 3 times daily, natural light, open blinds, minimize sleep disturbances at night, avoid sedating medications, orient as needed. Plan CODE STATUS: DNR Disposition: return to SNF. Discharge pending EEG and Neurology clearance GI prophylaxis: home famotidine PO Bowel regimen: home senna with PRN miralax. Time Spent With Patient Time with patient: 15 - 25 minutes Subjective Date/time seen: 05/02/22 16:07 Interval history: no new complaints. Patient is fr
[2022-05-02 17:25] LABS: Glucose Point of Care 102 mg/dl (65-105)
[2022-05-02 20:00] VITALS: PULSE 77; RESP 20; O2SAT 92
[2022-05-02] MEDS: DONEPEZIL HCL 5 MG TABLET PO (20:05)
[2022-05-02] MEDS: LATANOPROST 0.005% OP SOLN 2.5 ML BTL 1 DROP EACH EYE (20:05)
[2022-05-02 22:59] VITALS: BP 128/80; PULSE 68; RESP 18; TEMP 36.6; O2SAT 97
[2022-05-03 00:05] LABS: Glucose Point of Care 161 mg/dl (65-105)
[2022-05-03 05:31] LABS: Alanine Aminotransferase 13 U/L (6-50); Albumin Level 3.8 g/dL (3.5-5.1); Alkaline Phosphatase 57 U/L (38-126); Anion Gap 11 mmol/L (8-16); Aspartate Amino Transferase 19 U/L (17-59); Bilirubin,Total 0.5 mg/dL (0.2-1.3); Blood Urea Nitrogen 15 mg/dL (9-20); Calcium 8.7 mg/dL (8.4-10.2); Carbon Dioxide 29 mmol/L (22-30); Chloride 99 mmol/L (98-107); Estimated CRCL calculation 50 ml/min; Estimated Glomerular Filt Rate > 60; Glucose 87 mg/dL (65-110); Potassium 3.7 mmol/L (3.4-5.0); Sodium 139 mmol/L (137-145)
[2022-05-03 05:34] LABS: Hemoglobin 14.1 g/dL (14.0-18.0); Mean Corpuscular HGB Conc 33.6 g/dl (32-36); Mean Corpuscular Hemoglobin 32.5 pg (26-34); Mean Corpuscular Volume 96.8 fl (80-100); Mean Platelet Volume 10.1 fl (7.4-10.4); Platelet Count Result 320 k/mm3 (150-375); Red Blood Count 4.34 M/mm3 (4.6-6.20); Red Cell Distribution Width 12.2 % (11.5-14.5); White Blood Count 8.1 K/mm3 (4.5-10.0)
[2022-05-03 06:57] VITALS: BP 128/89; PULSE 68; RESP 16; TEMP 36.8; O2SAT 94
--- NOTE | 2022-05-03 07:10 | P.PNIM_ITS ---
Progress Note: A&P Assessment and Plan (1) TIA (transient ischemic attack): Code(s): G45.9 - Transient cerebral ischemic attack, unspecified Status: Acute Assessment and Plan: Presented with left facial and left arm numbness. H/O alcohol abuse and [id number] smoking history. Comorbid hypertension, type 2 diabetes mellitus, hyperlipidemia and recent documented COVID19 positive 03/06/22 (per [facility] notes.) * CT head negative for acute bleeding or infarct * MRI brain- shows 1.6 mm lesion of cortical enhancement in left frontal lobe, most likely a subacute infarct. Brain MRI without and with contrast is recommended in 3 months to exclude malignancy. Chronic encephalomalacia in right frontoparietal region with old blood products that may be secondary lesion or seizure. * Carotid ultrasound <50% stenosis bilateral ICA * Transthoracic echocardiogram with bubble study pending * EKG with nonspecific T-wave changes, troponin negative x3. * Continue aspirin, lipitor, and amlodipine * A1c 5% and stable. * lipid panel - LDL 81, HDL 33, limited use of statin due to liver cirrhosis. * TSH 2.9 * B12 920 and folate 12.2 on 02/10/22 * Monitor neuro status. Control for hypertension and hyperglycemia. * Neurology consulted and appreciate recommendations- recommending EEG * PT/OT consulted. * EEG ordered and pending. 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 non-insulin dependent, A1c 5% * Hold metformin while inpatient * Current glucose is 87 * Accu-checks AC/HS with aspart low-dose meal correction. Consider DC'ing if glucose <150 mg/dL x24 hours * Hypoglycemia protocol (3) Cirrhosis: Qualifiers: Ascites presence: without ascites Hepatic cirrhosis type: alcoholic cirrhosis Qualified Code(s): K70.30 - Alcoholic cirrhosis of liver without ascites Code(s): K74.60 - Unspecified cirrhosis of liver Status: Chronic Assessment and Plan: Chronic, presumed secondary to alcohol abuse, compensated. * ammonia level 13 * LFTs within normal limits. AST/ALT * on statin for above. lipid panel as above (4) Benign essential HTN: Code(s): I10 - Essential (primary) hypertension Status: Chronic Assessment and Plan: * Chronic, stable * BP 128/89 * continue amlodipine * Avoid hypotension (5) Hyperlipidemia: Qualifiers: Hyperlipidemia type: mixed hyperlipidemia Qualified Code(s): E78.2 - Mixed hyperlipidemia Code(s): E78.5 - Hyperlipidemia, unspecified Status: Chronic Assessment and Plan: * Chronic, stable, * continue low dose lipitor. * lipid panel as above. (6) Alzheimer disease: Code(s): G30.9 - Alzheimer's disease, unspecified; F02.80 - Dementia in other diseases classified elsewhere, unspecified severity, without behavioral disturbance, psychotic disturbance, mood disturbance, and anxiety Status: Chronic Assessment and Plan: * Chronic, stable, no behavioral disturbances noted. * Continue donepezil * [place] as needed. * Continue buspirone and sertraline for depression. * Delirium protocol - keep awake d
--- NOTE | 2022-05-03 07:10 | PM.IMPN ---
Progress Note: A&P Assessment and Plan (1) TIA (transient ischemic attack): Code(s): G45.9 - Transient cerebral ischemic attack, unspecified Status: Acute Assessment and Plan: Presented with left facial and left arm numbness. H/O alcohol abuse and [id number]-[id number] smoking history. Comorbid hypertension, type 2 diabetes mellitus, hyperlipidemia and recent documented COVID19 positive 03/06/22 (per [facility] notes.) CT head negative for acute bleeding or infarct MRI brain- shows 1.6 mm lesion of cortical enhancement in left frontal lobe, most likely a subacute infarct. Brain MRI without and with contrast is recommended in 3 months to exclude malignancy. Chronic encephalomalacia in right frontoparietal region with old blood products that may be secondary lesion or seizure. Carotid ultrasound <50% stenosis bilateral ICA Transthoracic echocardiogram with bubble study pending EKG with nonspecific T-wave changes, troponin negative x3. Continue aspirin, lipitor, and amlodipine A1c 5% and stable. lipid panel - LDL 81, HDL 33, limited use of statin due to liver cirrhosis. TSH 2.9 B12 920 and folate 12.2 on 02/10/22 Monitor neuro status. Control for hypertension and hyperglycemia. Neurology consulted and appreciate recommendations- recommending EEG PT/OT consulted. EEG ordered and pending. Monitor for seizure activity (2) Diabetes: Qualifiers: Diabetes mellitus complication status: without complication Diabetes mellitus manager intermediate insulin use: without [facility] use Diabetes mellitus type: type 2 Qualified Code(s): E11.9 - Type 2 diabetes mellitus without complications Code(s): E11.9 - Type 2 diabetes mellitus without complications Status: Chronic Assessment and Plan: Chronic, stable. non-insulin dependent, A1c 5% Hold metformin while inpatient Current glucose is 87 Accu-checks AC/HS with aspart low-dose meal correction. Consider DC'ing if glucose <150 mg/dL x24 hours Hypoglycemia protocol (3) Cirrhosis: Qualifiers: Ascites presence: without ascites Hepatic cirrhosis type: alcoholic cirrhosis Qualified Code(s): K70.30 - Alcoholic cirrhosis of liver without ascites Code(s): K74.60 - Unspecified cirrhosis of liver Status: Chronic Assessment and Plan: Chronic, presumed secondary to alcohol abuse, compensated. ammonia level 13 LFTs within normal limits. AST/ALT 19/13 on statin for above. lipid panel as above (4) Benign essential HTN: Code(s): I10 - Essential (primary) hypertension Status: Chronic Assessment and Plan: Chronic, stable BP 128/89 continue amlodipine Avoid hypotension (5) Hyperlipidemia: Qualifiers: Hyperlipidemia type: mixed hyperlipidemia Qualified Code(s): E78.2 - Mixed hyperlipidemia Code(s): E78.5 - Hyperlipidemia, unspecified Status: Chronic Assessment and Plan: Chronic, stable, continue low dose lipitor. lipid panel as above. (6) Alzheimer disease: Code(s): G30.9 - Alzheimer's disease, unspecified; F02.80 - Dementia in other diseases classified elsewhere, unspecified severity, without behavioral disturbance, psychotic disturbance, mood disturbance, and anxiety Status: Chronic Assessment and Plan: Chronic, stable, no behavioral disturbances noted. Continue donepezil [place] as needed. Continue buspirone and sertraline for depression. Delirium protocol - keep awake during the day, ambulate 3 times daily, natural light, open blinds, minimize sleep disturbances at night, avoid sedating medications, orient as needed. Time Spent With Patient Time with patient: Greater than 35 minutes Subjective Date/time seen: 05/03/22 07:10 Interval history: 05/03/22 05/02/22? 16:07 ?no new complaints.? Patient is frequently trying to get out of bed without calling for assistance.? He is confused
[2022-05-03] MEDS: ATORVASTATIN 10 MG TABLET PO (08:11)
[2022-05-03] MEDS: QUEtiapine FUMARATE 25 MG TABLET PO (08:11)
[2022-05-03] MEDS: SENNA/DOCUSATE SODIUM TABLET 2 TAB PO (08:11)
[2022-05-03] MEDS: SERTRALINE HCL 50 MG TABLET PO (08:11)
[2022-05-03] MEDS: amLODIPine BESYLATE 5 MG TABLET PO (08:11)
[2022-05-03] MEDS: CHOLECALCIFEROL 1,000 UNITS TABLET 2000 UNITS PO (08:11)
[2022-05-03] MEDS: ASPIRIN 81 MG ENTERIC TABLET PO (08:11)
[2022-05-03] MEDS: busPIRone HCL 10 MG TABLET PO (08:11)
[2022-05-03] MEDS: FAMOTIDINE 20 MG TABLET PO (08:11)
[2022-05-03] MEDS: TIMOLOL MALEATE 0.5% OP SOLN 5 ML BOTTLE 1 DROP EACH EYE (08:12)
[2022-05-03 08:43] LABS: Glucose Point of Care 85 mg/dl (65-105)
--- NOTE | 2022-05-03 09:30 | PM.DS ---
DS: Admitting Diagnosis Discharge Date 05/03/22929 Admitting Diagnosis TIA DS: Discharge Diagnosis Discharge Diagnosis (1) TIA (transient ischemic attack): Code(s): G45.9 - Transient cerebral ischemic attack, unspecified Status: Acute Assessment and Plan: Presented with left facial and left arm numbness. H/O alcohol abuse and [id number] smoking history. Comorbid hypertension, type 2 diabetes mellitus, hyperlipidemia and recent documented COVID19 positive 03/06/22 ([facility] CT head negative for acute bleeding or infarct MRI brain- shows 1.6 mm lesion of cortical enhancement in left frontal lobe, most likely a subacute infarct. Brain MRI without and with contrast is recommended in 3 months to exclude malignancy. Chronic encephalomalacia in right frontoparietal region with old blood products that may be secondary lesion or seizure. Carotid ultrasound <50% stenosis bilateral ICA Transthoracic echocardiogram with bubble study pending EKG with nonspecific T-wave changes, troponin negative x3. Continue aspirin, lipitor, and amlodipine A1c 5% and stable. lipid panel - LDL 81, HDL 33, limited use of statin due to liver cirrhosis. TSH 2.9 B12 920 and folate 12.2 on 02/10/22 Monitor neuro status. Control for hypertension and hyperglycemia. Neurology consulted and appreciate recommendations- recommending EEG PT/OT consulted. EEG showed normal record Plavix 75mg PO daily for 6 weeks (2) Diabetes: Qualifiers: Diabetes mellitus complication status: without complication Diabetes mellitus educational consultant insulin use: without educational consultant use Diabetes mellitus type: type 2 Qualified Code(s): E11.9 - Type 2 diabetes mellitus without complications Code(s): E11.9 - Type 2 diabetes mellitus without complications Status: Chronic Assessment and Plan: Chronic, stable. non-insulin dependent, A1c 5% Hold metformin while inpatient Current glucose is 87 Accu-checks AC/HS with aspart low-dose meal correction. Consider DC'ing if glucose <150 mg/dL x24 hours Hypoglycemia protocol (3) Cirrhosis: Qualifiers: Ascites presence: without ascites Hepatic cirrhosis type: alcoholic cirrhosis Qualified Code(s): K70.30 - Alcoholic cirrhosis of liver without ascites Code(s): K74.60 - Unspecified cirrhosis of liver Status: Chronic Assessment and Plan: Chronic, presumed secondary to alcohol abuse, compensated. ammonia level 13 LFTs within normal limits. AST/ALT 19/13 on statin for above. lipid panel as above (4) Benign essential HTN: Code(s): I10 - Essential (primary) hypertension Status: Chronic Assessment and Plan: Chronic, stable BP 128/89 continue amlodipine Avoid hypotension (5) Hyperlipidemia: Qualifiers: Hyperlipidemia type: mixed hyperlipidemia Qualified Code(s): E78.2 - Mixed hyperlipidemia Code(s): E78.5 - Hyperlipidemia, unspecified Status: Chronic Assessment and Plan: Chronic, stable, continue low dose lipitor. lipid panel as above. (6) Alzheimer disease: Code(s): G30.9 - Alzheimer's disease, unspecified; F02.80 - Dementia in other diseases classified elsewhere, unspecified severity, without behavioral disturbance, psychotic disturbance, mood disturbance, and anxiety Status: Chronic Assessment and Plan: Chronic, stable, no behavioral disturbances noted. Continue donepezil [place] as needed. Continue buspirone and sertraline for depression. Delirium protocol - keep awake during the day, ambulate 3 times daily, natural light, open blinds, minimize sleep disturbances at night, avoid sedating medications, orient as needed. (7) Seizure: Code(s): R56.9 - Unspecified convulsions Status: Acute Assessment and Plan: Does have a history of seizures Keppra 750mg PO BID DS: Summ
--- NOTE | 2022-05-03 09:30 | P.DS_ITS ---
DS: Admitting Diagnosis Discharge Date 05/03/22929 Admitting Diagnosis TIA DS: Discharge Diagnosis Discharge Diagnosis (1) TIA (transient ischemic attack): Code(s): G45.9 - Transient cerebral ischemic attack, unspecified Status: Acute Assessment and Plan: Presented with left facial and left arm numbness. H/O alcohol abuse and [id number] smoking history. Comorbid hypertension, type 2 diabetes mellitus, hyperlipidemia and recent documented COVID19 positive 03/06/22 (per [place] * CT head negative for acute bleeding or infarct * MRI brain- shows 1.6 mm lesion of cortical enhancement in left frontal lobe, most likely a subacute infarct. Brain MRI without and with contrast is recommended in 3 months to exclude malignancy. Chronic encephalomalacia in right frontoparietal region with old blood products that may be secondary lesion or seizure. * Carotid ultrasound <50% stenosis bilateral ICA * Transthoracic echocardiogram with bubble study pending * EKG with nonspecific T-wave changes, troponin negative x3. * Continue aspirin, lipitor, and amlodipine * A1c 5% and stable. * lipid panel - LDL 81, HDL 33, limited use of statin due to liver cirrhosis. * TSH 2.9 * B12 920 and folate 12.2 on 02/10/22 * Monitor neuro status. Control for hypertension and hyperglycemia. * Neurology consulted and appreciate recommendations- recommending EEG * PT/OT consulted. * EEG showed normal record * Plavix 75mg PO daily for 6 weeks (2) Diabetes: Qualifiers: Diabetes mellitus complication status: without complication Diabetes mellitus marine oil terminal superintendent insulin use: without marine oil terminal superintendent use Diabetes mellitus type: type 2 Qualified Code(s): E11.9 - Type 2 diabetes mellitus without complications Code(s): E11.9 - Type 2 diabetes mellitus without complications Status: Chronic Assessment and Plan: Chronic, stable. non-insulin dependent, A1c 5% * Hold metformin while inpatient * Current glucose is 87 * Accu-checks AC/HS with aspart low-dose meal correction. Consider DC'ing if glucose <150 mg/dL x24 hours * Hypoglycemia protocol (3) Cirrhosis: Qualifiers: Ascites presence: without ascites Hepatic cirrhosis type: alcoholic cirrhosis Qualified Code(s): K70.30 - Alcoholic cirrhosis of liver without ascites Code(s): K74.60 - Unspecified cirrhosis of liver Status: Chronic Assessment and Plan: Chronic, presumed secondary to alcohol abuse, compensated. * ammonia level 13 * LFTs within normal limits. AST/ALT / * on statin for above. lipid panel as above (4) Benign essential HTN: Code(s): I10 - Essential (primary) hypertension Status: Chronic Assessment and Plan: * Chronic, stable * BP 128/89 * continue amlodipine * Avoid hypotension (5) Hyperlipidemia: Qualifiers: Hyperlipidemia type: mixed hyperlipidemia Qualified Code(s): E78.2 - Mixed hyperlipidemia Code(s): E78.5 - Hyperlipidemia, unspecified Status: Chronic Assessment and Plan: * Chronic, stable, * continue low dose lipitor. * lipid panel as above. (6) Alzheimer disease: Code(s): G30.9 - Alzheimer's disease, unspecified; F02.80 - Dementia in other diseases classified elsewhere, unspecified severity, without behavioral disturbance, psychotic disturbance, mood disturbance, and anxiety Status: Chronic Assessment and Plan: * Chronic, stable, no behavioral disturbances noted.
--- NOTE | 2022-05-03 09:41 | WPDNEUROLOGY ---
Neurology EEG Report General Information Date of Study: 05/02/22 TEST EEG DIAGNOSIS seizures CONDITION OF RECORDING awake and drowsy EEG NUMBER [id number] CLINICAL HISTORY patient reported he loss consciousness a few days ago and then 2 days ago had an episode of slurred speech and facial numbness EEG DESCRIPTION basic resting occipital frequency consists of low-voltage to medium voltage 8 to 10 hertz per 2nd alpha admixed with low-voltage 15 to 18 hertz per 2nd beta. During drowsiness low-voltage beta activity seen diffusely admixed with waxing and waning posterior alpha rhythm. Hyperventilation not done. Photic stimulation not done. Non paroxysmal. Nonfocal. Nonlateralizing. IMPRESSION Normal record
[2022-05-03 10:20] VITALS: O2SAT 94
[2022-05-03 12:14] LABS: Glucose Point of Care 86 mg/dl (65-105)
--- NOTE | 2022-05-03 13:37 | WPDNEUROPN ---
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 Echocardiogram has been done which documented left ventricular chamber dimension normal Ms. estimated 60 to 65% systolic function and left atrial chamber mildly enlarged and documented no intracardiac shunt. EEG was also done which was normal at this stage patient will be discharged with instruction to follow up in the office all the pros and cons of the diagnosis have been discussed with the family Objective Data Vital Signs Vital Signs: Vital Signs - 24 hr 05/02/22 14:00 05/02/22 20:00 05/02/22 22:59 Temperature 36.7 C 36.6 C Pulse Rate 77 77 68 Respiratory Rate 20 20 18 Blood Pressure 129/76 128/80 Pulse Oximetry 92 92 97 Oxygen Delivery Room Air 05/03/22 06:57 05/03/22 10:20 Temperature 36.8 C Pulse Rate 68 Respiratory Rate 16 Blood Pressure 128/89 Pulse Oximetry 94 94 Oxygen Delivery Room Air Intake/Output Intake/Output: Intake & Output 04/30/22 05/01/22 05/02/22 05/03/22 23:59 23:59 23:59 23:59 Intake Total 1310 1372 2318 740 Balance 1310 1372 2318 740 Meds/Results Medications: Active Medications Generic Name Dose Route Start Last Admin Trade Name Freq PRN Reason Stop Dose Admin Acetaminophen 650 mg 04/30/22 13:11 Acetaminophen 325 Mg Tablet PO Q4H PRN Mild Pain (1-3) or Fever Amlodipine Besylate 5 mg 05/01/22 09:00 05/03/22 08:11 Amlodipine Besylate 5 Mg Tablet PO 5 mg DAILY HERMINIO Administration Aspirin 81 mg 05/01/22 09:00 05/03/22 08:11 Aspirin 81 Mg Enteric Tablet PO 81 mg DAILY HERMINIO Administration Atorvastatin Calcium 10 mg 05/01/22 09:00 05/03/22 08:11 Atorvastatin 10 Mg Tablet PO 10 mg DAILY HERMINIO Administration Buspirone HCl 10 mg 04/30/22 17:00 05/03/22 08:11 Buspirone Hcl 10 Mg Tablet PO 10 mg BID HERMINIO Administration Clopidogrel Bisulfate 75 mg 05/04/22 09:00 Clopidogrel Bisulfate 75 Mg Tablet PO QAM HERMINIO Dextrose 12.5 gm 04/30/22 13:31 Dextrose 50% 25 Gm/50 Ml Syringe IV PUSH PRN PRN Hypoglycemia Protocol Donepezil HCl 5 mg 04/30/22 21:00 05/02/22 20:05 Donepezil Hcl 5 Mg Tablet PO 5 mg HS HERMINIO Administration Famotidine 20 mg 04/30/22 21:00 05/03/22 08:11 Famotidine 20 Mg Tablet PO 20 mg Q12HR HERMINIO Administration Glucagon 1 mg 04/30/22 13:31 Glucagon For Inj 1 Mg Vial IM PRN PRN Hypoglycemia Protocol Glucose 15 gm 04/30/22 13:31 Glucose Oral Gel 15 Gm Of Glucse In 37.5 Gm Tube PO PRN PRN Hypoglycemia Protocol Dextrose 1,000 mls @ 100 mls/hr 04/30/22 13:31 Dextrose 5% 1,000 Ml IVPB PRN PRN Hypoglycemia Protocol Insulin Aspart 2 - 5 units 04/30/22 17:00 05/03/22 13:11 Insulin Aspart (*Bkc) 100 Units/Ml SUB-Q Not Given TIDWM HERMINIO Protocol Latanoprost 1 drop 04/30/22 21:00 05/02/22 20:05 Latanoprost 0.005% Op Soln 2.5 Ml Btl EACH EYE 1 drop HS HERMINIO Administration Levetiracetam 250 mg/ 750 mg 05/03/22 12:33 Levetiracetam 500 mg PO Q12HR HERMINIO Lorazepam 0.5 mg 04/30/22 16:40 05/01/22 21:08 Lorazepam (*Crx) 0.5 Mg Tablet PO 0.5 mg Q6H PRN Administration Anxiety Ondansetron HCl 4 mg 04/30/22 13:11 Ondansetron Inj 4 Mg/2 Ml Vial IV PUSH Q6H PRN Nausea And Vomiting Polyethylene Glycol 17 gm 04/30/22 13:08 Polyethylene Glycol 3350 17 Gm Powd.Pack PO QAM PRN Constipation Quetiapine Fumarate 25 mg 04/30/22 17:00 05/03/22 08:11 Quetiapine Fumarate 25 Mg Tablet PO 25 mg BID HERMINIO Administration Senna/Docusate Sodium 2 tab
[2022-05-03] MEDS: levETIRAcetam Tablet 250 MG, levETIRAcetam Tablet 500 MG 750 MG PO (13:51)
== END 2022-05-03 14:03 | DRG 69 ==
LOC: ANHED 22:21 → ANH2MED 22:56
PROVIDERS: Nurse Practitioner Family; Admitting Provider Internal Medicine; Emergency Provider Emergency Medicine; Visit Provider Nurse Practitioner
DX: G45.9 Transient cerebral ischemic attack, unspecified (principal); K70.30 Alcoholic cirrhosis of liver without ascites; I10 Essential (primary) hypertension; I65.23 Occlusion and stenosis of bilateral carotid arteries; E78.5 Hyperlipidemia, unspecified; E11.40 Type 2 diabetes mellitus with diabetic neuropathy, unspecified; E55.9 Vitamin D deficiency, unspecified; M20.41 Other hammer toe(s) (acquired), right foot; M20.5X9 Other deformities of toe(s) (acquired), unspecified foot; R29.701 NIHSS score 1; G40.909 Epilepsy, unspecified, not intractable, without status epilepticus; G30.9 Alzheimer's disease, unspecified; G93.89 Other specified disorders of brain; F32.A Depression, unspecified; F02.80 Dementia in other diseases classified elsewhere, unspecified severity, without behavioral disturbance, psychotic disturbance, mood disturbance, and anxiety; F41.9 Anxiety disorder, unspecified; Z66 Do not resuscitate; Z87.891 Personal history of nicotine dependence; Z79.84 Long term (current) use of oral hypoglycemic drugs; Z79.82 Long term (current) use of aspirin
CPT/HCPCS: 36415; 70450; 70553; 71045; 80048; 80053; 80061; 80164; 82140; 82306; 82948; 83036; 83735; 84443; 84484; 85025; 85027; 85610; 85730; 93005; 93306; 93880; 95816; 96375; 97161; 97165; 99285; A9270; A9577; G0378

== ENCOUNTER 2022-05-07 18:20 | Emergency (ER) | payer MEDICARE, BC, SELFPAY ==
--- NOTE | ~2022-05-07 | XR_ITS ---
EXAMINATION: XR chest 1V Exam Date/Time: 05/07/2022 19:00 CDT HISTORY: weakness,slurred speech today hx cva,htn,anxiety,alcohlism Comparison: 04/29/2022. RESULT: Lines, tubes, and devices: Lower cervical fusion hardware. Lungs and pleura: Diffuse opacity in the left hemithorax likely related to summation artifact. Senes cent change. Linear scar/atelectasis in the lung bases. Cardiomediastinal silhouette: Stable. Other: No acute osseous or upper abdominal finding. IMPRESSION: No acute cardiopulmonary process. Reviewed, dictated and finalized at location K.
--- NOTE | ~2022-05-07 | CT_ITS ---
EXAMINATION: CT brain wo con DATE: 05/07/2022 19:02 INDICATION: slurred speech . TECHNIQUE: Computed tomography (CT) of the head was performed without intravenous contrast. The mA wa s adjusted according to patient size. Iterative reconstruction technique was employed. The dose-lengt h product was 605.33 mGy-cm. COMPARISON: 04/29/2022 FINDINGS: No acute intracranial hemorrhage or extra-axial fluid collection. No hydrocephalus, mass, or herniation. No acute ischemic infarct. Unremarkable dural venous sinus attenuation. No acute osseous abnormality. The aerated spaces are clear. Moderate atrophy and severe chronic white matter change. Atherosclerotic intracranial calcification. IMPRESSION: No acute intracranial process. Reviewed, dictated and finalized at location K.
[2022-05-07 18:20] VITALS: BP 142/77; PULSE 73; RESP 14; O2SAT 100
--- NOTE | 2022-05-07 18:36 | ECG_ITS ---
Measurements Intervals [place] Rate: 67 P: 0 MS: 198 QRS: -5 QRSD: 88 T: -23 QT: 385 QTc: 408 Interpretive Statements SINUS RHYTHM NONSPECIFIC T-WAVE ABNORMALITY COMPARED TO PRIOR ECG DATED 04/29/22 19:57 NO SIGNIFICANT CHANGES Electronically Signed On 05-08-2022 11:35:31 CDT by Pratik Norris M.D.
[2022-05-07 18:48] LABS: Basophils Percent Auto 0.4 % (0.2-1.2); Eosinophils Absolute Auto 0.2 K/mm3 (0-0.3); Eosinophils Percent Auto 2.4 % (0-4.4); Hematocrit 39.8 % (42.0-52.0); Hemoglobin 13.5 g/dL (14.0-18.0); Immature Granulocyte Absolute 0.01 K/mm3 (0.00-0.031); Immature Granulocyte Percent A 0.1 % (0-0.5); Lymphocytes Absolute Auto 2.28 K/mm3 (0.9-3.2); Lymphocytes Percent Auto 30.1 % (18.3-44.2); Mean Corpuscular HGB Conc 33.9 g/dl (32-36); Mean Corpuscular Hemoglobin 32.4 pg (26-34); Mean Corpuscular Volume 95.4 fl (80-100); Mean Platelet Volume 10.3 fl (7.4-10.4); Monocytes Absolute Auto 0.6 K/mm3 (0.1-0.6); Monocytes Percent Auto 7.7 % (2.6-8.5); Neutrophils Absolute Auto 4.5 K/mm3 (1.3-6.7); Neutrophils Percent Auto 59.3 % (45.5-73.1); Platelet Count Result 300 k/mm3 (150-375); Red Blood Count 4.17 M/mm3 (4.6-6.20); Red Cell Distribution Width 12.3 % (11.5-14.5); White Blood Count 7.6 K/mm3 (4.5-10.0)
[2022-05-07 18:50] LABS: Add Urine Microscopic? NO; Appearance Urine Clear (Clear); Bilirubin Urine Negative (Negative); Blood Urine Negative (Negative); Color Urine Straw (Yellow); Glucose Urine UA Negative (Negative); Ketones Urine Negative (Negative); Leukocyte Esterase Ur Negative LEU/UL (Negative); Nitrate Urine Negative (Negative); Protein Urine Negative (Negative); Urobilinogen Urine Negative mg/dL (<2.0)
[2022-05-07 18:51] LABS: Specific Grav Ur 1.004 (1.001-1.035)
[2022-05-07 18:55] VITALS: BP 128/81; PULSE 69; RESP 19; O2SAT 100
[2022-05-07 18:58] LABS: INR 1.1
[2022-05-07 18:59] LABS: Partial Thromboplastin Time 30.3 SECONDS (22.3-36.8)
[2022-05-07 19:01] LABS: Alanine Aminotransferase 14 U/L (6-50); Alkaline Phosphatase 63 U/L (38-126); Anion Gap 13 mmol/L (8-16); Aspartate Amino Transferase 19 U/L (17-59); Bilirubin,Total 0.4 mg/dL (0.2-1.3); Blood Urea Nitrogen 12 mg/dL (9-20); Calcium 8.5 mg/dL (8.4-10.2); Carbon Dioxide 26 mmol/L (22-30); Chloride 100 mmol/L (98-107); Estimated CRCL calculation 55 ml/min; Estimated Glomerular Filt Rate > 60; Glucose 142 mg/dL (65-110); Potassium 3.3 mmol/L (3.4-5.0); Sodium 139 mmol/L (137-145)
[2022-05-07 19:12] LABS: Troponin I < 0.012 ng/mL (0.000-0.034)
[2022-05-07 19:17] VITALS: BP 152/96; PULSE 74; RESP 19; O2SAT 100
--- NOTE | 2022-05-07 19:17 | PC.NURSE ---
Assumed care of pt at this time.
[2022-05-07 19:32] LABS: Glucose Point of Care 106 mg/dl (65-105)
--- NOTE | 2022-05-07 19:41 | ED.NEUROSD ---
HPI - Neuro Symptoms/Deficit General Chief Complaint: Neuro Symptoms/Deficit Stated Complaint: left facial weakness Time Seen by Provider: 05/07/22 18:23 Source: patient, EMS, RN notes reviewed and old records reviewed Mode of arrival: EMS History of Present Illness HPI Narrative: This is a 76 year old male with history of TIA and multiple other medical problems who presents from nursing facility for evaluation of a stroke. Patient reports left facial numbness for over 1 week. He was discharged from [facility] days ago for evaluation of left facial numbness. EMS states nursing staff believed patient had left facial droop today and they also report slurred speech and blurred vision. On EMS arrival, patient may have had left nasolabial flattening but otherwise no focal deficits. PAtient denies headache, chest pain, dizziness, sob, nausea or vomiting. Related Data Home Medications Medication Instructions Recorded Confirmed aspirin 81 mg tablet,delayed 81 mg PO DAILY 09/17/19 04/30/22 release (Adult Low Dose Aspirin) latanoprost 0.005 % eye drops 1 drop ophthalmic (eye) DAILY 09/17/19 04/30/22 amlodipine 5 mg tablet 5 mg PO DAILY 01/24/22 04/30/22 buspirone 10 mg tablet 10 mg PO BID 01/24/22 04/30/22 metformin 500 mg tablet 500 mg PO BID 01/24/22 04/30/22 quetiapine 25 mg tablet 25 mg PO BID 01/24/22 04/30/22 sertraline 100 mg tablet 50 mg PO DAILY 01/24/22 04/30/22 timolol maleate 0.5 % eye drops 1 drop ophthalmic (eye) QA 01/24/22 04/30/22 cholecalciferol (vitamin D3) 25 25 mcg PO DAILY 02/21/22 04/30/22 mcg (1,000 unit) capsule loperamide 2 mg capsule 2 mg PO DAILY 04/30/22 04/30/22 Allergies Allergy/AdvReac Type Severity Reaction Status Date / Time house dust Allergy Unknown sneezing Verified 02/17/22 11:01 Review of Systems Review of Systems: All systems reviewed & are unremarkable except as noted in HPI and below Constitutional: Constitutional: Denies chills, Reports fatigue and Denies fever(s) Eyes: Eyes: Denies photophobia ENT: Denies nasal congestion and Denies sore throat Cardiovascular: Cardiovascular: Denies chest pain and Denies radiating jaw, neck or arm pain Respiratory: Respiratory: Denies chest congestion, Denies cough and Denies dyspnea Gastrointestinal: Gastrointestinal: Denies abdominal pain, Denies nausea and Denies vomiting Neurologic: Denies headache(s), Denies focal weakness and Reports numbness PMFSH Past Medical History Medical History Alcohol abuse Alzheimer disease Anxiety Benign essential HTN Cirrhosis [place], acquired Convulsions Dementia Depression Diabetes Hallux valgus (acquired), right foot Hammertoe of right foot Hyperlipidemia Seizure Vitamin D deficiency Surgical History Surgical History H/O hernia repair Status post open reduction with internal fixation (ORIF) of fracture of ankle 02/02/22 left ankle bimalleolar fracture with ORIF left ankle syndesmosis Family History Family History Father Family history of chronic obstructive pulmonary disease Patient's father is , Onset Age: 82 Diabetes mellitus Family history of hypercholesterolemia Family history of cardiovascular disease Family history of congestive heart failure Mother Family history of dementia Patient's mother is , Onset Age: 82 Diabetes mellitus Family history of hypercholesterolemia Family history of Alzheimer's disease Other Family history of arthritis Social History Social History Smoking packs per day: 2 Smoking cigarettes per day: 40.0 Years smoked: 20 Smoking pack-years: 40.00 Smoking status: Never smoker Tobacco type: cigarettes Second hand tobacco smoke exposure: Yes Smoking end date: 01/25/80
[2022-05-07 20:17] VITALS: BP 127/85; PULSE 70; RESP 19; O2SAT 98
--- NOTE | 2022-05-07 20:26 | PC.NURSE ---
Attempted to call report to NH staff, no answer. Left message to call back.
== END 2022-05-07 20:23 ==
PROVIDERS: Emergency Provider General Practice; PCP Emergency Medicine
DX: R20.0 Anesthesia of skin (principal); G30.9 Alzheimer's disease, unspecified; F02.80 Dementia in other diseases classified elsewhere, unspecified severity, without behavioral disturbance, psychotic disturbance, mood disturbance, and anxiety; I10 Essential (primary) hypertension; K74.60 Unspecified cirrhosis of liver; E11.9 Type 2 diabetes mellitus without complications; E78.5 Hyperlipidemia, unspecified; E55.9 Vitamin D deficiency, unspecified; Z86.73 Personal history of transient ischemic attack (TIA), and cerebral infarction without residual deficits; Z87.891 Personal history of nicotine dependence; Z79.84 Long term (current) use of oral hypoglycemic drugs; Z79.82 Long term (current) use of aspirin
CPT/HCPCS: 36415; 70450; 71045; 80053; 81003; 82948; 84484; 85025; 85610; 85730; 93005; 99284